=== PATIENT | male | born 1935 | race Caucasian/White ===

== ENCOUNTER → 2020-11-03 10:12 | Outpatient (BNVA) | payer MEDICARE, MEDICAID, SELFPAY | PROVIDERS: Family Provider Chiropractor Orthopedic; PCP Nurse Practitioner; Visit Provider Internal Medicine Cardiovascular Disease | DX: I10 Essential (primary) hypertension (principal); R60.9 Edema, unspecified; I63.9 Cerebral infarction, unspecified | CPT/HCPCS: 80053; 80061; 83880; 84443 ==

== ENCOUNTER → 2020-11-06 09:40 | Outpatient (BNVA) | payer MEDICARE, MEDICAID, SELFPAY | PROVIDERS: Family Provider Chiropractor Orthopedic; PCP Nurse Practitioner; Visit Provider Internal Medicine Cardiovascular Disease | DX: R60.9 Edema, unspecified (principal); I63.9 Cerebral infarction, unspecified; I10 Essential (primary) hypertension; R00.1 Bradycardia, unspecified; I48.11 Longstanding persistent atrial fibrillation; I25.10 Atherosclerotic heart disease of native coronary artery without angina pectoris; I48.91 Unspecified atrial fibrillation | CPT/HCPCS: 84439; 84481 ==

== ENCOUNTER 2021-04-09 11:52 | Outpatient (CLI) | payer MEDICARE, MEDICAID, SELFPAY ==
--- NOTE | 2021-04-09 12:09 | USCV_ITS ---
Mikal Waller Age: 86 Gender: M : 1935 Exam Date: 04/09/2021 12:49 Ordering Phys: Jose Welch Technologist: Exam Location: [facility] – [place] Indication: RT LEG PAIN AND SWELLING HISTORY: Lower extremity swelling. PROCEDURES: Venous duplex imaging was performed in only the right lower extremity. The following venous structures were evaluated: common femoral vein, profunda vein, femoral, popliteal and peroneal trunk veins, causing enous vein, superficial femoral vein, and the popliteal vein. In addition, the posterior tibial and peroneal trunk were evaluated. On the right side, the common femoral, superficial femoral, profunda femoral, popliteal, posterior tibial, greater saphenous veins and the peroneal trunk were identified and interrogated in the standard fashion. FINDINGS: THERE IS DVT IN THE RT SFV, RT POPLETEAL AND RT PERINEAL TRUNK. CALLED PRELIM TO THE PROVIDER. The mid to distal superficial femoral, popliteal and the peroneal trunk were found to be partially compressible. CONCLUSIONS Features of deep vein thrombosis, causing near total occlusion of the mid to distal superficial femoral, popliteal and peroneal trunk veins on the right side. The study is of suboptimal quality because of the poor ultrasonic window Compared to the study from 06/12/2016, the venous thrombosis appeared to be new Dr Louis Merida MD [facility] (Electronically Signed) Final Date: 10 April 2021 13:14 S
== END 2021-04-09 11:53 | disposition home or self-care (01) ==
LOC: RAD 12:01
PROVIDERS: PCP Nurse Practitioner; Visit Provider Nurse Practitioner
DX: M79.604 Pain in right leg (principal); M79.89 Other specified soft tissue disorders
CPT/HCPCS: 93971

== ENCOUNTER 2021-04-09 13:08 | Emergency (ER) | payer MEDICARE, MEDICAID, SELFPAY ==
[2021-04-09 13:39] VITALS: BP 183/90; PULSE 74; RESP 18; TEMP 36.7; O2SAT 98; BMI 35.0
--- NOTE | 2021-04-09 14:07 | W.ED.EXTPRO ---
HPI - Extremity Problem General: Chief complaint: Extremity Problem,Nontraumatic Stated complaint: JUST HAD U/S,FOUND BLOOD CLOTS IN RLE Time Seen by Provider: 04/09/21 13:46 History of Present Illness: HPI Narrative: Patient on Eliquis. Patient was sent over for an ultrasound right lower extremity because of swelling been going on few days. Ultrasound showed DVT. Patient has been keeping leg elevated. MD Complaint: extremity swelling Onset (ago): day(s) Location: right and lower extremity Associated symptoms: Deny chest pain, fever(s) or rash Review of Systems Const: Denies: fever(s), chills or body aches Eyes: Denies: change in vision or blurry vision ENMT: Denies: throat pain or nasal congestion Card: Denies: chest pain or dyspnea on exertion Resp: Denies: dyspnea, productive cough or non-productive cough GI: Denies: abdominal pain, nausea or vomiting : Denies: difficulty urinating Musc: Reports: extremity swelling (Right lower extremity times many days ultrasound showed DVT); Denies: extremity pain Skin/Breast: Denies: rash Neuro: Denies: headache(s) Psych: Denies: anxiety or depression Madi/Lymph: Denies: easy bruising PFSH ED PFSH: Medical History Atrial fibrillation CAD (coronary artery disease) Carotid stenosis CVA (cerebral vascular accident) HTN (hypertension) Hypercholesteremia Surgical History H/O carotid endarterectomy S/P CABG (coronary artery bypass graft) 1977 and 1992 Social History Smoking and tobacco status: never smoked Alcohol intake: current Alcohol intake frequency: holidays/special occasions only Physical Exam Const: COMMON NORMALS: no acute distress Neck/C-Spine: COMMON NORMALS: no JVD Chest: COMMONS NORMALS: normal inspection of the chest Resp: COMMON NORMALS: normal respiratory effort and No use of accessory muscles EFFORT & INSPECTION: Yes able to speak in complete sentences Cardio: COMMON NORMALS: no JVD Extremity: OTHER: Swelling to the right lower extremity slightly tender to touch no redness Psych: COMMON NORMALS: mental status grossly normal Course Vital Signs: Vital signs: Vital Signs Temperature 98.0 F 04/09/21 13:39 Pulse Rate 74 04/09/21 13:39 Respiratory Rate 18 04/09/21 13:39 Blood Pressure 183/90 04/09/21 13:39 Pulse Oximetry 98 04/09/21 13:39 MDM - Extremity (Nontraumatic) MDM Narrative: Medical decision making narrative: Patient with history of positive DVT right lower extremity via ultrasound today. Primary care provider sent him over after ultrasound. Patient already on Eliquis nothing further we can do for this DVT. Patient was encouraged to keep feet elevated above heart level a few hours a day. Can use moist heat and compression wraps. We will increase his diuretic medicine with hydrochlorothiazide and follow-up primary care provider here next week. 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 Condition: Stable Prescriptions: New hydrochlorothiazide 25 mg tablet 25 mg PO DAILY Qty: 14 RF: 0 Discontinued metolazone 2.5 mg tablet 2.5 mg PO .COMPLEX Qty: 10 RF: 4 No Action timolol maleate [Timoptic] 0.5 % drops 1 drop ophthalmic (eye) BID RF: 0 Lumigan 0.01 % drops 1 drop ophthalmic (eye) ONCE RF: 0 Eliquis 5 mg tablet See Rx Instructions .ROUTE .COMPLEX Qty: 60 RF: 11 atorvastatin 40 mg tablet 40 mg PO DAILY Qty: 90 RF: 3 losartan 50 mg tablet 50 mg PO DAILY Qty: 90 RF: 3 potassium chloride 20 mEq tablet extended release 20 meq PO DAILY RF: 0 potassium chloride 10 mEq capsule, extended release 10 meq PO DAILY Qty: 40 RF: 3 furosemide 40 mg tablet 40 mg PO .2 TABS AM, 1 TAB PM Qty: 90 RF: 4 Discharge Orders: Discharge ED (Routine); Ordered 04/09/21 Ordered By: Oscar Lee Referrals: Jose Welch, TRANSPORTATION WORKER [Primary Care Provider] - Discharge Diet: As Directed Discharge Activity: Increase activity as tolerated Patient Instructions: Deep Venous Thrombosis (ED), Leg Edema (ED) Activity Restrictions/Additional Instructions: Follow-up with medical provider as directed. Take medications as prescribed. Return to the ER or your medical provider if condition worsens. Please read and understand discharge instructions. If any questions ask please. Apply moist heat to the lower extremity and make sure you keep lower extremity above level heart least 2 to 4 hours a day. Coding Level of Care Code ED Inspector Weights And Measures for Alphonso Rich
== END 2021-04-09 14:21 | disposition home or self-care (01) ==
PROVIDERS: Emergency Provider Nurse Practitioner Family; PCP Nurse Practitioner
DX: I82.5Y1 Chronic embolism and thrombosis of unspecified deep veins of right proximal lower extremity (principal); Z79.01 Long term (current) use of anticoagulants; I25.10 Atherosclerotic heart disease of native coronary artery without angina pectoris; Z86.73 Personal history of transient ischemic attack (TIA), and cerebral infarction without residual deficits; Z95.1 Presence of aortocoronary bypass graft; M79.604 Pain in right leg; M79.89 Other specified soft tissue disorders
CPT/HCPCS: 93971; 99281

== ENCOUNTER 2021-05-20 10:03 | Outpatient (CLI) | payer MEDICARE, MEDICAID, SELFPAY ==
--- NOTE | 2021-05-20 10:15 | USCV_ITS ---
Mikal Waller Age: 86 Gender: M : 1935 Exam Date: 05/20/2021 10:38 Ordering Phys: Kellee Jain MD ([email or web address]) Technologist: Faiza Fabian Exam Location: [facility] – [place] Indication: A-FIB, CHF BP: 132 / 62 HR: 73 Rhythm: Atrial fibrillation Technical Quality: Adequate MEASUREMENTS (Male / Female) Normal Values 2D ECHO LV Diastolic Diameter PLAX 4.5 cm 4.2 - 5.9 / 3.9 - 5.3 cm LV Systolic Diameter PLAX 3.3 cm IVS Diastolic Thickness 1.9 cm 0.6 - 1.0 / 0.6 - 0.9 cm IVS Systolic Thickness 2.1 cm LVPW Diastolic Thickness 2.0 cm 0.6 - 1.0 / 0.6 - 0.9 cm LVPW Systolic Thickness 1.8 cm LVOT Diameter 2.0 cm LV Ejection Fraction 2D Teich 53.5 % LV Ejection Fraction MOD 2C 66.9 % LV Ejection Fraction 2C AL 66.3 % LA Diameter 3.8 cm LA Width 3.3 cm LA Height 6.4 cm RA Width 4.6 cm RA Height 5.7 cm Aorta at Sinotubular Diameter 3.3 cm DOPPLER AV Peak Velocity 129.0 cm/s LVOT Peak Velocity 77.0 cm/s AV Area Cont Eq vti 2.4 cm squared AV Area Cont Eq pk 1.9 cm squared MV Area PHT 3.2 cm squared MV E' Velocity 99.0 cm/s TR Peak Velocity 252.3 cm/s TR Peak Gradient 25.5 mmHg Right Atrial Pressure 3.0 mmHg Pulmonary Artery Systolic Pressu 28.5 mmHg PV Peak Velocity 99.0 cm/s RV Acceleration Time 0.1 s RV Ejection Time 0.3 s RV AcT/ET 0.3 FINDINGS Left Ventricle Normal left ventricular cavity size and mildly decreased systolic function. Left ventricular ejection fraction is estimated at 50-55 %. There is severe hypokinesis and thinning of mid to apical anteroseptal and mid to apical inferior kilgore. Flattened septum in systole consistent with right ventricle pressure overload. Rhythm precludes evaluation of diastolic function. Right Ventricle Mildly increased right ventricular size. Moderately decreased right ventricular systolic function. Right ventricular systolic pressure 46 mmHg. Right Atrium Mildly increased right atrial size. Right atrial pressure estimated at 15 mm Hg. Left Atrium Mildly increased left atrial size. Mitral Valve Mild mitral annular calcification. Mildly thickened mitral valve. No mitral valve stenosis. No mitral valve regurgitation. Aortic Valve Structurally normal trileaflet aortic valve. No aortic valve stenosis. Mild aortic valve regurgitation. Tricuspid Valve Structurally normal tricuspid valve. No tricuspid valve stenosis. [id number] tricuspid valve regurgitation. Pulmonic Valve Pulmonic valve not well visualized. Mild pulmonary valve regurgitation. Pericardium No pericardial effusion. Aorta Dilated inferior vena cava with decreased respiratory variations. CONCLUSIONS 1. This is a technically difficult study. Optison was used per protocol. 2. Normal left ventricular cavity size and mildly decreased systolic function. Left ventricular ejection fraction is estimated at 50-55 %. There is severe hypokinesis and thinning of mid to apical anteroseptal and mid to apical inferior kilgore. Flattened septum in systole consistent with right ventricle pressure overload. 3. Mildly increased right ventricular size. Moderately decreased right ventricular systolic function. 4. Mild to moderate pulmonary hypertension with pulmonary artery pressure estimated at 46 mm Hg. 5. [id number] tricuspid valve regurgitation. 6. Mild aortic and pulmonary valve regurgitation. 7. No prior similar studies to compare. Kellee Jain MD (Electronically Signed) Final Date: 24 May 2021 11:52 Amended: 24 May 2021 14:49 C
[2021-05-20] MEDS: perflutren protein-a microsphr 0.22 mg/mL SDV 3 mL (10:47)
== END 2021-05-20 10:04 | disposition home or self-care (01) ==
LOC: US 10:06
PROVIDERS: PCP Nurse Practitioner; Visit Provider Internal Medicine Cardiovascular Disease
DX: I48.91 Unspecified atrial fibrillation (principal); I50.9 Heart failure, unspecified; I27.20 Pulmonary hypertension, unspecified; I08.2 Rheumatic disorders of both aortic and tricuspid valves
CPT/HCPCS: C8929; Q9956

== ENCOUNTER 2021-10-04 10:09 | Outpatient (RCR) | payer OTHER, SELFPAY | END 2021-10-22 23:59 | disposition home or self-care (01) | LOC: GPT 10:09 | PROVIDERS: PCP Nurse Practitioner; Referring Provider Nurse Practitioner; Visit Provider Nurse Practitioner | DX: R26.89 Other abnormalities of gait and mobility (principal); I69.351 Hemiplegia and hemiparesis following cerebral infarction affecting right dominant side | CPT/HCPCS: 97110; 97112; 97116; 97162 ==

== ENCOUNTER 2021-11-12 16:26 | Inpatient (IN) | payer MEDICARE, MEDICAID, SELFPAY ==
[2021-11-12 16:36] VITALS: BP 141/77; PULSE 74; RESP 16; TEMP 36.3; O2SAT 100; BMI 33.0
[2021-11-12 16:57] LABS: Basophils % 0.1 %; Eosinophils # 0.1 10^3/uL (0.0-0.8); Eosinophils % 1.1 %; Lymphocytes # 1.8 10^3/uL (0.8-4.8); Lymphocytes % 18.5 %; Mean Corpuscular HGB Conc 28.2 g/dL (30.0-36.0); Mean Corpuscular Hemoglobin 18.9 pg (28.0-34.0); Mean Corpuscular Volume 67.1 fl (80-94); Mean Platelet Volume 10.2 fL (7.4-10.4); Monocytes # 1.8 10^3/uL (0.2-0.9); Monocytes % 18.3 %; Neutrophils # 5.99 10^3/uL (1.8-7.7); Neutrophils % 61.4 %; Nucleated Red Blood Cells # 0.4 /100WBC; Nucleated Red Blood Cells % 3.6 %; Platelet Count 500 10^3/cmm (130-400); Red Blood Count 2.22 10^6/uL (4.1-5.3); White Blood Count 9.8 10^3/uL (4.0-10.0)
[2021-11-12 17:04] LABS: Hematocrit 14.9 % (42.0-52.0); Hemoglobin 4.2 g/dL (11.7-16.6)
--- NOTE | 2021-11-12 17:17 | PC.NURSE ---
INFORMED DR. DANG OF HEMOGLOBIN OF 4.2 SHE VERBALIZED UNDERSTANDING. NO FURTHER ORDERS.
[2021-11-12 17:40] LABS: Alanine Aminotransferase 14 U/L (0-41); Albumin Level 3.8 g/dL (3.5-5.2); Alkaline Phosphatase 62 IU/L (40-130); Anion Gap 18.5 (5-19); Aspartate Amino Transferase 19 U/L (0-40); Blood Urea Nitrogen 49 mg/dL (8-23); Calcium 9.6 mg/dL (8.5-10.5); Carbon Dioxide 21 mmol/L (22-29); Chloride 95 mmol/L (98-107); Globulin 2.7 g/dL (1.3-4.6); Glucose 124 mg/dL (65-115); Magnesium 2.4 mg/dL (1.7-2.3); Osmolality Calculated 284 mOsm/kg (285-295); Potassium 4.5 mmol/L (3.5-5.1); Sodium 130 mmol/L (136-145); Total Bilirubin 0.4 mg/dL (0.15-1.2); Total Protein 6.5 g/dL (6.6-8.7)
--- NOTE | 2021-11-12 17:43 | CTR_ITS ---
PROCEDURE INFORMATION: Exam: CT Abdomen And Pelvis With Contrast Exam date and time: 11/12/2021 5:43 PM Age: 86 years old Clinical indication: Prior surgery; Patient HX: Gi bleed. Bloody stool since 08/12; Additional info: Gi bleed, pain TECHNIQUE: Imaging protocol: Computed tomography of the abdomen and pelvis with contrast. Radiation optimization: All CT scans at this facility use at least one of these dose optimization techniques: automated exposure control; mA and/or kV adjustment per patient size (includes targeted exams where dose is matched to clinical indication); or iterative reconstruction. Contrast material: VISI 320; Contrast volume: 95 ml; Contrast route: INTRAVENOUS (IV); COMPARISON: CT Abdomen/Pelvis Renal [id number] 12/16/2016 7:35 AM RADIATION DOSE METRICS: Total DLP (mGy-cm): 080527 FINDINGS: Lungs: Parenchymal scarring at the posterior right lower lobe lung base. Liver: Normal. No mass. Gallbladder and bile ducts: Normal. No calcified stones. No ductal dilation. Pancreas: Normal. No ductal dilation. Spleen: Spleen is absent. Adrenal glands: Normal. No mass. Kidneys and ureters: Atrophic renal parenchyma. Small simple bilateral renal cortical cysts. Negative for hydronephrosis. No calcified renal stones. Stomach and bowel: No focal bowel wall mass. Diverticulosis coli is present. No inflammatory bowel wall thickening. Negative for bowel obstruction. Negative for bowel perforation. No extravasation of intravascular contrast into the bowel lumen identified. Appendix: No evidence of appendicitis. Intraperitoneal space: Unremarkable. No free air. No significant fluid collection. Vasculature: Scattered calcified plaques of arteries. No dissection. No abdominal aortic aneurysm. Lymph nodes: Unremarkable. No enlarged lymph nodes. Urinary bladder: Unremarkable as visualized. Reproductive: Surgical clips or brachytherapy seeds bracketing the prostate gland. Bones/joints: Unremarkable. No acute fracture. Soft tissues: Unremarkable. CT/CT abdomen pelvis w con* [id number] IMPRESSION: 1. Negative for active gastrointestinal bleeding. 2. Negative for acute abdominopelvic pathology. COMMENTS: Consistent with the [employer]'s Incidental Findings Committee white paper (J Am Jigna Radiol 2018): Any incidental renal lesion less than 1 cm or classified as too small to characterize, or any incidental cystic renal lesion characterized as simple-appearing, is likely benign. No follow-up imaging is recommended for these lesions per consensus recommendations based on imaging criteria.
--- NOTE | 2021-11-12 17:43 | PC.PHAR ---
PTS DAUGHTER CONFIRMED THE PTS MEDICATIONS-PTS DAUGHTER STATES THE PT HAS NEVER TAKEN DONEPEZIL FILLED ON 10/06/21 STATES THEY DECIDED NOT TO GIVE IT TO THE PT--PTS DAUGHTER STATES THE PTS KCL JUST GOT INCREASED 20MEQ BID-PTS DAUGHTER STATES THE PT HASNT TAKEN METOLAZONE SINCE Monday11/07/[address] TOLD THE PT NOT TO TAKE- NOTES ARE MADE IN THE PHARMACY COMMENTS
--- NOTE | 2021-11-12 17:45 | ED_ITS ---
HPI - Recheck/Abnormal Lab/Rx General: Chief Complaint: Recheck/Abnormal Lab/Rx Stated Complaint: GI BLEED Time Seen by Provider: 11/12/21 16:39 Source: patient and family Mode of arrival: EMS Limitations: no limitations History of Present Illness: HPI narrative: 86-year-old male on Eliquis with bright red rectal bleeding, unclear duration, directed to the ED by PCP after outpatient labs resulted a hemoglobin of 4.6 earlier today. Hemoglobin on 10/18/2021 was 12.7 The patient has dementia and is unable to say how long he has been having bloody stools, but he has complained on occasion right-sided abdominal pain, per his daughter. She states he has been sleeping more than usual, generally weak. History of A. fib and DVT(while on eliquis) At this time, he denies abdominal pain, nausea, vomiting, rectal pain. MD complaint: wound re-check Review of Systems General: Reports: 10 or more systems reviewed and unremarkable except in HPI and below and Other (Dementia) Const: Reports: fatigue, malaise and daytime sleepiness; Denies: fever(s), chills or body aches Eyes: Denies: change in vision or blurry vision ENMT: Denies: bleeding gums or epistaxis Card: Reports: edema, swelling of feet/ankles, lightheadedness and dyspnea on exertion; Denies: chest pain or palpitations Resp: Denies: dyspnea, productive cough, hemoptysis or chest congestion GI: Reports: hematochezia and melena; Denies: abdominal pain, nausea, vomiting, hematemesis, diarrhea, constipation, bloating, pain on defecation or rectal pain : Denies: flank pain, difficulty urinating or dysuria Musc: Reports: back pain and extremity swelling Skin/Breast: Reports: changes in skin color; Denies: rash, pruritus or erythema Neuro: Reports: weakness in extremities, difficulty walking and dizziness; Denies: headache(s), numbness in extremities, frequent falls or confusion Psych: Reports: sleeping more and memory loss Endo: Reports: tired all the time and cold intolerance; Denies: polyuria or polydipsia Madi/Lymph: Reports: easy bruising and easy bleeding PFS ED PFSH: Medical History Atrial fibrillation CAD (coronary artery disease) Carotid stenosis CVA (cerebral vascular accident) HTN (hypertension) Hypercholesteremia Surgical History H/O carotid endarterectomy S/P CABG (coronary artery bypass graft) 1977 and 1992 Social History Smoking and tobacco status: never smoked Alcohol intake: current Alcohol intake frequency: holidays/special occasions only Physical Exam Const: COMMON NORMALS: patient oriented x3 GENERAL APPEARANCE: cooperative and ill appearing; not in distress, not diaphoretic and not Edematous NUTRITIONAL APPEARANCE: obese HENMT: COMMON NORMALS: normocephalic and atraumatic HEAD & SCALP: normocephalic and atraumatic FACE & SINUS: normal facial exam and face symmetric Eye: COMMON NORMALS: Equal, round and reactive pupils present, EOMs intact bilaterally and no scleral icterus CONJUNCTIVA: Yes conjunctival abnormal positive bilateral pallor PUPIL: Yes Equal, round and reactive pupils present Neck/C-Spine: COMMON NORMALS: full ROM, no lymphadenopathy, supple and no JVD Lymph: LYMPHATIC: lymphedema (Right lower extremity) Chest: COMMONS NORMALS: normal inspection of the chest Resp: COMMON NORMALS: normal respiratory effort and No use of accessory muscles EFFORT & INSPECTION: Yes able to speak in complete sentences, No tachypneic and No respiratory distress Cardio: COMMON NORMALS: no JVD RHYTHM: abnormal rhythm irregularly irregular GI: COMMON NORMALS: Normal to inspection, nondistended, normoactive bowel sounds present and non-tender INSPECTION: No abdominal wall ecchymosis, No abdominal distension and No Fluid wave present AUSCULTATION: Yes normoactive bowel sounds PERCUSSION: no fluid wave Extremity: GENERAL: Yes edema Neuro: COMMON NORMALS: patient oriented x3 and no focal motor deficits SPEECH: speech normal GAIT: Yes Unable to assess gait Skin: COMMON NORMALS: no rashes or lesions noted, no wounds, no jaundice and no petechiae GENERAL SKIN EXAM: no rashes or lesions noted and no ecchymo Course Vital Signs: Vital signs: Vital Signs Temperature 97.7 F 11/12/21 19:01 Pulse Rate 60 11/12/21 19:33 Respiratory Rate 14 11/12/21 19:33 Blood Pressure 133/68 11/12/21 19:33 Pulse Oximetry 95 11/12/21 19:33 MDM - Recheck/Abnormal Lab/Rx MDM Narrative: Medical decision making narrative: 86-year-old male on Eliquis brought in by EMS with symptomatic anemia from a GI bleed. No history of cirrhotic liver disease or prior GI bleeding. Hemodynamically stable on arrival, normal mentation, no active hematemesis or brisk rectal bleeding. Other cell counts stable. PRBC transfusion x2 ordered. FFPx1 Andexxa to reverse eliquis. Considering that he takes it for A. fib protonix 80mg IV for presumed upper GI source. No acute process on CT abd/pelvis, no active extravasation of contrast into the bowel lumen. The patient will be admitted while he recieves his transfusion, serial hbg checks, and close monitoring for active/recurrent bleeding. Accepting hospitalist, Dr. Mac Lab Data: Attestation: I reviewed the patient's lab results. Labs: Lab Results 11/12/21 11/12/21 11/12/21 16:50 16:50 16:50 WBC 9.8 10^3/uL 10^3/ uL (4.0-10.0) RBC 2.22 10^6/uL L 10 ^6/uL (4.1-5.3) Hgb 4.2 g/dL L* g/dL (11.7-16.6) Hct 14.9 % L* % (42.0-52.0) MCV 67.1 fl L fl (80-94) MCH 18.9 pg L pg (28.0-34.0) MCHC 28.2 g/dL L g/dL (30.0-36.0) RDW 22.0 % H % (12.1-15.1) Plt Count 500 10^3/cmm H 10 ^3/cmm (130-400) MPV 10.2 fL fL (7.4-10.4) Neut % (Auto) 61.4 % % Lymph % (Auto) 18.5 % % Sioux % (Auto) 18.3 % % Eos % (Auto) 1.1 % % Baso % (Auto) 0.1 % % Neut # (Auto) 5.99 10^3/uL 10^3 /uL (1.8-7.7) Lymph # (Auto) 1.8 10^3/uL 10^3/ uL (0.8-4.8) Sioux # (Auto) 1.8 10^3/uL H 10^ 3/uL (0.2-0.9) Eos # (Auto) 0.1 10^3/uL 10^3/ uL (0.0-0.8) Baso # (Auto) 0.0 10^3/uL 10^3/ uL (0.0-0.1) Nucleated RBC % (a uto) 3.6 % % Nucleated RBCs # 0.4 /100WBC /100W BC PT INR Sodium 130 mmol/L L mmol /L (136-145) Potassium 4.5 mmol/L mmol/L (3.5-5.1) Chloride 95 mmol/L L mmol/ L (98-107) Carbon Dioxide 21 mmol/L L mmol/ L (22-29) Anion Gap 18.5 (5-19) BUN 49 mg/dL H mg/dL (8-23) Creatinine 1.2 mg/dL mg/dL (0.7-1.2) GFR Calculation Not Reportable Glucose 124 mg/dL H mg/dL (65-115) Calculated Osmolal ity 284 mOsm/kg L mOs m/kg (285-295) Calcium 9.6 mg/dL mg/dL (8.5-10.5) Magnesium 2.4 mg/dL H mg/dL (1.7-2.3) Total Bilirubin 0.4 mg/dL mg/dL (0.15-1.2) AST 19 U/L U/L (0-40) ALT 14 U/L U/L (0-41) Alkaline Phosphata se 62 IU/L IU/L (40-130) Total Protein 6.5 g/dL L g/dL (6.6-8.7) Albumin 3.8 g/dL g/dL (3.5-5.2) Globulin 2.7 g/dL g/dL (1.3-4.6) Urine Color Urine Appearance Urine pH Ur Specific Gravit y Urine Protein Urine Glucose (UA) Urine Ketones Urine Blood Urine Nitrate Urine Bilirubin Urine Urobilinogen Ur Leukocyte Vonnie ase Blood Type A Negative Rho(D) Type Negative Antibody Screen Positive Antibody Identific ation Anti-Fya Crossmatch See Detail 01/21/22 01/21/22 16:50 17:00 WBC RBC Hgb Hct MCV MCH MCHC RDW Plt Count MPV Neut % (Auto) Lymph % (Auto) Sioux % (Auto) Eos % (Auto) Baso % (Auto) Neut # (Auto) Lymph # (Auto) [place] # (Auto) Eos # (Auto) Baso # (Auto) Nucleated RBC % (a uto) Nucleated RBCs # PT 19.60 SECONDS H S ECONDS (12.1-14.9) INR 1.62 H (0.8-1.2) Sodium Potassium Chloride Carbon Dioxide Anion Gap BUN Creatinine GFR Calculation Glucose Calculated Osmolal ity Calcium Magnesium Total Bilirubin AST ALT Alkaline Phosphata se Total Protein Albumin Globulin Urine Color Yellow (Yellow) Urine Appearance Clear (CLEAR) Urine pH 7 (5-7) Ur Specific Gravit y 1.005 (1.005-1.030) Urine Protein Neg (Negative) Urine Glucose (UA) Norm (Normal) Urine Ketones Negative (Negative) Urine Blood Neg (Negative) Urine Nitrate Negative (Negative) Urine Bilirubin Neg (Negative) Urine Urobilinogen Norm mg/dL mg/dL (Negative) Ur Leukocyte Vonnie ase Negative (Negative) Blood Type Rho(D) Type Antibody Screen Antibody Identific ation Crossmatch Discharge Plan Discharge Patient Disposition: Admitted As Inpatient Clinical Impression: Symptomatic anemia, Anticoagulated Gastrointestinal bleeding Qualifiers: GI bleed type/associated pathology: unspecified gastrointestinal hemorrhage type Qualified Code(s): K92.2 - Gastrointestinal hemorrhage, unspecified Condition: Stable Coding Level of Care Code ED Psychology Lecturer for [facility] Fwd Exam Comprehensive
[2021-11-12 17:51] LABS: INR 1.62 (0.8-1.2)
[2021-11-12] MEDS: iodixanol 320 mg/mL 100mL Btl IV (18:02)
[2021-11-12] MEDS: factor xa, inactivated-zhzo 400 MG in empty flexible container 1 EACH, non-DEHP filter ... 180 MG IV (18:18)
[2021-11-12 18:31] LABS: Add Urine Microscopic? NO; Charge for UA Resulting for Rev
[2021-11-12 18:34] LABS: Bilirubin Urine Neg (Negative); Blood Urine Neg (Negative); Glucose Urine UA Norm (Normal); Ketones Urine Negative (Negative); Leukocyte Esterase Urine Negative (Negative); Nitrate Urine Negative (Negative); Protein Urine Neg (Negative); Specific Gravity, Urine 1.005 (1.005-1.030); Urine Appearance Clear (CLEAR); Urine Color Yellow (Yellow); Urobilinogen Urine Norm (Negative); pH Urine 7 (5-7)
[2021-11-12 18:41] VITALS: BP 150/53; PULSE 67; RESP 15; TEMP 36; O2SAT 96
[2021-11-12] MEDS: factor xa, inactivated-zhzo 480 MG in empty flexible container 1 EACH, non-DEHP filter ... 24 MG IV (18:41)
[2021-11-12 19:01] VITALS: BP 127/60; PULSE 69; RESP 16; TEMP 36.5; O2SAT 94
--- NOTE | 2021-11-12 19:19 | PC.NURSE ---
REPORT GIVE WILLIAM JACOBO RN ASSUMED CARE.
[2021-11-12 19:33] VITALS: BP 133/68; PULSE 60; RESP 14; O2SAT 95
--- NOTE | 2021-11-12 20:40 | ECG_ITS ---
[facility] Test Date: 2021-11-13 Pat Name: Mikal Waller Department: Room: ICU06 Gender: Male Protection Consultant: : 1935 Requested By: Magno Mac Order Number: [id number] Marciano MD: Louis Merida M.D. Measurements Intervals [place] Rate: 70 P: VA: QRS: 13 QRSD: 112 T: 60 QT: 448 QTc: 484 Interpretive Statements ATRIAL FIBRILLATION WITH ABERRANT CONDUCTION OR VENTRICULAR PREMATURE COMPLEXES ANTEROSEPTAL MYOCARDIAL INFARCTION , PROBABLY OLD [40+ ms Q WAVE IN V1-V4] ST DEPRESSION, CONSIDER SUBENDOCARDIAL INJURY [0.1+ mV ST DEPRESSION] Compared to ECG 10/18/2019 17:05:19 ST (T wave) deviation now present Myocardial infarct finding still present Electronically Signed On 11-14-2021 20:07:18 SCHOOL OCCUPATIONAL THERAPIST by Louis Merida M.D. [email or web address]
--- NOTE | 2021-11-12 20:45 | P.HP_ITS ---
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 Hemoglobin on 10/18/2021 was 12.7. When I examined the patient he was not sure of any bright red blood per rectum or melena, patient has underlying dementia and is not a good historian.Patient currently denies any chest pain, shortness of breath, abdominal pain , nausea , vomiting. Upon arrival in the ER: He was worked up for above-mentioned complaint: Pertinent imaging studies: CT abdomen and pelvis with contrast: 1. Negative for active gastrointestinal bleeding. 2. Negative for acute abdominopelvic pathology Pertinent labs: WBC 9.8, H&H: 4.2/ 14 , platelet count: 500 , PT/INR: 19.60/1.62 , sodium 130, serum potassium 4.5, BUN and serum creatinine:49/1.2 , Patient received Adenaxate Alpha in the ER and was also given Protonix 80 mg IV one-time dose. Was typed and crossmatched for 3 units PRBC. Review of Systems Const: Denies: fever(s), chills, body aches, change in appetite or diaphoresis Card: Denies: palpitations, edema, swelling of feet/ankles, dyspnea on exertion, orthopnea or leg pain with exertion Resp: Denies: dyspnea, productive cough, wheezing or pain on inspiration GI: Denies: abdominal pain, nausea, vomiting, diarrhea or constipation : Denies: flank pain or difficulty urinating Musc: Denies: back pain, extremity pain or extremity swelling Neuro: Denies: headache(s), difficulty walking or confusion Medications/Allergies Home Medications Medication Instructions Recorded Confirmed Last Taken Type apixaban [Eliquis] 5 mg PO BID 11/12/21 11/12/21 11/12/21 08:30 History aspirin [Aspir-81] 81 mg PO QPM 11/12/21 11/12/21 11/11/21 History atorvastatin 40 mg PO BEDTIME 11/12/21 11/12/21 11/11/21 History fluticasone propionate 1 spray INTRANASAL BID 11/12/21 11/12/21 Unknown History furosemide 80 mg PO BID 11/12/21 11/12/21 11/12/21 13:30 History ipratropium bromide [Atrovent HFA] 2 puff INHALATION QID PRN 11/12/21 11/12/21 Unknown History losartan 25 mg PO DAILY@12 11/12/21 11/12/21 11/12/21 History magnesium 500 mg PO QPM 11/12/21 11/12/21 11/11/21 History metolazone See Rx Instructions .ROUTE .COMPLEX 11/12/21 11/12/21 11/07/21 History potassium chloride 20 meq PO BID 11/12/21 11/12/21 11/12/21 13:30 History spironolactone 25 mg PO DAILY@12 11/12/21 11/12/21 11/12/21 History Allergies Allergy/AdvReac Type Severity Reaction Status Date / Time No Known Allergies Allergy Verified 11/12/21 17:47 PFSH Acute PFSH: Medical History Atrial fibrillation CAD (coronary artery disease) Carotid stenosis CVA (cerebral vascular accident) HTN (hypertension) Hypercholesteremia Surgical History H/O carotid endarterectomy S/P CABG (coronary artery bypass graft) 1977 and 1992 Social History Smoking and tobacco status: never smoked Alcohol intake: current Alcohol intake frequency: holidays/special occasions only Vitals/I&O/Wt Last Vital Signs Temp 97.7 F 11/12/21 19:01 Pulse 60 11/12/21 19:33 Resp 14 11/12/21 19:33 BP 133/68 11/12/21 19:33 Pulse Ox 95 11/12/21 19:33 11/12/21 11/12/21 11/12/21 06:59 14:59 22:59 Intake Total 0 / 0 Balance 0 / 0 Weight last 48 hrs Weight 113.398 kg Physical Exam Const: COMMON NORMALS: patient oriented x3 HENMT: COMMON NORMALS: normocephalic and atraumatic HEAD & SCALP: normocephalic and atraumatic Resp: COMMON NORMALS: clear to auscultation bilaterally AUSCULTATION: clear to auscultation bilaterally Cardio: COMMON NORMALS: No rub (Cardio) PERIPHERAL PULSES: Peripheral pulses 2+ throughout OTHER: Irregularly irregular rhythm, S1-S2 variable intensity GI: COMMON NORMALS: Normal to inspection, nondistended, normoactive bowel sounds present, Soft to palpation, non-tender, No hepatosplenomegaly present and no masses AUSCULTATION: Yes normoactive bowel sounds PALPATION: Yes Soft to palpation and Yes No hepatosplenomegaly present RECTAL EXAM: Yes deferred Extremity: COMMON NORMALS: no clubbing, cyanosis or edema and no pedal edema Neuro: COMMON NORMALS: patient oriented x3 Data : 11/13/21 03:02 11/13/21 03:02 A&P Assessment and plan (1) Gastrointestinal bleeding: Status: Acute (2) Anemia: Status: Acute (3) Atrial fibrillation: Status: Acute (4) Hyponatremia: Status: Acute (5) CVA (cerebral vascular accident): Status: Acute Qualifiers: CVA mechanism: unspecified Qualified Code(s): I63.9 - Cerebral infarction, unspecified (6) CAD (coronary artery disease): Status: Acute (7) Carotid stenosis: Status: Acute (8) HTN (hypertension): Status: Acute (9) S/P CABG (coronary artery bypass graft): Status: Acute Additional A&P Information Mikal Waller is a 86 year old male PMHx of HTN, CAD s/p CABG in 1977 and 1995 (BENDER-LAD, SVG to RCA and OM, 30% distal LM, 30-40% stenosis in large diagonal, occluded [place] RCA and LAD); carotid artery stenosis s/p right carotid endarterectomy, dyslipidemia obesity , 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 Hemoglobin on 10/18/2021 was 12.7. #Severe anemia secondary to GI bleed likely secondary to anticoagulation side effect: Admission hemoglobin 4.2 repeat hemoglobin has down trended to 3.9. Continue to monitor H&H Q4h Transfused 3 units PRBC Protonix 40 mg IV every 12 hours day N.p.o. Monitor intake output Patient will need EGD and possibly colonoscopy. #Hypovolemic hyponatremia: Patient has received 1 L normal saline bolus in the ER Continue normal saline at 75 cc an hour #History of DVT: Currently anticoagulation on hold #History of A. fib: Currently rate is well controlled. Continue telemetry monitoring Anticoagulation on hold #History of coronary artery disease status post CABG #History of CVA #History of carotid artery stenosis status post right CEA #CODE STATUS: Full code Attestations Medical Necessity Statement*: Patient is to be in hospital for management of severe anemia secondary to GI bleed. Anticipated length of stay greater than 2 midnights. Coding Level of Care Code Acute Labor Arbitrator for g Fwd Exam Detailed Diagnoses Gastrointestinal bleeding K92.2 Anemia D64.9 Atrial fibrillation I48.91 Hyponatremia E87.1 CVA (cerebral vascular accident) I63.9 CVA mechanism: unspecified CAD (coronary artery disease) I25.10 Carotid stenosis I65.29 HTN (hypertension) I10 S/P CABG (coronary artery bypass graft) Z95.1
[2021-11-12 22:07] VITALS: BP 107/49; PULSE 75; RESP 16; TEMP 36.4; O2SAT 99
[2021-11-12] MEDS: sodium chloride 0.9% (100 ml) 100 ML 50 ML (22:07)
[2021-11-12] MEDS: pantoprazole 40 mg SDV 80 MG IVP (22:16)
[2021-11-12 22:25] LABS: Hematocrit 14.1 % (42.0-52.0); Hemoglobin 3.9 g/dL (11.7-16.6)
[2021-11-12 22:30] VITALS: BP 104/45; PULSE 60; RESP 19; TEMP 36.3; O2SAT 97
[2021-11-13] VITALS (57 sets, daily range): BP systolic 101–151; BP diastolic 43–83; PULSE 39–101; RESP 12–34; TEMP 36.7; O2SAT 90–99
--- NOTE | 2021-11-13 00:48 | PC.NURSE ---
Arrived from ED with 1st unit of blood infusing, AO x4, no c/o, transferred to bed with lift sheet
--- NOTE | 2021-11-13 01:03 | PC.NURSE ---
Dr. Mac on unit, this nurse inquired about giving lasix between blood products due to 3 units being ordered, this nurse was advised to monitor patient
[2021-11-13 03:21] LABS: Basophils % 0.2 %; Eosinophils # 0.2 10^3/uL (0.0-0.8); Eosinophils % 1.2 %; Lymphocytes # 2.7 10^3/uL (0.8-4.8); Lymphocytes % 20.8 %; Mean Corpuscular HGB Conc 28.2 g/dL (30.0-36.0); Mean Corpuscular Hemoglobin 19.8 pg (28.0-34.0); Mean Corpuscular Volume 70.2 fl (80-94); Mean Platelet Volume 10.8 fL (7.4-10.4); Monocytes # 2.4 10^3/uL (0.2-0.9); Monocytes % 18.5 %; Neutrophils # 7.71 10^3/uL (1.8-7.7); Neutrophils % 58.8 %; Nucleated Red Blood Cells # 0.4 /100WBC; Nucleated Red Blood Cells % 3.2 %; Platelet Count 480 10^3/cmm (130-400); Red Blood Count 2.42 10^6/uL (4.1-5.3); Red Cell Distribution Width 24.5 % (12.1-15.1); White Blood Count 13.1 10^3/uL (4.0-10.0)
[2021-11-13 03:23] LABS: Hemoglobin 4.8 g/dL (11.7-16.6)
[2021-11-13] MEDS: sodium chloride 0.9% (100 ml) 100 ML (03:37)
[2021-11-13 03:56] LABS: Alanine Aminotransferase 14 U/L (0-41); Albumin Level 3.6 g/dL (3.5-5.2); Alkaline Phosphatase 61 IU/L (40-130); Aspartate Amino Transferase 26 U/L (0-40); Blood Urea Nitrogen 47 mg/dL (8-23); Calcium 9.4 mg/dL (8.5-10.5); Carbon Dioxide 22 mmol/L (22-29); Chloride 97 mmol/L (98-107); Globulin 2.8 g/dL (1.3-4.6); Glucose 119 mg/dL (65-115); Magnesium 2.5 mg/dL (1.7-2.3); Osmolality Calculated 287 mOsm/kg (285-295); Sodium 132 mmol/L (136-145); Total Bilirubin 0.6 mg/dL (0.15-1.2); Total Protein 6.4 g/dL (6.6-8.7)
[2021-11-13 03:57] LABS: Anion Gap 17.7 (5-19); Potassium 4.7 mmol/L (3.5-5.1)
--- NOTE | 2021-11-13 08:06 | P.PN_ITS ---
Subjective Subjective: Interval history: Nursing reports no obvious bright red blood that has been passed in the ICU. He is currently receiving his third unit of packed red blood cells. He denies any abdominal pain. Medications: Reviewed: Yes Vitals/I&O/Wt Last Vital Signs Temp 98.1 F 11/13/21 03:59 Pulse 62 11/13/21 07:28 Resp 17 11/13/21 07:28 BP 110/48 11/13/21 07:28 Pulse Ox 98 11/13/21 07:28 11/12/21 11/13/21 11/13/21 22:59 06:59 14:59 Intake Total 194 / 194 700 / 894 0 / 0 Output Total 1400 / 1400 Balance 194 / 194 -700 / -506 0 / 0 Weight last 48 hrs Weight 109.316 kg Weight 113.398 kg Physical Exam Narrative: EXAM NARRATIVE: General exam no apparent distress Neck is supple Cardiovascular irregular, irregular with slightly slow rate Lungs clear Abdomen is soft. Bowel sounds are noted Extremities 1+ edema bilaterally Urinary Catheter Management^: Mo: Cath Placed During This Visit: yes Urinary Catheter Date of Insertion: 11/12/21 Data : 11/13/21 03:02 11/13/21 03:02 A&P Assessment and plan (1) Gastrointestinal bleeding: Presented with bright red blood per rectum. Received some FFP, and is receiving his third unit of blood currently. Hemoglobin and hematocrit will be done following transfusion Was on Eliquis. This is on hold along with antiplatelets It appears that he received factor Xa and activated in prothrombin complex as well GI consult regarding bleeding Protonix IV Status: Acute Qualifiers: GI bleed type/associated pathology: unspecified gastrointestinal hemorrhage type Qualified Code(s): K92.2 - Gastrointestinal hemorrhage, unspecified (2) Anemia: Currently being transfused. Recheck hemoglobin following. Secondary to acute GI blood loss. Status: Acute (3) Atrial fibrillation: Rhythm appears controlled currently. Anticoagulation discontinued currently secondary to bleeding Status: Acute (4) Hyponatremia: Mild. Continue to monitor Status: Acute (5) CVA (cerebral vascular accident): History of CVA in the past. I informed the patient that his CVA risk is higher being off anticoagulant but we have no choice at this time. Status: Acute Qualifiers: CVA mechanism: unspecified Qualified Code(s): I63.9 - Cerebral i nfarction, unspecified (6) CAD (coronary artery disease): Hold any antiplatelets currently. This is secondary to recent active bleeding. Last echo April demonstrated EF 50 to 55%. It appears he is being treated for chronic systolic heart failure and this currently appears compensated. Will monitor for any fluid overload with blood transfusion. Status: Acute (7) Carotid stenosis: Status: Acute (8) HTN (hypertension): Status: Acute (9) S/P CABG (coronary artery bypass graft): Status: Acute Additional A&P Information History of DVT, March right lower extremity Currently a full code SCDs for DVT prophylaxis Attestations Medical Necessity Statement*: Needs continued hospitalization secondary to severe anemia, acute GI bleed Critical Care Time: Critical Care Time (min): 32 Other Attestations: The high probability of a clinically significant, sudden or life threatening deterioration of the patient's [GI, cardiac, vascular] system(s) required my full and direct attention, intervention and personal ma nagement. The critical care time is as shown. This time is in addition to time spent performing any reported procedures but includes the following: [x] Data and vital sign review and interpretation [x] Patient assessment, examination and intervention [x] Documentation [x] Medication orders and management Coding Level of Care Code Acute Mainframe Systems Programmer for Chg Fwd Diagnoses Gastrointestinal bleeding K92.2 GI bleed type/associated pathology: unspecified gastrointestinal hemorrhage type Anemia D64.9 Atrial fibrillation I48.91 Hyponatremia E87.1 CVA (cerebral vascular accident) I63.9 CVA mechanism: unspecified CAD (coronary artery disease) I25.10 Carotid stenosis I65.29 HTN (hypertension) I10 S/P CABG (coronary artery bypass graft) Z95.1
[2021-11-13] MEDS: pantoprazole 40 mg SDV IVP ×2 (10:28→20:32)
[2021-11-13] MEDS: sodium chloride 0.9% (100 ml) 100 ML 125 ML (10:48)
[2021-11-13] MEDS: FUROsemide 10 mg/mL SDV 4mL 40 MG IVP (15:10)
[2021-11-13] MEDS: lanolin oint 7 gm 1 APPLIC TOPICAL (17:39)
[2021-11-13 17:48] LABS: Hematocrit 27.3 % (42.0-52.0); Hemoglobin 8.5 g/dL (11.7-16.6)
[2021-11-14] VITALS (37 sets, daily range): BP systolic 94–155; BP diastolic 43–113; PULSE 50–116; RESP 15–26; TEMP 36.6–36.9; O2SAT 91–97
[2021-11-14] MEDS: zolpidem 5 mg Tablet PO ×2 (01:02→23:57)
[2021-11-14 05:28] LABS: Basophils # 0.1 10^3/uL (0.0-0.1); Basophils % 0.6 %; Eosinophils # 0.4 10^3/uL (0.0-0.8); Eosinophils % 2.1 %; Hematocrit 25.3 % (42.0-52.0); Hemoglobin 7.7 g/dL (11.7-16.6); Lymphocytes # 2.5 10^3/uL (0.8-4.8); Lymphocytes % 14.9 %; Mean Corpuscular HGB Conc 30.4 g/dL (30.0-36.0); Mean Corpuscular Hemoglobin 23.1 pg (28.0-34.0); Mean Platelet Volume 10.9 fL (7.4-10.4); Monocytes # 3.2 10^3/uL (0.2-0.9); Monocytes % 18.6 %; Neutrophils # 10.57 10^3/uL (1.8-7.7); Neutrophils % 62.2 %; Nucleated Red Blood Cells # 1.6 /100WBC; Nucleated Red Blood Cells % 9.4 %; Platelet Count 453 10^3/cmm (130-400); Red Blood Count 3.33 10^6/uL (4.1-5.3); Red Cell Distribution Width 24.4 % (12.1-15.1)
[2021-11-14 05:48] LABS: Alanine Aminotransferase 12 U/L (0-41); Albumin Level 3.5 g/dL (3.5-5.2); Alkaline Phosphatase 71 IU/L (40-130); Aspartate Amino Transferase 20 U/L (0-40); Blood Urea Nitrogen 30 mg/dL (8-23); Calcium 8.6 mg/dL (8.5-10.5); Carbon Dioxide 25 mmol/L (22-29); Chloride 102 mmol/L (98-107); Globulin 2.7 g/dL (1.3-4.6); Glucose 109 mg/dL (65-115); Osmolality Calculated 291 mOsm/kg (285-295); Sodium 137 mmol/L (136-145); Total Bilirubin 2.1 mg/dL (0.15-1.2); Total Protein 6.2 g/dL (6.6-8.7)
--- NOTE | 2021-11-14 07:26 | XRR_ITS ---
PROCEDURE INFORMATION: Exam: XR Chest Exam date and time: 11/14/2021 7:26 AM Age: 86 years old Clinical indication: Condition or disease; Prior surgery; Surgery date: 6+ months; Patient HX: HX of leukocytosis TECHNIQUE: Imaging protocol: XR of the chest. Views: 1 view. COMPARISON: CR Chest 1 [place] [id number] 10/18/2019 3:32 PM FINDINGS: Lungs: No consolidation. Bibasilar scarring. Pleural spaces: No pleural effusion. No pneumothorax. Heart/Mediastinum: Heart size is within normal limits for AP technique. Bones/joints: Sternotomy wires noted. Visualized osseous structures are intact. XR/XR chest 1V portable [id number] IMPRESSION: No acute findings.
--- NOTE | 2021-11-14 07:41 | PM.PN ---
Subjective Subjective: Interval history: Mikal reports he is feeling okay. He has not passed any stool overnight. Denies being short of breath. Medications: Reviewed: Yes Vitals/I&O/Wt Last Vital Signs Temp 98.0 F 11/13/21 15:17 Pulse 83 11/14/21 06:00 Resp 20 H 11/14/21 05:00 BP 110/53 11/14/21 04:30 Pulse Ox 91 11/14/21 05:00 11/13/21 11/14/21 11/14/21 22:59 06:59 14:59 Intake Total 350 / 1150 Output Total 1999 / 1999 1500 / 3500 Balance -1650 / -850 -1500 / -2350 Weight last 48 hrs Weight 113.852 kg Weight 109.316 kg Weight 113.398 kg Physical Exam Narrative: EXAM NARRATIVE: General exam no apparent distress Neck is supple Cardiovascular irregular, irregular with controlled rate Lungs clear Abdomen is soft. Bowel sounds are noted Extremities 1+ edema bilaterally Urinary Catheter Management^: Mo: Cath Placed During This Visit: yes Urinary Catheter Date of Insertion: 11/12/21 Data : 11/14/21 04:25 11/14/21 04:25 A&P Assessment and plan (1) Gastrointestinal bleeding: Presented with bright red blood per rectum. Received some FFP Ultimately was transfused 5 units packed red blood cells Was on Eliquis. This is on hold along with antiplatelets It appears that he received factor Xa and activated in prothrombin complex as well GI consult regarding bleeding Continue Protonix IV Repeat hemoglobin this afternoon Initiate clear liquid diet Status: Acute Qualifiers: GI bleed type/associated pathology: unspecified gastrointestinal hemorrhage type Qualified Code(s): K92.2 - Gastrointestinal hemorrhage, unspecified (2) Anemia: Received 5 units of packed red blood cells secondary to severe acute GI blood loss Status: Acute (3) Atrial fibrillation: Rhythm appears controlled currently. Anticoagulation discontinued currently secondary to bleeding Status: Acute (4) Hyponatremia: Resolved Status: Acute (5) CVA (cerebral vascular accident): History of CVA in the past. I informed the patient that his CVA risk is higher being off anticoagulant but we have no choice at this time. Status: Acute Qualifiers: CVA mechanism: unspecified Qualified Code(s): I63.9 - Cerebral infarction, unspecified (6) CAD (coronary artery disease): Hold any antiplatelets currently. This is secondary to recent active bleeding. Last echo April demonstrated EF 50 to 55%. It appears he is being treated for chronic systolic heart failure and this currently appears compensated. Received Lasix following transfusion. Initiate many of his home medications today. Status: Acute (7) Carotid stenosis: Status: Acute (8) HTN (hypertension): Status: Acute (9) S/P CABG (coronary artery bypass graft): Status: Acute Additional A&P Information History of DVT, March right lower extremity Currently a full code SCDs for DVT prophylaxis May transfer out of ICU Attestations Medical Necessity Statement*: Needs continued hospitalization secondary to severe GI bleed requiring 5 units of packed red blood cells per Coding Level of Care Code Acute Mill Crane Operator for Chg Fwd Diagnoses Gastrointestinal bleeding K92.2 GI bleed type/associated pathology: unspecified gastrointestinal hemorrhage type Anemia D64.9 Atrial fibrillation I48.91 Hyponatremia E87.1 CVA (cerebral vascular accident) I63.9 CVA mechanism: unspecified CAD (coronary artery disease) I25.10 Carotid stenosis I65.29 HTN (hypertension) I10 S/P CABG (coronary artery bypass graft) Z95.1
[2021-11-14] MEDS: potassium chloride ER 20 mEq Tablet PO ×2 (08:32→18:12)
[2021-11-14] MEDS: FUROsemide 40 mg Tablet 80 MG PO ×2 (08:32→18:11)
[2021-11-14] MEDS: pantoprazole 40 mg SDV IVP ×2 (08:32→21:45)
--- NOTE | 2021-11-14 11:15 | PM.CONSULT ---
Providers/Reason For Consult Consulting Physician/Specialty*: Endoscopy Reason for Consult*: Profound anemia and hematochezia Attending Physician: Martin Hall MD Primary Care Provider: NAEL Candelario History of Present Illness History of Present Illness Mikal Waller is a 86 year old male who was discovered by family to have blood in his seat at home. He subsequently ended up in the emergency room where he was noted to have profoundly low hemoglobin of 3.9. By report the stool is bright red blood, but there is some confusion about how long its been going on or if there was a melanotic prodrome. I had the pleasure of seeing the patient in the past by doing a colonoscopy on him in 2010. I did that endoscopy at that time, due to a personal history of colon polyps. He has not had any endoscopy in the following 11 years. He is dealing with some multi-infarct dementia, by report of the family, and as a result is not an optimal historian. When I questioned him this morning he is in no distress, and the staff reports no bloody stools for quite some time. It should be noted that he was on antiplatelet and Eliquis therapy on admission. He has received a fair amount of blood and clotting aids since admission. His hemoglobin is up to 7.7 now. Review of Systems General: Reports: ROS unobtainable due to mental status Medications/Allergies Home Medications Medication Instructions Recorded Confirmed Last Taken Type apixaban [Eliquis] 5 mg PO BID 11/12/21 11/12/21 11/12/21 08:30 History aspirin [Aspir-81] 81 mg PO QPM 11/12/21 11/12/21 11/11/21 History atorvastatin 40 mg PO BEDTIME 11/12/21 11/12/21 11/11/21 History fluticasone propionate 1 spray INTRANASAL BID 11/12/21 11/12/21 Unknown History furosemide 80 mg PO BID 11/12/21 11/12/21 11/12/21 13:30 History ipratropium bromide [Atrovent HFA] 2 puff INHALATION QID PRN 11/12/21 11/12/21 Unknown History losartan 25 mg PO DAILY@12 11/12/21 11/12/21 11/12/21 History magnesium 500 mg PO QPM 11/12/21 11/12/21 11/11/21 History metolazone See Rx Instructions .ROUTE .COMPLEX 11/12/21 11/12/21 11/07/21 History potassium chloride 20 meq PO BID 11/12/21 11/12/21 11/12/21 13:30 History spironolactone 25 mg PO DAILY@12 11/12/21 11/12/21 11/12/21 History Allergies Allergy/AdvReac Type Severity Reaction Status Date / Time No Known Allergies Allergy Verified 11/12/21 17:47 Current Medications Generic Name Dose Route Start Last Admin Trade Name Freq PRN Reason Stop Dose Admin Furosemide 80 mg 11/14/21 09:00 11/14/21 08:32 Furosemide 40 Mg Tablet PO 80 mg BID ESME Administration Lanolin 1 applic 11/13/21 17:30 11/13/21 17:39 Lanolin Oint 7 Gm TOPICAL 1 applic PRN PRN Administration DRYNESS Pantoprazole Sodium 40 mg 11/12/21 20:45 11/14/21 08:32 Pantoprazole 40 Mg Sdv IVP 40 mg Q12H ESME Administration Potassium Chloride 20 meq 11/14/21 09:00 11/14/21 08:32 Potassium Chloride Er 20 Meq Tablet PO 20 meq BID ESME Administration Zolpidem Tartrate 5 mg 11/13/21 23:36 11/14/21 01:02 Zolpidem 5 Mg Tablet PO 5 mg BEDTIME PRN Administration SLEEP PFSH Acute PFSH: Medical History Atrial fibrillation CAD (coronary artery disease) Carotid stenosis CVA (cerebral vascular accident) HTN (hypertension) Hypercholesteremia Surgical History H/O carotid endarterectomy S/P CABG (coronary artery bypass graft) 1977 and 1992 Social History Smoking and tobacco status: never smoked Alcohol intake: current Alcohol intake frequency: holidays/special occasions only Vitals/I&O/Wt Last Vital Signs Temp 98.0 F 11/13/21 15:17 Pulse 67 11/14/21 10:00 Resp 15 11/14/21 10:00 BP 115/56 11/14/21 10:00 Pulse Ox 96 11/14/21 10:00 11/13/21 11/14/21 11/14/21 22:59 06:59 14:59 Intake Total 350 / 1150 480 / 480 Output Total 1999 1500 / 3500 Balance -1650 / -850 -1500 / -2350 480 / 480 Weight last 48 hrs Weight 251 lb Weight 241 lb Weight 250 lb Physical Exam Narrative: EXAM NARRATIVE: On examination he appeared in no distress. Vital signs as documented. Skin warm and dry and without overt rashes. Neck without JVD. Lungs clear. Heart exam notable for regular rhythm, normal sounds and absence of murmurs, rubs or gallops. Abdomen unremarkable and without evidence of organomegaly, masses, or abdominal aortic enlargement. Urinary Catheter Management^: Mo: Cath Placed During This Visit: yes Urinary Catheter Date of Insertion: 11/12/21 A&P Assessment and plan (1) Symptomatic anemia: This is likely related to hematochezia due to his anticoagulant therapy. The possibilities abound, with the most common reason being a diverticular bleed. 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 We will plan on upper and lower endoscopy in the morning. His primary team will continue to monitor his hemoglobin and keep him on proton pump inhibitor therapy. It should be noted he was on oral proton pump inhibitor therapy prior to admission. Status: Acute (2) Anticoagulated: Status: Acute (3) Gastrointestinal bleeding: Status: Acute Qualifiers: GI bleed type/associated pathology: unspecified gastrointestinal hemorrhage type Qualified Code(s): K92.2 - Gastrointestinal hemorrhage, unspecified (4) Personal history of colonic polyps: Status: Acute Coding Level of Care Code Acute Principal Cloud Architect for [facility] Diagnoses Symptomatic anemia D64.9 Anticoagulated Z79.01 Gastrointestinal bleeding K92.2 GI bleed type/associated pathology: unspecified gastrointestinal hemorrhage type Personal history of colonic polyps Z86.010 Comment Please forward this chart to Molly Gonzalez for billing.
[2021-11-14] MEDS: losartan 50 mg Tablet 25 MG PO (11:16)
[2021-11-14] MEDS: spironolactone 25 mg Tablet PO (11:16)
[2021-11-14] MEDS: sodium chloride 0.9% 1,000 ML 30 ML IV (13:42)
[2021-11-14 15:33] LABS: Hematocrit 25.7 % (42.0-52.0); Hemoglobin 7.8 g/dL (11.7-16.6)
--- NOTE | 2021-11-14 17:16 | PC.NURSE ---
Report called to VISHAL Trevino on [facility]. Patient transferred by bed to room 256-1, tolerated well. Family notified of transfer.
[2021-11-14] MEDS: magnesium citrate Btl 296 mL PO (18:12)
[2021-11-14] MEDS: bisacodyl 5 mg Tablet 15 MG PO (18:12)
[2021-11-14] MEDS: atorvastatin 40 mg Tablet PO (20:53)
[2021-11-15] VITALS (12 sets, daily range): BP systolic 97–150; BP diastolic 38–73; PULSE 57–93; RESP 16–18; TEMP 36.1–37.3; O2SAT 92–99
[2021-11-15 05:56] LABS: Basophils # 0.1 10^3/uL (0.0-0.1); Basophils % 0.4 %; Eosinophils # 0.7 10^3/uL (0.0-0.8); Eosinophils % 3.9 %; Hematocrit 26.4 % (42.0-52.0); Hemoglobin 7.9 g/dL (11.7-16.6); Lymphocytes % 16.5 %; Mean Corpuscular HGB Conc 29.9 g/dL (30.0-36.0); Mean Corpuscular Hemoglobin 23.2 pg (28.0-34.0); Mean Corpuscular Volume 77.4 fl (80-94); Mean Platelet Volume 10.3 fL (7.4-10.4); Monocytes % 16.4 %; Neutrophils # 11.24 10^3/uL (1.8-7.7); Neutrophils % 61.9 %; Nucleated Red Blood Cells # 0.9 /100WBC; Platelet Count 458 10^3/cmm (130-400); Red Blood Count 3.41 10^6/uL (4.1-5.3); Red Cell Distribution Width 25.9 % (12.1-15.1); White Blood Count 18.1 10^3/uL (4.0-10.0)
[2021-11-15 06:19] LABS: Alanine Aminotransferase 11 U/L (0-41); Albumin Level 3.4 g/dL (3.5-5.2); Alkaline Phosphatase 73 IU/L (40-130); Anion Gap 16.9 (5-19); Aspartate Amino Transferase 21 U/L (0-40); Blood Urea Nitrogen 21 mg/dL (8-23); Calcium 9.2 mg/dL (8.5-10.5); Carbon Dioxide 23 mmol/L (22-29); Chloride 103 mmol/L (98-107); Glucose 104 mg/dL (65-115); Osmolality Calculated 291 mOsm/kg (285-295); Potassium 3.9 mmol/L (3.5-5.1); Sodium 139 mmol/L (136-145); Total Bilirubin 1.1 mg/dL (0.15-1.2); Total Protein 6.4 g/dL (6.6-8.7)
--- NOTE | 2021-11-15 08:32 | P.ANESASSM_ITS ---
Pre-Anesthetic Assessment Pre-Anesthetic Assessment: Height/Weight: Height 1.85 m Weight 116.772 kg Temp Pulse Resp BP Pulse Ox 98.8 F 57 L 18 150/73 92 11/15/21 04:00 11/15/21 07:34 11/15/21 04:00 11/15/21 04:00 11/15/21 04:00 Preop Diagnosis: Hematochezia Proposed Procedure: Operation Date: 11/15/21 07:30 Proposed Procedures p EGD(Not Applicable) - Chava Aragon MD s Colonoscopy(Not Applicable) - Chava Aragon MD Social: Social History: No alcohol and No tobacco Exam: Pre-Anes Outpt Exam: alert, oriented x 3, clear to auscultation bilaterally and regular rate & rhythm Airway: Submandibular: WNL Cervical ROM: WNL MP: 2 Dentition: False History/ROS: No significant history except as noted and No significant complai nts Pulmonary: Pulmonary: None reported CV/HEM: CV/HEM: Afib, CAD, HTN and PVD : : None reported Hepatic: Hepatic: None reported GI: GI: GERD Metabolic: Metabolic: None reported Musc/skel: Musc/skel: OA/DJD Neuropsych: Neuropsych: CVA Anesthetic Plan: ASA status: 4 Anesthesia: Anesthesia Evaluation and MAC Risk of > 500 ml blood loss (7ml/kg in children): No Medications/Allergies Current Medications: Current Medications Generic Name Dose Route Start Last Admin Trade Name Freq PRN Reason Stop Dose Admin Atorvastatin Calci um 40 mg 11/14/21 21:00 11/14/21 20:53 Atorvastatin 40 Mg Tablet PO 40 mg BEDTIME ESME Administration Furosemide 80 mg 11/14/21 09:00 11/14/21 18:11 Furosemide 40 Mg Tablet PO 80 mg BID ESME Administration Sodium Chloride 1,000 mls @ 30 ml s/hr 11/14/21 11:30 11/14/21 13:42 Sodium Chloride 0.9% IV 11/15/21 11:29 30 mls/hr .Q24H ONE Administration Lanolin 1 applic 11/13/21 17:30 11/13/21 17:39 Lanolin Oint 7 G m TOPICAL 1 applic PRN PRN Administration DRYNESS Losartan Potassium 25 mg 11/14/21 12:00 11/14/21 11:16 Losartan 50 Mg T ablet PO 25 mg DAILY@12 ESME Administration Pantoprazole Sodiu m 40 mg 11/12/21 20:45 11/14/21 21:45 Pantoprazole 40 Mg Sdv IVP 40 mg Q12H ESME Administration Potassium Chloride 20 meq 11/14/21 09:00 11/14/21 18:12 Potassium Chlori de Er 20 Meq Table t PO 20 meq BID ESME Administration Spironolactone 25 mg 11/14/21 12:00 11/14/21 11:16 Spironolactone 2 5 Mg Tablet PO 25 mg DAILY@12 ESME Administration Zolpidem Tartrate 5 mg 11/13/21 23:36 11/14/21 23:57 Zolpidem 5 Mg Ta blet PO 5 mg BEDTIME PRN Administration SLEEP PFSH Anesthesia PFSH: Medical History Atrial fibrillation CAD (coronary artery disease) Carotid stenosis CVA (cerebral vascular accident) HTN (hypertension) Hypercholesteremia Surgical History H/O carotid endarterectomy S/P CABG (coronary artery bypass graft) 1977 and 1992 Social History Smoking and tobacco status: never smoked Alcohol intake: current Alcohol intake frequency: holidays/special occasions only Data Anesthesia CBC & Chem 7: 11/15/21 04:24 11/15/21 04:24 Other Labs: Laboratory Results - last 48 hr 11/12/21 11/13/21 11/14/21 16:50 17:28 04:25 WBC 17.0 H RBC 3.33 L Hgb 8.5 L D 7.7 L Hct 27.3 L D 25.3 L MCV 76.0 L D MCH 23.1 L D MCHC 30.4 D RDW 24.4 H Plt Count 453 H MPV 10.9 H Neut % (Auto) 62.2 Lymph % (Auto) 14.9 [place] % (Auto) 18.6 Eos % (Auto) 2.1 Baso % (Auto) 0.6 Neut # (Auto) 10.57 H Lymph # (Auto) 2.5 [place] # (Auto) 3.2 H Eos # (Auto) 0.4 Baso # (Auto) 0.1 Nucleated RBC % (auto) 9.4 Nucleated RBCs # 1.6 Sodium Potassium Chloride Carbon Dioxide Anion Gap BUN Creatinine GFR Calculation Glucose Calculated Osmolality Calcium Total Bilirubin AST ALT Alkaline Phosphatase Total Protein Albumin Globulin Blood Type A Negative Rho(D) Type Negative Antibody Screen Positive Antibody Identification Anti-Fya Crossmatch See Detail 11/14/21 11/14/21 11/15/21 04:25 15:24 04:24 WBC 18.1 H RBC 3.41 L Hgb 7.8 L 7.9 L Hct 25.7 L 26.4 L MCV 77.4 L MCH 23.2 L MCHC 29.9 L RDW 25.9 H Plt Count 458 H MPV 10.3 Neut % (Auto) 61.9 Lymph % (Auto) 16.5 [place] % (Auto) 16.4 Eos % (Auto) 3.9 Baso % (Auto) 0.4 Neut # (Auto) 11.24 H Lymph # (Auto) 3.0 [place] # (Auto) 3.0 H Eos # (Auto) 0.7 Baso # (Auto) 0.1 Nucleated RBC % (auto) 5.0 Nucleated RBCs # 0.9 Sodium 137 Potassium 4.0 Chloride 102 Carbon Dioxide 25 Anion Gap 14.0 BUN 30 H Creatinine 1.1 GFR Calculation Not Reportable Glucose 109 Calculated Osmolality 291 Calcium 8.6 Total Bilirubin 2.1 H AST 20 ALT 12 Alkaline Phosphatase 71 Total Protein 6.2 L Albumin 3.5 Globulin 2.7 Blood Type Rho(D) Type Antibody Screen Antibody Identification Crossmatch 11/15/21 04:24 WBC RBC Hgb Hct MCV MCH MCHC RDW Plt Count MPV Neut % (Auto) Lymph % (Auto) [place] % (Auto) Eos % (Auto) Baso % (Auto) Neut # (Auto) Lymph # (Auto) [place] # (Auto) Eos # (Auto) Baso # (Auto) Nucleated RBC % (auto) Nucleated RBCs # Sodium 139 Potassium 3.9 Chloride 103 Carbon Dioxide 23 Anion Gap 16.9 BUN 21 Creatinine 1.1 GFR Calculation Not Reportable Glucose 104 Calculated Osmolality 291 Calcium 9.2 Total Bilirubin 1.1 AST 21 ALT 11 Alkaline Phosphatase 73 Total Protein 6.4 L Albumin 3.4 L Globulin 3.0 Blood Type Rho(D) Type Antibody Screen Antibody Identification Crossmatch Cardiac Studies: Echocardiogram 05/20/21
[2021-11-15] MEDS: sodium chloride 0.9% 1,000 ML 30 ML IV (08:33)
--- NOTE | 2021-11-15 09:22 | PC.NURSE ---
2ML of epi mixure was injection in the rectum, cautery used
--- NOTE | 2021-11-15 09:40 | PC.NURSE ---
abdomen soft, round with active bowel sounds. passing flatus.
--- NOTE | 2021-11-15 11:55 | PM.PN ---
Subjective Subjective: Interval history: Mikal reports he is doing okay. He is eager to get some food. He underwent endoscopy earlier today. Medications: Reviewed: Yes Vitals/I&O/Wt Last Vital Signs Temp 97 F L 11/15/21 09:36 Pulse 88 11/15/21 09:36 Resp 18 11/15/21 09:36 BP 98/54 11/15/21 09:36 Pulse Ox 97 11/15/21 09:36 11/14/21 11/15/21 11/15/21 22:59 06:59 14:59 Intake Total 0 / 960 400 / 400 Output Total 0 / 0 400 / 400 800 / 800 Balance 0 / 960 -400 / 560 -400 / -400 Weight last 48 hrs Weight 116.772 kg Weight 113.852 kg Physical Exam Narrative: EXAM NARRATIVE: General exam no apparent distress Neck is supple Cardiovascular irregular, irregular with controlled rate Lungs clear Abdomen is soft. Bowel sounds are noted Extremities 1+ edema bilaterally Urinary Catheter Management^: Mo: Cath Placed During This Visit: yes Urinary Catheter Date of Insertion: 11/12/21 Data : 11/15/21 04:24 11/15/21 04:24 Micro: Microbiology 11/15/21 10:35 Blood Culture - Preliminary Blood SPECIMEN COLLECTED 11/15/21 10:30 Blood Culture - Preliminary Blood SPECIMEN COLLECTED A&P Assessment and plan (1) Gastrointestinal bleeding: Presented with bright red blood per rectum. Received some FFP Ultimately was transfused 5 units packed red blood cells Was on Eliquis. This is on hold along with antiplatelets It appears that he received factor Xa and activated in prothrombin complex as well GI consult appreciated. Had rectal angiectasia that was cauterized. Prep was otherwise poor. EGD reported to be normal. Change Protonix to p.o. once daily Hemoglobin stable, repeat CBC tomorrow Status: Acute Qualifiers: GI bleed type/associated pathology: unspecified gastrointestinal hemorrhage type Qualified Code(s): K92.2 - Gastrointestinal hemorrhage, unspecified (2) Anemia: Received 5 units of packed red blood cells secondary to severe acute GI blood loss Stabilized Status: Acute (3) Atrial fibrillation: Rhythm appears controlled currently. Anticoagulation discontinued currently secondary to bleeding Status: Acute (4) Hyponatremia: Resolved Status: Acute (5) CVA (cerebral vascular accident): History of CVA in the past. I informed the patient that his CVA risk is higher being off anticoagulant but we have no choice at this time. Status: Acute Qualifiers: CVA mechanism: unspecified Qualified Code(s): I63.9 - Cerebral infarction, unspecified (6) CAD (coronary artery disease): Hold any antiplatelets currently. This is secondary to recent active bleeding. Last echo April demonstrated EF 50 to 55%. It appears he is being treated for chronic systolic heart failure and this currently appears compensated. Received Lasix following transfusion. Initiate many of his home medications today. Status: Acute (7) Carotid stenosis: Status: Acute (8) HTN (hypertension): Status: Acute (9) S/P CABG (coronary artery bypass graft): Status: Acute Additional A&P Information Increasing white blood cell count. Zosyn added this morning. Continue to monitor. History of DVT, March right lower extremity Currently a full code SCDs for DVT prophylaxis Attestations Medical Necessity Statement*: Needs continued hospitalization for close follow-up secondary to anemia, GI bleed Coding Level of Care Code Acute Counter Control Operator for g Fwd Diagnoses Gastrointestinal bleeding K92.2 GI bleed type/associated pathology: unspecified gastrointestinal hemorrhage type Anemia D64.9 Atrial fibrillation I48.91 Hyponatremia E87.1 CVA (cerebral vascular accident) I63.9 CVA mechanism: unspecified CAD (coronary artery disease) I25.10 Carotid stenosis I65.29 HTN (hypertension) I10 S/P CABG (coronary artery bypass graft) Z95.1
[2021-11-15] MEDS: losartan 50 mg Tablet 25 MG PO (13:35)
[2021-11-15] MEDS: spironolactone 25 mg Tablet PO (13:35)
--- NOTE | 2021-11-15 14:41 | ANE.PACU2 ---
Inpatient post-anesthesia follow up: Airway intact: Yes Vital signs: Temperature 97.7 F Pulse Rate 76 Respiratory Rate 16 Blood Pressure 128/63 Pulse Oximetry 95 Oxygen Delivery Me thod Room Air Oxygen Flow Rate Fraction of Inspir ed Oxygen 3 Hydration adequate: Yes Nausea and vomiting: No Pain level: 1 Mental status: Baseline
--- NOTE | 2021-11-15 16:07 | PC.SOCIAL ---
Pg 2 IMM. Explained to pt Pg 2 IMM. No questions voiced. Provided pt a copy. Initialed, dated, & timed a copy & placed in chart.
[2021-11-15] MEDS: piperacillin-tazobactam 3.375 GM in sodium chloride 0.9% (plus) 50 ML IV (16:45)
[2021-11-15] MEDS: potassium chloride ER 20 mEq Tablet PO (18:05)
[2021-11-15] MEDS: FUROsemide 40 mg Tablet 80 MG PO (18:05)
[2021-11-15] MEDS: atorvastatin 40 mg Tablet PO (20:20)
[2021-11-16] VITALS: BP 146/86; PULSE 70; RESP 16; TEMP 36.8; O2SAT 95
[2021-11-16] MEDS: piperacillin-tazobactam 3.375 GM in sodium chloride 0.9% (plus) 50 ML IV ×2 (00:11→08:33)
[2021-11-16 05:34] VITALS: BP 183/96; PULSE 70; RESP 16; TEMP 36.8; O2SAT 95
[2021-11-16 06:18] LABS: Basophils # 0.1 10^3/uL (0.0-0.1); Basophils % 0.4 %; Eosinophils # 0.8 10^3/uL (0.0-0.8); Eosinophils % 4.7 %; Hematocrit 27.1 % (42.0-52.0); Hemoglobin 8.1 g/dL (11.7-16.6); Lymphocytes # 2.5 10^3/uL (0.8-4.8); Lymphocytes % 15.3 %; Mean Corpuscular HGB Conc 29.9 g/dL (30.0-36.0); Mean Corpuscular Hemoglobin 23.7 pg (28.0-34.0); Mean Corpuscular Volume 79.2 fl (80-94); Mean Platelet Volume 10.8 fL (7.4-10.4); Monocytes # 2.4 10^3/uL (0.2-0.9); Monocytes % 14.7 %; Neutrophils % 64.2 %; Nucleated Red Blood Cells # 0.4 /100WBC; Nucleated Red Blood Cells % 2.6 %; Platelet Count 472 10^3/cmm (130-400); Red Blood Count 3.42 10^6/uL (4.1-5.3); Red Cell Distribution Width 27.1 % (12.1-15.1); White Blood Count 16.1 10^3/uL (4.0-10.0)
[2021-11-16 06:40] LABS: Blood Urea Nitrogen 20 mg/dL (8-23); Calcium 8.3 mg/dL (8.5-10.5); Carbon Dioxide 25 mmol/L (22-29); Chloride 98 mmol/L (98-107); Glucose 114 mg/dL (65-115); Osmolality Calculated 279 mOsm/kg (285-295); Sodium 133 mmol/L (136-145)
[2021-11-16 08:00] VITALS: BP 175/75; PULSE 78; RESP 18; TEMP 36.7; O2SAT 97
[2021-11-16] MEDS: FUROsemide 40 mg Tablet 80 MG PO (08:33)
[2021-11-16] MEDS: potassium chloride ER 20 mEq Tablet PO (08:34)
--- NOTE | 2021-11-16 11:11 | P.DS_ITS ---
Discharge Providers Date of Admission: 11/12/21 20:40 Date of Discharge: November 16, 2021 Attending Provider at Admission: Magno Mac MD Attending Provider at Discharge: Martin Hall MD Primary Care Provider: NAEL Candelario Diagnoses at Discharge Discharge Diagnosis (1) Gastrointestinal bleeding: Status: Acute Qualifiers: GI bleed type/associated pathology: unspecified gastrointestinal hemorrhage type Qualified Code(s): K92.2 - Gastrointestinal hemorrhage, unspecified (2) Anemia: Status: Acute (3) Atrial fibrillation: Status: Acute (4) Hyponatremia: Status: Acute (5) CVA (cerebral vascular accident): Status: Acute Qualifiers: CVA mechanism: unspecified Qualified Code(s): I63.9 - Cerebral infarction, unspecified (6) CAD (coronary artery disease): Status: Acute (7) Carotid stenosis: Status: Acute (8) HTN (hypertension): Status: Acute (9) S/P CABG (coronary artery bypass graft): Status: Acute Permanent problem details: 1977 and 1992 Reason for Visit Reason for Visit: GI BLEED Hospital Course Hospital Course Mikal is an 86-year-old white male who presented to the hospital with bright red blood per rectum. Hemoglobin was slightly less than 4. He received prothrombin complex, FFP, 5 units of packed red blood cells. Hemoglobin increased appropriately with this and he had no evidence of recurrent bleeding in the hospital. GI consult was obtained and he underwent EGD and colonoscopy. EGD was normal. Colonoscopy showed poor preparation, some bleeding amount entrance of the rectum at an angiectasia. This was fulgurated. He was monitored until the next day, November 16 and had no recurrent bleeding. Hemoglobin was stable at 8.1. White blood cell count did go up during his hospital stay, and secondary to his ongoing GI bleeding was started on Zosyn. White count was decreasing at time of discharge to 16 and although no evidence of pneumonia or UTI it was thought with his GI bleeding, leukocytosis and 5 more days of Augmentin could be completed. Consideration could be made to restarting his Eliquis which was held on discharge, and 7 days if he does not bleed. Certainly a lower dose would be most cautious at 2.5 mg twice daily. He may resume his low-dose aspirin 3 days after discharge. Physical Exam Narrative: EXAM NARRATIVE: General exam no distress Neck is supple Cardiovascular regular rate and rhythm Lungs clear Abdomen is soft Extremities no cyanosis clubbing or edema Urinary Catheter Management: Mo: Cath Placed During This Visit: yes Urinary Catheter Date of Insertion: 11/12/21 Discharge Data Studies Completed and Pending Completed Studies During Hospitalization Category Date Time Status CT abdomen pelvis w con* [id number] Urgent Cat Scan 11/12/21 17:43 Completed XR chest 1V portable [id number] Routine Exams 11/14/21 07:26 Completed Pending at discharge Category Date Time Status Blood Culture Stat Lab 11/15/21 10:35 Results Radiology Impressions Abdomen/Pelvis CT 11/12/21 17:43 IMPRESSION: 1. Negative for active gastrointestinal bleeding. 2. Negative for acute abdominopelvic pathology. COMMENTS: Consistent with the [employer] [employer]'s Incidental Findings Committee white paper (J Am Jigna Radiol 2018): Any incidental renal lesion less than 1 cm or classified as too small to characterize, or any incidental cystic renal lesion characterized as simple-appearing, is likely benign. No follow-up imaging is recommended for these lesions per consensus recommendations based on imaging criteria. Chest X-Ray 11/14/21 07:26 IMPRESSION: No acute findings. Laboratory Results WBC 16.1 10^3/uL (4.0-10.0) H 11/16/21 04:45 RBC 3.42 10^6/uL (4.1-5.3) L 11/16/21 04:45 Hgb 8.1 g/dL (11.7-16.6) L 11/16/21 04:45 Hct 27.1 % (42.0-52.0) L 11/16/21 04:45 MCV 79.2 fl (80-94) L 11/16/21 04:45 MCH 23.7 pg (28.0-34.0) L 11/16/21 04:45 MCHC 29.9 g/dL (30.0-36.0) L 11/16/21 04:45 RDW 27.1 % (12.1-15.1) H 11/16/21 04:45 Plt Count 472 10^3/cmm (130-400) H 11/16/21 04:45 MPV 10.8 fL (7.4-10.4) H 11/16/21 04:45 Neut % (Auto) 64.2 % 11/16/21 04:45 Lymph % (Auto) 15.3 % 11/16/21 04:45 [place] % (Auto) 14.7 % 11/16/21 04:45 Eos % (Auto) 4.7 % 11/16/21 04:45 Baso % (Auto) 0.4 % 11/16/21 04:45 Neut # (Auto) 10.30 10^3/uL (1.8-7.7) H 11/16/21 04:45 Lymph # (Auto) 2.5 10^3/uL (0.8-4.8) 11/16/21 04:45 [place] # (Auto) 2.4 10^3/uL (0.2-0.9) H 11/16/21 04:45 Eos # (Auto) 0.8 10^3/uL (0.0-0.8) 11/16/21 04:45 Baso # (Auto) 0.1 10^3/uL (0.0-0.1) 11/16/21 04:45 Nucleated RBC % (auto) 2.6 % 11/16/21 04:45 Nucleated RBCs # 0.4 /100WBC 11/16/21 04:45 PT 19.60 SECONDS (12.1-14.9) H 11/12/21 16:50 INR 1.62 (0.8-1.2) H 11/12/21 16:50 Sodium 133 mmol/L (136-145) L 11/16/21 04:45 Potassium 4.0 mmol/L (3.5-5.1) 11/16/21 04:45 Chloride 98 mmol/L (98-107) 11/16/21 04:45 Carbon Dioxide 25 mmol/L (22-29) 11/16/21 04:45 Anion Gap 14.0 (5-19) 11/16/21 04:45 BUN 20 mg/dL (8-23) 11/16/21 04:45 Creatinine 1.2 mg/dL (0.7-1.2) 11/16/21 04:45 GFR Calculation Not Reportable 11/16/21 04:45 Glucose 114 mg/dL (65-115) 11/16/21 04:45 Calculated Osmolality 279 mOsm/kg (285-295) L 11/16/21 04:45 Calcium 8.3 mg/dL (8.5-10.5) L 11/16/21 04:45 Magnesium 2.5 mg/dL (1.7-2.3) H 11/13/21 03:02 Total Bilirubin 1.1 mg/dL (0.15-1.2) 11/15/21 04:24 AST 21 U/L (0-40) 11/15/21 04:24 ALT 11 U/L (0-41) 11/15/21 04:24 Alkaline Phosphatase 73 IU/L (40-130) 11/15/21 04:24 Total Protein 6.4 g/dL (6.6-8.7) L 11/15/21 04:24 Albumin 3.4 g/dL (3.5-5.2) L 11/15/21 04:24 Globulin 3.0 g/dL (1.3-4.6) 11/15/21 04:24 Urine Color Yellow (Yellow) 11/12/21 17:00 Urine Appearance Clear (CLEAR) 11/12/21 17:00 Urine pH 7 (5-7) 11/12/21 17:00 Ur Specific [place] 1.005 (1.005-1.030) 11/12/21 17:00 Urine Protein Neg (Negative) 11/12/21 17:00 Urine Glucose (UA) Norm (Normal) 11/12/21 17:00 Urine Ketones Negative (Negative) 11/12/21 17:00 Urine Blood Neg (Negative) 11/12/21 17:00 Urine Nitrate Negative (Negative) 11/12/21 17:00 Urine Bilirubin Neg (Negative) 11/12/21 17:00 Urine Urobilinogen Norm mg/dL (Negative) 11/12/21 17:00 Ur Leukocyte Esterase Negative (Negative) 11/12/21 17:00 Blood Type A Negative 11/12/21 16:50 Rho(D) Type Negative 11/12/21 16:50 Antibody Screen Positive 11/12/21 16:50 Antibody Identification Anti-Fya 11/12/21 16:50 Crossmatch See Detail 11/12/21 16:50 Vitals Last Vital Signs Temp 98.1 F 11/16/21 08:00 Pulse 78 11/16/21 08:00 Resp 18 11/16/21 08:00 BP 175/75 11/16/21 08:00 Pulse Ox 97 11/16/21 08:00 Discharge Plan Discharge Patient Disposition: Home Condition: Stable Prescriptions: New amoxicillin-pot clavulanate [Augmentin] 875-125 mg tablet 1 tab PO BID Qty: 10 0RF Continued metolazone 5 mg tablet See Rx Instructions .ROUTE .COMPLEX 0RF Rx Instructions: TAKE DIRECTED ON SAT,SUN AND MON Aspir-81 81 mg Tablet,Delayed Release (Dr/Ec) 81 mg PO QPM 0RF spironolactone 25 mg tablet 25 mg PO DAILY@12 0RF furosemide 80 mg tablet 80 mg PO BID 0RF magnesium 250 mg Tablet 500 mg PO QPM 0RF fluticasone propionate 50 mcg/actuation spray,suspension 1 spray INTRANASAL BID 0RF Atrovent HFA 17 mcg/actuation HFA aerosol inhaler 2 puff INHALATION QID PRN (Reason: Shortness Of Breath) 0RF losartan 50 mg tablet 25 mg PO DAILY@12 0RF atorvastatin 40 mg tablet 40 mg PO BEDTIME 0RF potassium chloride 20 mEq tablet extended release 20 meq PO BID 0RF Discontinued Eliquis 5 mg tablet 5 mg PO BID 0RF Discharge Orders: Discharge Order (Routine); Ordered 11/16/21 Ordered By: Martin Hall Referrals: [facility] ([facility]) [Outside] Jose Welch FNP [Primary Care Provider] - 4-7 days (CBC on follow-up After 1 week could consider initiation of Eliquis, 2.5 mg twice daily if patient is not bleeding.) Discharge Diet: Cardiac Discharge Activity: Increase activity as tolerated Patient Instructions: GI Discharge Instructions, Opioid Safety Activity Restrictions/Additional Instructions: Take all medicine as prescribed Follow-up with your primary care provider in 3 to 4 days CBC, BMP on follow-up Do not take Eliquis on discharge until directed by your primary care provider. Do not resume aspirin until 3 days after discharge. Discharge Attestations Time Spent in Discharge Care*: greater than 30 min Quality Metrics Clinical Quality Measures [ No reported AMI, CVA or VTE this stay] Coding Level of Care Code Acute Chg FW DC note Diagnoses Gastrointestinal bleeding K92.2 GI bleed type/associated pathology: unspecified gastrointestinal hemorrhage type Anemia D64.9 Atrial fibrillation I48.91 Hyponatremia E87.1 CVA (cerebral vascular accident) I63.9 CVA mechanism: unspecified CAD (coronary artery disease) I25.10 Carotid stenosis I65.29 HTN (hypertension) I10 S/P CABG (coronary artery bypass graft) Z95.1
[2021-11-16 11:53] VITALS: BP 142/80
[2021-11-16] MEDS: losartan 50 mg Tablet 25 MG PO (11:53)
[2021-11-16] MEDS: spironolactone 25 mg Tablet PO (11:53)
[2021-11-16 12:00] VITALS: BP 142/80; PULSE 71; RESP 18; TEMP 36.7; O2SAT 96
--- NOTE | 2021-11-16 14:03 | PC.NURSE ---
Discharge paperwork and follow up appointments discussed with patient. Verbalized understanding
[2021-11-16 14:32] VITALS: BP 142/80; PULSE 71; RESP 18; TEMP 36.7; O2SAT 96
== END 2021-11-16 14:33 | disposition home health service (06) | DRG 378 ==
LOC: ER 21:15 → ICU 23:35 → MEDSURG 11-14 17:15
PROVIDERS: Internal Medicine; Admitting Provider Internal Medicine; Emergency Provider Family Medicine; PCP Nurse Practitioner; Visit Provider Internal Medicine
PROC: 0DJ08ZZ Inspection of Upper Intestinal Tract, Via Natural or Artificial Opening Endoscopic (ICD-10-PCS; CPT 43235; principal; 2021-11-15 07:30)
PROC: 0DJD8ZZ Inspection of Lower Intestinal Tract, Via Natural or Artificial Opening Endoscopic (ICD-10-PCS; CPT 45378; 2021-11-15 07:30)
DX: K92.2 Gastrointestinal hemorrhage, unspecified (principal); E87.1 Hypo-osmolality and hyponatremia; I99.8 Other disorder of circulatory system; D64.9 Anemia, unspecified; I48.91 Unspecified atrial fibrillation; I25.10 Atherosclerotic heart disease of native coronary artery without angina pectoris; Z95.5 Presence of coronary angioplasty implant and graft; Z86.73 Personal history of transient ischemic attack (TIA), and cerebral infarction without residual deficits; I10 Essential (primary) hypertension; E78.00 Pure hypercholesterolemia, unspecified; E78.5 Hyperlipidemia, unspecified; E66.9 Obesity, unspecified; Z68.34 Body mass index [BMI] 34.0-34.9, adult; F03.90 Unspecified dementia, unspecified severity, without behavioral disturbance, psychotic disturbance, mood disturbance, and anxiety; Z86.718 Personal history of other venous thrombosis and embolism; Z79.82 Long term (current) use of aspirin; K57.30 Diverticulosis of large intestine without perforation or abscess without bleeding; T45.515A Adverse effect of anticoagulants, initial encounter
CPT/HCPCS: 36415; 36430; 43235; 45378; 45381; 45382; 51702; 71045; 74177; 80048; 80053; 81003; 83735; 85014; 85018; 85025; 85610; 86850; 86870; 86900; 86902; 86920; 86927; 87040; 93005; 96365; 96366; 96367; 96375; 99291; C9113; J0171; J1940; J2543; J2704; J3490; J7030; J7169; P9016; P9017; Q9967

== ENCOUNTER 2021-12-03 19:18 | Observation (INO) | payer MEDICARE, MEDICAID, SELFPAY ==
[2021-12-03 19:20] VITALS: BP 135/48; PULSE 61; RESP 18; TEMP 37.1; O2SAT 95; BMI 34.2
--- NOTE | 2021-12-03 19:24 | ED_ITS ---
HPI - GI Bleed General: Stated complaint: gi bleed Time Seen by Provider: 12/03/21 19:24 [facility] ED PFSH: Medical History Atrial fibrillation CAD (coronary artery disease) Carotid stenosis CVA (cerebral vascular accident) HTN (hypertension) Hypercholesteremia Hyponatremia Surgical History H/O carotid endarterectomy S/P CABG (coronary artery bypass graft) 1977 and 1992 Social History Smoking and tobacco status: never smoked Alcohol intake: current Alcohol intake frequency: holidays/special occasions only Discharge Plan Discharge Condition: Stable Prescriptions: No Action metolazone 5 mg tablet See Rx Instructions .ROUTE .COMPLEX 0RF Rx Instructions: TAKE DIRECTED ON SAT,SUN AND MON aspirin 81 mg Tablet,Delayed Release (Dr/Ec) 81 mg PO QPM 0RF spironolactone 25 mg tablet 25 mg PO DAILY@12 0RF furosemide 80 mg tablet 80 mg PO BID 0RF magnesium 250 mg Tablet 500 mg PO QPM 0RF fluticasone propionate 50 mcg/actuation spray,suspension 1 spray INTRANASAL BID 0RF Atrovent HFA 17 mcg/actuation HFA aerosol inhaler 2 puff INHALATION QID PRN (Reason: Shortness Of Breath) 0RF losartan 50 mg tablet 25 mg PO DAILY@12 0RF atorvastatin 40 mg tablet 40 mg PO BEDTIME 0RF potassium chloride 20 mEq tablet extended release 20 meq PO BID 0RF Augmentin 875-125 mg tablet 1 tab PO BID Qty: 10 0RF Referrals: Jose Welch FNP [Primary Care Provider] - Coding Level of Care Code ED Staff Anesthesiologist for Alphonso [facility]
--- NOTE | 2021-12-03 19:39 | ECG_ITS ---
[facility] Test Date: 2021-12-03 Pat Name: Mikal Waller Department: Room: Gender: Male Handle Maker: : [id number] Requested By: Sammy Edwards Order Number: [id number] Reading MD: ADEEL BARAJAS Measurements Intervals [place] Rate: 73 P: NH: QRS: -3 QRSD: 113 T: 52 QT: 419 QTc: 463 Interpretive Statements ATRIAL FIBRILLATION WITH ABERRANT CONDUCTION OR VENTRICULAR PREMATURE COMPLEXES LOW QRS VOLTAGE IN PRECORDIAL LEADS [QRS DEFLECTION < 1.0 mV IN CHEST LEADS] PROBABLE ANTERIOR MYOCARDIAL INFARCTION , PROBABLY OLD [35 ms Q WAVE IN V3/V4] Compared to ECG 11/13/2021 00:48:15 Low QRS voltage now present ST (T wave) deviation no longer present Myocardial infarct finding still present Electronically Signed On 12-03-2021 22:54:23 LEAD BURNER HELPER by ADEEL BARAJAS [id number]
--- NOTE | 2021-12-03 19:39 | CTR_ITS ---
PROCEDURE INFORMATION: Exam: CT Abdomen And Pelvis With Contrast Exam date and time: 12/03/2021 7:39 PM Age: 86 years old Clinical indication: Other: Bleeding; Patient HX: C/O gi bleed; Additional info: Gi bleeding TECHNIQUE: Imaging protocol: Computed tomography of the abdomen and pelvis with contrast. Radiation optimization: All CT scans at this facility use at least one of these dose optimization techniques: automated exposure control; mA and/or kV adjustment per patient size (includes targeted exams where dose is matched to clinical indication); or iterative reconstruction. Contrast material: OMNI 300; Contrast volume: 95 ml; Contrast route: INTRAVENOUS (IV); COMPARISON: CT abdomen pelvis w con* [id number] 11/12/2021 6:03 PM RADIATION DOSE METRICS: Total DLP (mGy-cm): 1945.99 FINDINGS: Lungs: Mild atelectasis or scarring in the lung bases. Heart: Coronary artery calcifications. Diaphragm: Small hiatal hernia. Liver: Normal. No mass. Gallbladder and bile ducts: Normal. No calcified stones. No ductal dilation. Pancreas: Normal. No ductal dilation. Spleen: Splenectomy. Adrenal glands: Normal. No mass. Kidneys and ureters: Stable chronic perinephric stranding. Hypodensities in both kidneys are too small to characterize but are most likely cysts. No calculi or hydronephrosis. Stomach and bowel: The stomach is normal. Diverticulosis of the distal colon. No diverticulitis. The small bowel is unremarkable. No wall thickening or obstruction. Appendix: The appendix is visualized and is normal. Intraperitoneal space: Unremarkable. No free air. No significant fluid collection. 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 Calcified plaque with mild to moderate stenosis in the proximal renal arteries. Lymph nodes: Unremarkable. No enlarged lymph nodes. Urinary bladder: Distended urinary bladder. No wall thickening. Reproductive: Brachytherapy seeds adjacent to the prostate. Bones/joints: Median sternotomy changes. Degenerative spine. No acute fracture. Soft tissues: Fat containing ventral hernia just to inferior to the xiphoid process. CT/CT abdomen pelvis w con* [id number] IMPRESSION: 1. No acute abnormality identified in the abdomen or pelvis. 2. No active GI hemorrhage identified. 3. Diverticulosis of the distal colon without diverticulitis. COMMENTS: Consistent with the [employer]'s Incidental Findings Committee white paper (J Am Jigna Radiol 2018): Any incidental renal lesion less than 1 cm or classified as too small to characterize, or any incidental cystic renal lesion characterized as simple-appearing, is likely benign. No follow-up imaging is recommended for these lesions per consensus recommendations based on imaging criteria.
[2021-12-03] MEDS: sodium chloride 0.9% 1,000 ML 999 ML IV (19:40)
[2021-12-03 19:57] LABS: Add Urine Microscopic? NO; Charge for UA Resulting for Rev
[2021-12-03 20:19] LABS: Basophils % 0.5 %; Eosinophils # 0.4 10^3/uL (0.0-0.8); Eosinophils % 5.3 %; Hematocrit 29.7 % (42.0-52.0); Hemoglobin 8.7 g/dL (11.7-16.6); Lymphocytes # 2.6 10^3/uL (0.8-4.8); Lymphocytes % 31.8 %; Mean Corpuscular HGB Conc 29.3 g/dL (30.0-36.0); Mean Corpuscular Hemoglobin 22.7 pg (28.0-34.0); Mean Corpuscular Volume 77.5 fl (80-94); Mean Platelet Volume 10.6 fL (7.4-10.4); Monocytes # 1.5 10^3/uL (0.2-0.9); Monocytes % 17.5 %; Neutrophils % 44.5 %; Nucleated Red Blood Cells % 0.4 %; Platelet Count 453 10^3/cmm (130-400); Red Blood Count 3.83 10^6/uL (4.1-5.3); Red Cell Distribution Width 28.6 % (12.1-15.1); White Blood Count 8.3 10^3/uL (4.0-10.0)
[2021-12-03 20:25] LABS: Bilirubin Urine Neg (Negative); Blood Urine Neg (Negative); Glucose Urine UA Norm (Normal); Ketones Urine Negative (Negative); Leukocyte Esterase Urine Negative (Negative); Nitrate Urine Negative (Negative); Protein Urine Neg (Negative); Specific Gravity, Urine 1.005 (1.005-1.030); Urine Appearance Clear (CLEAR); Urine Color Yellow (Yellow); Urobilinogen Urine Neg (Negative); pH Urine 7 (5-7)
[2021-12-03 20:39] LABS: Lactate (Lactic Acid level) 1.4 mmol/L (0.5-2.2)
[2021-12-03 20:40] LABS: Alanine Aminotransferase 35 U/L (0-41); Alkaline Phosphatase 89 IU/L (40-130); Anion Gap 15.8 (5-19); Aspartate Amino Transferase 38 U/L (0-40); Blood Urea Nitrogen 33 mg/dL (8-23); Calcium 9.4 mg/dL (8.5-10.5); Carbon Dioxide 23 mmol/L (22-29); Chloride 98 mmol/L (98-107); Globulin 3.7 g/dL (1.3-4.6); Glucose 103 mg/dL (65-115); Osmolality Calculated 282 mOsm/kg (285-295); Potassium 4.8 mmol/L (3.5-5.1); Sodium 132 mmol/L (136-145); Total Bilirubin 0.3 mg/dL (0.15-1.2); Total Protein 7.7 g/dL (6.6-8.7)
[2021-12-03] MEDS: iohexol 300 mg/mL 100 mL Btl IV (21:04)
--- NOTE | 2021-12-03 21:28 | W.ED.GIBLEED ---
HPI - GI Bleed General: Chief complaint: ER Hold Stated complaint: gi bleed Time Seen by Provider: 12/03/21 19:24 History of Present Illness: 86-year-old gentleman with reported lower GI bleeding at home. Evidently he had some red blood per rectum at home. He denies any belly pain. Denies fever vomiting. He has a history of lower GI bleeding for which she was hospitalized a couple weeks ago, with a hemoglobin as low as four. He left the hospital with a hemoglobin of 8.1. Associated symptoms: Denies abdominal pain, fever(s), nausea or vomiting Review of Systems Const: Denies: fever(s) Card: Denies: chest pain Resp: Denies: dyspnea GI: Reports: hematochezia; Denies: abdominal pain, nausea, vomiting or rectal pain Psych: Reports: memory loss PFSH ED PFSH: Medical History Atrial fibrillation CAD (coronary artery disease) Carotid stenosis CVA (cerebral vascular accident) HTN (hypertension) Hypercholesteremia Hyponatremia Surgical History H/O carotid endarterectomy S/P CABG (coronary artery bypass graft) 1977 and 1992 Social History Smoking and tobacco status: never smoked Alcohol intake: current Alcohol intake frequency: holidays/special occasions only Physical Exam Const: GENERAL APPEARANCE: cooperative and frail appearing HENMT: COMMON NORMALS: normocephalic, atraumatic and Normal external nose present HEAD & SCALP: normocephalic and atraumatic FACE & SINUS: normal facial exam NOSE: Normal external nose present Eye: COMMON NORMALS: Equal, round and reactive pupils present and EOMs intact bilaterally PUPIL: Yes Equal, round and reactive pupils present EOM: Yes EOM abnormal Neck/C-Spine: GENERAL: Yes normal visual inspection Chest: COMMONS NORMALS: normal inspection of the chest Resp: COMMON NORMALS: normal respiratory effort, No retractions, No use of accessory muscles and clear to auscultation bilaterally AUSCULTATION: clear to auscultation bilaterally Cardio: COMMON NORMALS: regular rate and regular rhythm RATE: regular rate RHYTHM: regular rhythm GI: COMMON NORMALS: Normal to inspection, nondistended, normoactive bowel sounds present, Soft to palpation and non-tender PALPATION: Yes Soft to palpation Extremity: COMMON NORMALS: normal to inspection Neuro: SANDRA COMA SCALE: document GCS findings [place] coma scale eye opening: Spontaneous Sandra coma scale verbal response: Confused Sandra coma scale motor response: Obey commands Sandra coma scale total score: 14 Psych: COMMON NORMALS: cooperative Course Consultations: Consultation #1: alexa Vital Signs: Vital signs: Vital Signs Temperature 98.7 F 12/03/21 19:20 Pulse Rate 70 12/04/21 05:12 Respiratory Rate 18 12/04/21 05:12 Blood Pressure 131/61 12/04/21 05:12 Pulse Oximetry 95 12/04/21 05:12 MDM - GI Bleed Medical Decision Making 86-year-old male with evidence of lower GI bleeding. He had a prior episode 2 weeks ago, with his hemoglobin reaching 4-5 at the lowest. He was placed back on his Eliquis 2 days ago. He has had 3 doses family believes. His hemoglobin is stable at 8.7, but with his history of significant GI blood loss on anticoagulation, he will need to be observed for serial hemoglobins, and transfusion if needed. Lab Data : 12/04/21 03:05 12/04/21 03:05 Radiology Impressions Abdomen/Pelvis CT 12/03/21 19:39 IMPRESSION: 1. No acute abnormality identified in the abdomen or pelvis. 2. No active GI hemorrhage identified. 3. Diverticulosis of the distal colon without diverticulitis. COMMENTS: Consistent with the [employer]'s Incidental Findings Committee white paper (J Am Jigna Radiol 2018): Any incidental renal lesion less than 1 cm or classified as too small to characterize, or any incidental cystic renal lesion characterized as simple-appearing, is likely benign. No follow-up imaging is recommended for these lesions per consensus recommendations based on imaging criteria. Laboratory Results WBC 8.8 10^3/uL (4.0-10.0) 12/04/21 03:05 RBC 3.68 10^6/uL (4.1-5.3) L 12/04/21 03:05 Hgb 8.4 g/dL (11.7-16.6) L 12/04/21 03:05 Hct 28.5 % (42.0-52.0) L 12/04/21 03:05 MCV 77.4 fl (80-94) L 12/04/21 03:05 MCH 22.8 pg (28.0-34.0) L 12/04/21 03:05 MCHC 29.5 g/dL (30.0-36.0) L 12/04/21 03:05 RDW Not Reportable 12/04/21 03:05 Plt Count 417 10^3/cmm (130-400) H 12/04/21 03:05 MPV 9.9 fL (7.4-10.4) 12/04/21 03:05 Neut % (Auto) 41.9 % 12/04/21 03:05 Lymph % (Auto) 34.0 % 12/04/21 03:05 [place] % (Auto) 17.4 % 12/04/21 03:05 Eos % (Auto) 5.7 % 12/04/21 03:05 Baso % (Auto) 0.5 % 12/04/21 03:05 Neut # (Auto) 3.68 10^3/uL (1.8-7.7) 12/04/21 03:05 Lymph # (Auto) 3.0 10^3/uL (0.8-4.8) 12/04/21 03:05 [place] # (Auto) 1.5 10^3/uL (0.2-0.9) H 12/04/21 03:05 Eos # (Auto) 0.5 10^3/uL (0.0-0.8) 12/04/21 03:05 Baso # (Auto) 0.0 10^3/uL (0.0-0.1) 12/04/21 03:05 Nucleated RBC % (auto) 0.2 % 12/04/21 03:05 Nucleated RBCs # 0.0 /100WBC 12/04/21 03:05 PT 15.70 SECONDS (12.1-14.9) H 12/03/21 20:54 INR 1.22 (0.8-1.2) H 12/03/21 20:54 APTT 34.9 SECONDS (23.9-36.7) 12/03/21 20:54 Sodium 134 mmol/L (136-145) L 12/04/21 03:05 Potassium 4.2 mmol/L (3.5-5.1) 12/04/21 03:05 Chloride 100 mmol/L (98-107) 12/04/21 03:05 Carbon Dioxide 23 mmol/L (22-29) 12/04/21 03:05 Anion Gap 15.2 (5-19) 12/04/21 03:05 BUN 29 mg/dL (8-23) H 12/04/21 03:05 Creatinine 0.9 mg/dL (0.7-1.2) 12/04/21 03:05 GFR Calculation Not Reportable 12/04/21 03:05 Glucose 102 mg/dL (65-115) 12/04/21 03:05 Calculated Osmolality 284 mOsm/kg (285-295) L 12/04/21 03:05 Lactate 1.4 mmol/L (0.5-2.2) 12/03/21 20:11 Calcium 9.3 mg/dL (8.5-10.5) 12/04/21 03:05 Phosphorus 2.3 mg/dL (2.5-4.5) L 12/04/21 03:05 Magnesium 2.0 mg/dL (1.7-2.3) 12/04/21 03:05 Total Bilirubin 0.3 mg/dL (0.15-1.2) 12/04/21 03:05 AST 34 U/L (0-40) 12/04/21 03:05 ALT 28 U/L (0-41) 12/04/21 03:05 Alkaline Phosphatase 81 IU/L (40-130) 12/04/21 03:05 C-Reactive Protein 3.0 mg/L (0.0-4.9) 12/03/21 20:11 Total Protein 7.0 g/dL (6.6-8.7) 12/04/21 03:05 Albumin 3.6 g/dL (3.5-5.2) 12/04/21 03:05 Globulin 3.4 g/dL (1.3-4.6) 12/04/21 03:05 Urine Color Yellow (Yellow) 12/03/21 19:42 Urine Appearance Clear (CLEAR) 12/03/21 19:42 Urine pH 7 (5-7) 12/03/21 19:42 Ur Specific [place] 1.005 (1.005-1.030) 12/03/21 19:42 Urine Protein Neg (Negative) 12/03/21 19:42 Urine Glucose (UA) Norm (Normal) 12/03/21 19:42 Urine Ketones Negative (Negative) 12/03/21 19:42 Urine Blood Neg (Negative) 12/03/21 19:42 Urine Nitrate Negative (Negative) 12/03/21 19:42 Urine Bilirubin Neg (Negative) 12/03/21 19:42 Urine Urobilinogen Neg mg/dL (Negative) 12/03/21 19:42 Ur Leukocyte Esterase Negative (Negative) 12/03/21 19:42 Discharge Plan Discharge Patient Disposition: Placed in Observation Clinical Impression: Symptomatic anemia, Anticoagulated, Lower gastrointestinal hemorrhage Coding Level of Care Code ED Import And Export Clerk for Alphonso Rich Exam Comprehensive
[2021-12-03 21:47] LABS: INR 1.22 (0.8-1.2)
[2021-12-03 21:48] LABS: Partial Thromboplastin Time 34.9 SECONDS (23.9-36.7)
--- NOTE | 2021-12-03 23:06 | PM.HP ---
Providers/Chief Complaint Primary Care Provider: NAEL Candelario Chief Complaint: gi bleed History of Present Illness Mikal Waller is a 86 year old male with a past medical history of hypertension, CAD status post CABG, carotid artery stenosis status post carotid endarterectomy, dyslipidemia, obesity, ischemic left TRIAL PARALEGAL, atrial fibrillation off Eliquis, right lower extremity DVT history, recent hospitalization for GI bleed requiring 5 units PRBC, who presents [facility] due to concerns for bloody stools. Currently patient is alert to person, to place, not to time, he follows commands, but has short-term memory loss, cannot remember what he had for breakfast this morning. He is not exactly sure why serial hospital, he tells me he is feeling well, no nausea, vomiting, lightheadedness, dizziness, no chest pain, shortness of breath, he denies any bloody or black stools, but he tells me that his family brought him in because they were concerned that he was having recurrent GI bleed as he had some bright red blood per rectum. He denies any abdominal pain. Hemodynamics, hemoglobin 8.7, hemodynamics within normal limits, denies taking Eliquis at home, has no complaints Review of Systems Const: Denies: fever(s), fatigue or malaise Eyes: Denies: change in vision ENMT: Denies: nasal congestion Resp: Denies: dyspnea or wheezing GI: Denies: abdominal pain, nausea, vomiting, hematemesis, diarrhea, constipation, hematochezia or melena : Denies: flank pain, difficulty urinating, dysuria or urinary frequency Musc: Denies: neck pain or back pain Skin/Breast: Denies: rash Neuro: Denies: headache(s) or dizziness Medications/Allergies Home Medications Medication Instructions Recorded Confirmed Last Taken Type atorvastatin 40 mg tablet 40 mg PO BEDTIME 11/12/21 12/03/21 12/02/21 History fluticasone propionate 50 1 spray INTRANASAL BID PRN 11/12/21 12/03/21 Unknown History mcg/actuation nasal spray,suspension furosemide 80 mg tablet 80 mg PO BID 11/12/21 12/03/21 12/03/21 History ipratropium bromide 17 2 puff INHALATION QID PRN 11/12/21 12/03/21 Unknown History mcg/actuation HFA aerosol inhaler (Atrovent HFA) losartan 50 mg tablet 25 mg PO DAILY@12 11/12/21 12/03/21 12/03/21 History magnesium 250 mg tablet 500 mg PO QPM 11/12/21 12/03/21 12/02/21 History potassium chloride 20 mEq 20 meq PO BID 11/12/21 12/03/21 12/03/21 History tablet,extended release spironolactone 25 mg tablet 25 mg PO DAILY@12 11/12/21 12/03/21 12/03/21 History apixaban 5 mg tablet (Eliquis) 5 mg PO BID 12/03/21 12/03/21 12/03/21 History ascorbic acid (vitamin C) 500 mg 500 mg PO DAILY 12/03/21 12/03/21 12/03/21 History tablet (Vitamin C) ferrous sulfate 325 mg (65 mg 325 mg PO DAILY 12/03/21 12/03/21 12/03/21 History iron) tablet (iron) multivitamin 1 tab PO DAILY 12/03/21 12/03/21 12/03/21 History Allergies Allergy/AdvReac Type Severity Reaction Status Date / Time No Known Allergies Allergy Verified 12/03/21 19:35 PFSH Acute PFSH: Medical History Atrial fibrillation CAD (coronary artery disease) Carotid stenosis CVA (cerebral vascular accident) HTN (hypertension) Hypercholesteremia Hyponatremia Surgical History H/O carotid endarterectomy S/P CABG (coronary artery bypass graft) 1977 and 1992 Social History Smoking and tobacco status: never smoked Alcohol intake: current Alcohol intake frequency: holidays/special occasions only Vitals/I&O/Wt Last Vital Signs Temp 98.7 F 12/03/21 19:20 Pulse 61 12/03/21 19:20 Resp 18 12/03/21 19:20 BP 135/48 12/03/21 19:20 Pulse Ox 95 12/03/21 19:20 Weight last 48 hrs Weight 117.934 kg Physical Exam Const: COMMON NORMALS: no acute distress ORIENTATION/CONSCIOUSNESS: Yes awake, Yes oriented to person and Yes oriented to place; not oriented to time HENMT: COMMON NORMALS: normocephalic HEAD & SCALP: normocephalic Neck/C-Spine: COMMON NORMALS: no JVD Lymph: LYMPHATIC: no lymphadenopathy noted Resp: COMMON NORMALS: normal respiratory effort, No retractions, No use of accessory muscles and clear to auscultation bilaterally AUSCULTATION: clear to auscultation bilaterally Cardio: COMMON NORMALS: no JVD, regular rate, regular rhythm, S1 normal heart sound present and S2 normal heart sound present RATE: regular rate RHYTHM: regular rhythm HEART SOUNDS: S1 normal heart sound present and S2 normal heart sound present GI: COMMON NORMALS: Normal to inspection, nondistended, normoactive bowel sounds present, Soft to palpation, non-tender, No hepatosplenomegaly present, no masses and no bruits PALPATION: Yes Soft to palpation and Yes No hepatosplenomegaly present Extremity: COMMON NORMALS: capillary refill normal, no clubbing, cyanosis or edema, no calf tenderness and no pedal edema Neuro: COMMON NORMALS: patient oriented x3 Psych: COMMON NORMALS: mental status grossly normal Data : 12/03/21 20:11 12/03/21 20:11 A&P Assessment and plan (1) Lower gastrointestinal hemorrhage: Status: Acute (2) S/P CABG (coronary artery bypass graft): Status: Acute (3) HTN (hypertension): Status: Acute (4) CAD (coronary artery disease): Status: Acute (5) Atrial fibrillation: Status: Acute (6) CVA (cerebral vascular accident): Status: Acute Qualifiers: CVA mechanism: unspecified Qualified Code(s): I63.9 - Cerebral infarction, unspecified (7) Hypercholesteremia: Status: Acute (8) Carotid stenosis: Status: Acute Plan Lower GI bleed -Hemoglobin admission 8.7 -Hemodynamics within normal limits -On last admission required 5 units PRBC, factor Xa, prothrombin complex, colonoscopy, was not a good quality study, 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 -Denies taking Eliquis Plan -Admit to general medical floors -Clear liquid diet -Monitor for bloody or black stools -Protonix, Carafate -Monitor hemodynamics -Hemoglobin every 4 hours -We will consider discussing with general surgery based on hemoglobin trend, clinical progress -Full code -SCDs for DVT prophylaxis Acute encephalopathy, has some degree of confusion, and gets most questions appropriately, but does have short-term memory loss, possible underlying dementia, continue to monitor UA unremarkable for UTI, no leukocytosis History of atrial fibrillation, Eliquis on hold History of DVT, Eliquis on hold, does have right lower extremity swelling we will do ultrasound venous History of CVA Attestations Medical Necessity Statement*: Patient requires hospitalization, outpatient with observation, for concerns for lower GI bleed Coding Level of Care Code Acute Sequencing Machine Operator for Chg Fwd Diagnoses Lower gastrointestinal hemorrhage K92.2 S/P CABG (coronary artery bypass graft) Z95.1 HTN (hypertension) I10 CAD (coronary artery disease) I25.10 Atrial fibrillation I48.91 CVA (cerebral vascular accident) I63.9 CVA mechanism: unspecified Hypercholesteremia E78.00 Carotid stenosis I65.29
[2021-12-03 23:42] LABS: Hematocrit 28.7 % (42.0-52.0); Hemoglobin 8.4 g/dL (11.7-16.6)
--- NOTE | 2021-12-04 02:09 | USR_ITS ---
PROCEDURE INFORMATION: Exam: US Duplex Lower Extremity Veins, Bilateral Exam date and time: 12/04/2021 2:09 AM Age: 86 years old Clinical indication: Swelling (edema) of limb. Bilateral lower extremity. Left greater saphenous vein harvest. TECHNIQUE: Imaging protocol: Real-time Duplex ultrasound of the bilateral extremities with 2-D mclaughlin scale, color Doppler flow and spectral waveform analysis with image documentation. Complete exam focused on the bilateral lower extremity veins. COMPARISON: CT abdomen pelvis w con* [id number] 12/03/2021 9:05 PM FINDINGS: The common femoral, femoral, popliteal and posterior tibial veins are patent. There is appropriate compression and augmentation. Doppler interogation reveals venous blood [place]. US/[place] [id number] IMPRESSION: No evidence of deep venous thrombosis.
[2021-12-04] MEDS: pantoprazole 40 mg SDV IVP ×2 (02:44→15:24)
[2021-12-04] MEDS: sucralfate 1 gm/10 mL Oral Liq UDC PO ×2 (02:45→15:24)
[2021-12-04 03:11] LABS: Basophils % 0.5 %; Eosinophils # 0.5 10^3/uL (0.0-0.8); Eosinophils % 5.7 %; Hematocrit 28.5 % (42.0-52.0); Hemoglobin 8.4 g/dL (11.7-16.6); Mean Corpuscular HGB Conc 29.5 g/dL (30.0-36.0); Mean Corpuscular Hemoglobin 22.8 pg (28.0-34.0); Mean Corpuscular Volume 77.4 fl (80-94); Mean Platelet Volume 9.9 fL (7.4-10.4); Monocytes # 1.5 10^3/uL (0.2-0.9); Monocytes % 17.4 %; Neutrophils # 3.68 10^3/uL (1.8-7.7); Neutrophils % 41.9 %; Nucleated Red Blood Cells % 0.2 %; Platelet Count 417 10^3/cmm (130-400); Red Blood Count 3.68 10^6/uL (4.1-5.3); White Blood Count 8.8 10^3/uL (4.0-10.0)
[2021-12-04 03:29] LABS: Alanine Aminotransferase 28 U/L (0-41); Albumin Level 3.6 g/dL (3.5-5.2); Alkaline Phosphatase 81 IU/L (40-130); Anion Gap 15.2 (5-19); Aspartate Amino Transferase 34 U/L (0-40); Blood Urea Nitrogen 29 mg/dL (8-23); Calcium 9.3 mg/dL (8.5-10.5); Carbon Dioxide 23 mmol/L (22-29); Chloride 100 mmol/L (98-107); Globulin 3.4 g/dL (1.3-4.6); Glucose 102 mg/dL (65-115); Osmolality Calculated 284 mOsm/kg (285-295); Phosphorus 2.3 mg/dL (2.5-4.5); Potassium 4.2 mmol/L (3.5-5.1); Sodium 134 mmol/L (136-145); Total Bilirubin 0.3 mg/dL (0.15-1.2)
[2021-12-04 03:46] LABS: Slide Review Slide Review Perform
[2021-12-04 05:12] VITALS: BP 131/61; PULSE 70; RESP 18; O2SAT 95
--- NOTE | 2021-12-04 07:34 | PC.NURSE ---
No assessment was completed by the previous nurse.
[2021-12-04 07:57] LABS: Hematocrit 29.4 % (42.0-52.0); Hemoglobin 8.5 g/dL (11.7-16.6)
[2021-12-04 08:00] VITALS: BP 155/71; PULSE 62; RESP 16; TEMP 36.4; O2SAT 96
[2021-12-04 08:20] VITALS: BMI 34.2
[2021-12-04] MEDS: docusate sodium 100 mg Capsule PO ×2 (08:44→17:13)
[2021-12-04] MEDS: potassium chloride ER 20 mEq Tablet PO ×2 (08:44→17:13)
[2021-12-04] MEDS: FUROsemide 40 mg Tablet 80 MG PO ×2 (08:44→17:13)
[2021-12-04] MEDS: multivitamin therapeutic Tablet 1 TAB PO (08:44)
[2021-12-04] MEDS: ferrous sulfate EC 325 mg Tablet PO (08:44)
[2021-12-04] MEDS: ascorbic acid 500 mg Tablet PO (08:44)
[2021-12-04 10:54] VITALS: BP 138/72; PULSE 50; RESP 16; TEMP 36.8; O2SAT 96
[2021-12-04 12:33] VITALS: BP 138/72
[2021-12-04] MEDS: losartan 50 mg Tablet 25 MG PO (12:33)
[2021-12-04] MEDS: spironolactone 25 mg Tablet PO (12:34)
[2021-12-04 12:58] LABS: Hematocrit 31.3 % (42.0-52.0); Hemoglobin 9.1 g/dL (11.7-16.6)
[2021-12-04 15:32] LABS: Hematocrit 28.6 % (42.0-52.0); Hemoglobin 8.4 g/dL (11.7-16.6)
[2021-12-04 15:33] VITALS: BP 142/73; PULSE 63; RESP 16; TEMP 36.6; O2SAT 96
--- NOTE | 2021-12-04 16:13 | PC.OT ---
Occupational therapy evaluation was attempted; patient was not available.
--- NOTE | 2021-12-04 17:30 | PM.PN ---
Subjective Subjective: Overnight labs and H&P bowel movement with blood today. 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 Vitals/I&O/Wt Last Vital Signs Temp 97.8 F 12/04/21 15:33 Pulse 63 12/04/21 15:33 Resp 16 12/04/21 15:33 BP 142/73 12/04/21 15:33 Pulse Ox 96 12/04/21 15:33 12/04/21 12/04/21 12/04/21 06:59 14:59 22:59 Intake Total 480 / 480 Output Total 800 / 800 Balance 480 / 480 -800 / -320 Weight last 48 hrs Weight 117.934 kg Weight 117.934 kg Physical Exam Narrative: GEN: Awake, alert and oriented, no acute distress CVS: S1S2 N RS: CTA B/L Abd: Soft, nt/nd , bs+ PROGRAM SUPPORT SPECIALIST: no focal neuro deficits Data : 12/04/21 15:16 12/04/21 03:05 A&P Assessment and plan (1) Lower gastrointestinal hemorrhage: Status: Acute (2) S/P CABG (coronary artery bypass graft): Status: Acute (3) HTN (hypertension): Status: Acute (4) CAD (coronary artery disease): Status: Acute (5) Atrial fibrillation: Status: Acute (6) CVA (cerebral vascular accident): Status: Acute Qualifiers: CVA mechanism: unspecified Qualified Code(s): I63.9 - Cerebral infarction, unspecified (7) Hypercholesteremia: Status: Acute (8) Carotid stenosis: Status: Acute Plan Lower GI bleed -Hemoglobin admission 8.7, currently stable with stable hemodynamics. - 1 episode of bleeding mixed with stools today -patient's daughter at bedside reports that patient had resumed ELIquis 5mg BID over the last 3 days after follow up with his extension service supervisor. - Hold eliquis for now -recent colonoscopy on 11/15 with bleeding colinic angiectasia which was controlled during scope. Likely that patient has recurrent bleeding in the setting of resuming Eliquis. -Clear liquid diet -Monitor for bloody or black stools -Protonix, Carafate -Monitor hemodynamics -Hemoglobin every 4 hours -Full code -SCDs for DVT prophylaxis History of atrial fibrillation, Eliquis on hold History of DVT, Eliquis on hold, currently negative venoud duplex. Attestations Medical Necessity Statement*: 1 episode of blood tinged BM today, mostly solid, Hb stable, closely monitor over the next 24 hrs Coding Level of Care Code Acute Boat Oar Maker for Chg Fwd Diagnoses Lower gastrointestinal hemorrhage K92.2 S/P CABG (coronary artery bypass graft) Z95.1 HTN (hypertension) I10 CAD (coronary artery disease) I25.10 Atrial fibrillation I48.91 CVA (cerebral vascular accident) I63.9 CVA mechanism: unspecified Hypercholesteremia E78.00 Carotid stenosis I65.29
[2021-12-04 19:23] LABS: Hematocrit 27.9 % (42.0-52.0); Hemoglobin 8.3 g/dL (11.7-16.6)
[2021-12-04 20:00] VITALS: BP 157/67; PULSE 72; RESP 18; TEMP 36.5; O2SAT 96
[2021-12-04] MEDS: atorvastatin 40 mg Tablet PO (20:45)
[2021-12-04 23:24] LABS: Hematocrit 28.4 % (42.0-52.0); Hemoglobin 8.4 g/dL (11.7-16.6)
[2021-12-05 00:34] VITALS: BP 134/68; PULSE 67; RESP 18; TEMP 36.6; O2SAT 96
[2021-12-05] MEDS: sucralfate 1 gm/10 mL Oral Liq UDC PO (02:06)
[2021-12-05] MEDS: pantoprazole 40 mg SDV IVP (02:09)
[2021-12-05 02:32] LABS: Basophils # 0.1 10^3/uL (0.0-0.1); Basophils % 0.6 %; Eosinophils # 0.6 10^3/uL (0.0-0.8); Eosinophils % 6.5 %; Hematocrit 28.5 % (42.0-52.0); Hemoglobin 8.4 g/dL (11.7-16.6); Lymphocytes # 2.8 10^3/uL (0.8-4.8); Lymphocytes % 32.2 %; Mean Corpuscular HGB Conc 29.5 g/dL (30.0-36.0); Mean Corpuscular Hemoglobin 22.6 pg (28.0-34.0); Mean Corpuscular Volume 76.8 fl (80-94); Monocytes # 1.4 10^3/uL (0.2-0.9); Monocytes % 16.7 %; Neutrophils # 3.74 10^3/uL (1.8-7.7); Neutrophils % 43.5 %; Nucleated Red Blood Cells % 0 %; Platelet Count 447 10^3/cmm (130-400); Red Blood Count 3.71 10^6/uL (4.1-5.3); Red Cell Distribution Width 28.4 % (12.1-15.1); White Blood Count 8.6 10^3/uL (4.0-10.0)
[2021-12-05 03:03] LABS: Alanine Aminotransferase 28 U/L (0-41); Albumin Level 3.6 g/dL (3.5-5.2); Alkaline Phosphatase 84 IU/L (40-130); Anion Gap 13.2 (5-19); Aspartate Amino Transferase 31 U/L (0-40); Blood Urea Nitrogen 20 mg/dL (8-23); Calcium 9.7 mg/dL (8.5-10.5); Carbon Dioxide 25 mmol/L (22-29); Chloride 97 mmol/L (98-107); Globulin 3.4 g/dL (1.3-4.6); Glucose 108 mg/dL (65-115); Magnesium 1.9 mg/dL (1.7-2.3); Osmolality Calculated 275 mOsm/kg (285-295); Phosphorus 2.9 mg/dL (2.5-4.5); Potassium 4.2 mmol/L (3.5-5.1); Sodium 131 mmol/L (136-145); Total Bilirubin 0.4 mg/dL (0.15-1.2)
[2021-12-05 03:44] VITALS: BP 140/78; PULSE 64; RESP 18; TEMP 36.7; O2SAT 96
--- NOTE | 2021-12-05 06:38 | PC.NURSE ---
SHIFT SUMMARY Has not slept much tonight. Has watched TV. Ambulated in lr with walker couple of times. Has poor memory but is very pleasant. Went to bathroom this morning and forgot to use hat to obtains stool specimen and did not tell nurse he was going. Says had a brown BM and saw no blood in it . Is wanting to go home today. Has voided in urinal tonight with good output. Denies any abdominal pain/tenderness. H/H drawn several times and result has been 8.3-8.4 each time
[2021-12-05 07:51] LABS: Hematocrit 30.9 % (42.0-52.0); Hemoglobin 9.1 g/dL (11.7-16.6)
[2021-12-05 08:00] VITALS: BP 147/70; PULSE 67; RESP 18; TEMP 36.4; O2SAT 94
[2021-12-05] MEDS: docusate sodium 100 mg Capsule PO (08:33)
[2021-12-05] MEDS: ferrous sulfate EC 325 mg Tablet PO (08:33)
[2021-12-05] MEDS: ascorbic acid 500 mg Tablet PO (08:33)
[2021-12-05] MEDS: multivitamin therapeutic Tablet 1 TAB PO (08:33)
[2021-12-05] MEDS: FUROsemide 40 mg Tablet 80 MG PO (08:33)
[2021-12-05] MEDS: potassium chloride ER 20 mEq Tablet PO (08:33)
[2021-12-05 10:22] VITALS: PULSE 58; RESP 18; O2SAT 96
[2021-12-05 11:09] LABS: Hematocrit 31.3 % (42.0-52.0); Hemoglobin 9.2 g/dL (11.7-16.6)
--- NOTE | 2021-12-05 12:37 | PC.OT ---
Patient discharged before Occupational therapy evaluation could be completed.
--- NOTE | 2021-12-05 13:10 | PC.NURSE ---
patient and son verbalized understanding of discharge instructions, home medications, and follow up appointments. Dr. paez was at bedside at time of discharge and extensively discussed the holding the patients elliquis, and following up again with cardiology. pt and his son verbalized understanding. I gave the pt son phone numbers for gastroentenerology specialist in [place], should they feel the need to follow up with them as well. all questions answered at this time.
[2021-12-05 13:16] VITALS: PULSE 58; RESP 18; O2SAT 96
--- NOTE | 2021-12-05 16:16 | P.DS_ITS ---
Discharge Providers Date of Admission: 12/03/21 23:50 Date of Discharge: December 05, 2021 Attending Provider at Admission: Godwin Dawn MD Attending Provider at Discharge: Jossie Heard MD Primary Care Provider: NAEL Candelario Diagnoses at Discharge Discharge Diagnosis (1) Lower gastrointestinal hemorrhage: Status: Acute (2) S/P CABG (coronary artery bypass graft): Status: Acute Permanent problem details: 1977 and 1992 (3) HTN (hypertension): Status: Acute (4) CAD (coronary artery disease): Status: Acute (5) Atrial fibrillation: Status: Acute (6) CVA (cerebral vascular accident): Status: Acute Qualifiers: CVA mechanism: unspecified Qualified Code(s): I63.9 - Cerebral infarction, unspecified (7) Hypercholesteremia: Status: Acute (8) Carotid stenosis: Status: Acute Reason for Visit Reason for Visit: gi bleed Hospital Course Hospital Course 86 year old male with a past medical history of hypertension, CAD status post CABG, carotid artery stenosis status post carotid endarterectomy, dyslipidemia, obesity, 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 Patient had recently had a both lower and upper GI endoscopy on November 15, 2021. Upper GI endoscopy was normal. Lower GI endoscopy showed colonic a ngioectasia with bleeding which was stopped with epinephrine inj. patient had no recurrent bleeding until day of admission. Of note, he had remained off of Eliquis after the last colonoscopy until 3 days prior to admission, when Eliquis was resumed at the advice of his sunday school missionary Dr. Bashir in [place]. Patient's hemoglobin remained stable between 8.6-9.1 during course of admission. He had one episode of fresh blood mixed with stools yesterday, less than 1 teaspoon in quantity. Bleeding did not recur today. Hemodynamics and hemoglobin both remained stable and patient was discharged with recommendations to stop Eliquis at least for the next week. Encouraged to follow-up with his sunday school missionary next week regarding resuming Eliquis, perhaps at a lower dose. LE duplex was negative for DVT this admission. Physical Exam Narrative: GEN: Awake, alert and oriented, no acute distress CVS: S1S2 N RS: CTA B/L Abd: Soft, nt/nd , bs+ MANAGING DIRECTOR: no focal neuro deficits Discharge Data Studies Completed and Pending Completed Studies During Hospitalization Category Date Time Status CT abdomen pelvis w con* [id number] Urgent Cat Scan 12/03/21 19:39 [place] [id number] Urgent Ultrasound 12/04/21 02:09 Completed Radiology Impressions Abdomen/Pelvis CT 12/03/21 19:39 IMPRESSION: 1. No acute abnormality identified in the abdomen or pelvis. 2. No active GI hemorrhage identified. 3. Diverticulosis of the distal colon without diverticulitis. COMMENTS: Consistent with the [employer]'s Incidental Findings Committee white paper (J Am Jigna Radiol 2018): Any incidental renal lesion less than 1 cm or classified as too small to characterize, or any incidental cystic renal lesion characterized as simple-appearing, is likely benign. No follow-up imaging is recommended for these lesions per consensus recommendations based on imaging criteria. Venous Duplex 12/04/21 02:09 IMPRESSION: No evidence of deep venous thrombosis. Laboratory Results WBC 8.6 10^3/uL (4.0-10.0) 12/05/21 02:26 RBC 3.71 10^6/uL (4.1-5.3) L 12/05/21 02:26 Hgb 9.2 g/dL (11.7-16.6) L 12/05/21 11:00 Hct 31.3 % (42.0-52.0) L 12/05/21 11:00 MCV 76.8 fl (80-94) L 12/05/21 02:26 MCH 22.6 pg (28.0-34.0) L 12/05/21 02:26 MCHC 29.5 g/dL (30.0-36.0) L 12/05/21 02:26 RDW 28.4 % (12.1-15.1) H 12/05/21 02:26 Plt Count 447 10^3/cmm (130-400) H 12/05/21 02:26 MPV 10.0 fL (7.4-10.4) 12/05/21 02:26 Neut % (Auto) 43.5 % 12/05/21 02:26 Lymph % (Auto) 32.2 % 12/05/21 02:26 [place] % (Auto) 16.7 % 12/05/21 02: Eos % (Auto) 6.5 % 12/05/21 02: Baso % (Auto) 0.6 % 12/05/21 02: Neut # (Auto) 3.74 10^3/uL (1.8-7.7) 12/05/21 02: Lymph # (Auto) 2.8 10^3/uL (0.8-4.8) 12/05/21 02:26 [place] # (Auto) 1.4 10^3/uL (0.2-0.9) H 12/05/21 02: Eos # (Auto) 0.6 10^3/uL (0.0-0.8) 12/05/21 02: Baso # (Auto) 0.1 10^3/uL (0.0-0.1) 12/05/21 02: Nucleated RBC % (auto) 0 % 12/05/21 02: Nucleated RBCs # 0.0 /100WBC 12/05/21 02:26 PT 15.70 SECONDS (12.1-14.9) H 12/03/21 20:54 INR 1.22 (0.8-1.2) H 12/03/21 20:54 APTT 34.9 SECONDS (23.9-36.7) 12/03/21 20:54 Sodium 131 mmol/L (136-145) L 12/05/21 02:26 Potassium 4.2 mmol/L (3.5-5.1) 12/05/21 02:26 Chloride 97 mmol/L (98-107) L 12/05/21 02:26 Carbon Dioxide 25 mmol/L (22-29) 12/05/21 02:26 Anion Gap 13.2 (5-19) 12/05/21 02:26 BUN 20 mg/dL (8-23) 12/05/21 02:26 Creatinine 1.0 mg/dL (0.7-1.2) 12/05/21 02:26 GFR Calculation Not Reportable 12/05/21 02:26 Glucose 108 mg/dL (65-115) 12/05/21 02:26 Calculated Osmolality 275 mOsm/kg (285-295) L 12/05/21 02:26 Lactate 1.4 mmol/L (0.5-2.2) 12/03/21 20:11 Calcium 9.7 mg/dL (8.5-10.5) 12/05/21 02:26 Phosphorus 2.9 mg/dL (2.5-4.5) 12/05/21 02:26 Magnesium 1.9 mg/dL (1.7-2.3) 12/05/21 02:26 Total Bilirubin 0.4 mg/dL (0.15-1.2) 12/05/21 02:26 AST 31 U/L (0-40) 12/05/21 02:26 ALT 28 U/L (0-41) 12/05/21 02:26 Alkaline Phosphatase 84 IU/L (40-130) 12/05/21 02:26 C-Reactive Protein 3.0 mg/L (0.0-4.9) 12/03/21 20:11 Total Protein 7.0 g/dL (6.6-8.7) 12/05/21 02:26 Albumin 3.6 g/dL (3.5-5.2) 12/05/21 02:26 Globulin 3.4 g/dL (1.3-4.6) 12/05/21 02:26 Urine Color Yellow (Yellow) 12/03/21 19:42 Urine Appearance Clear (CLEAR) 12/03/21 19:42 Urine pH 7 (5-7) 12/03/21 19:42 Ur Specific [place] 1.005 (1.005-1.030) 12/03/21 19:42 Urine Protein Neg (Negative) 12/03/21 19:42 Urine Glucose (UA) Norm (Normal) 12/03/21 19:42 Urine Ketones Negative (Negative) 12/03/21 19:42 Urine Blood Neg (Negative) 12/03/21 19:42 Urine Nitrate Negative (Negative) 12/03/21 19:42 Urine Bilirubin Neg (Negative) 12/03/21 19:42 Urine Urobilinogen Neg mg/dL (Negative) 12/03/21 19:42 Ur Leukocyte Esterase Negative (Negative) 12/03/21 19:42 Blood Type A Negative 12/03/21 20:11 Rho(D) Type Negative 12/03/21 20:11 Antibody Screen Positive 12/03/21 20:11 Antibody Identification Anti-Fya 12/03/21 20:11 Vitals Last Vital Signs Temp 97.5 F L 12/05/21 08:00 Pulse 58 L 12/05/21 13:16 Resp 18 12/05/21 13:16 BP 147/70 12/05/21 08:00 Pulse Ox 96 12/05/21 13:16 Discharge Plan Discharge Patient Disposition: Home Condition: Stable Prescriptions: Continued spironolactone 25 mg tablet 25 mg PO DAILY@12 0RF furosemide 80 mg tablet 80 mg PO BID 0RF magnesium 250 mg Tablet 500 mg PO QPM 0RF fluticasone propionate 50 mcg/actuation spray,suspension 1 spray INTRANASAL BID PRN (Reason: Nasal Congestion) 0RF Atrovent HFA 17 mcg/actuation HFA aerosol inhaler 2 puff INHALATION QID PRN (Reason: Shortness Of Breath) 0RF losartan 50 mg tablet 25 mg PO DAILY@12 0RF atorvastatin 40 mg tablet 40 mg PO BEDTIME 0RF potassium chloride 20 mEq tablet extended release 20 meq PO BID 0RF multivitamin Tablet 1 tab PO DAILY 0RF Vitamin C 500 mg Tablet 500 mg PO DAILY 0RF iron 325 mg (65 mg iron) Tablet 325 mg PO DAILY 0RF Discontinued Eliquis 5 mg Tablet 5 mg PO BID 0RF Discharge Orders: Discharge Order (Routine); Ordered 12/05/21 Ordered By: Jossie Heard Other Ambulatory Orders: DME: Herbie (Order) Location: None Selected Ordered By: Jossie Heard Referrals: [facility] ([facility]) [Outside] Jose Welch GLASS FURNACE TENDER [Primary Care Provider] - (Please call [facility] in [place] and schedule an appointment to be seen within the next 10 days.) Patient Instructions: Gastrointestinal Bleeding (GEN), Anemia (GEN), Opioid Safety Discharge Attestations Time Spent in Discharge Care*: greater than 30 min Quality Metrics Clinical Quality Measures [ No reported AMI, CVA or VTE this stay] Coding Level of Care Code Acute Chg FW DC note Diagnoses Lower gastrointestinal hemorrhage K92.2 S/P CABG (coronary artery bypass graft) Z95.1 HTN (hypertension) I10 CAD (coronary artery disease) I25.10 Atrial fibrillation I48.91 CVA (cerebral vascular accident) I63.9 CVA mechanism: unspecified Hypercholesteremia E78.00 Carotid stenosis I65.29
== END 2021-12-05 12:50 | disposition home or self-care (01) ==
LOC: ER 23:04 → MEDSURG 12-04 07:17
PROVIDERS: Admitting Provider Family Medicine; Emergency Provider Emergency Medicine; PCP Nurse Practitioner; Visit Provider Student in an Organized Health Care Education/Training Program
DX: K92.2 Gastrointestinal hemorrhage, unspecified (principal); Z95.1 Presence of aortocoronary bypass graft; I10 Essential (primary) hypertension; I25.10 Atherosclerotic heart disease of native coronary artery without angina pectoris; I48.91 Unspecified atrial fibrillation; I63.9 Cerebral infarction, unspecified; E78.00 Pure hypercholesterolemia, unspecified; I65.23 Occlusion and stenosis of bilateral carotid arteries; E78.5 Hyperlipidemia, unspecified; E66.9 Obesity, unspecified; Z68.34 Body mass index [BMI] 34.0-34.9, adult; Z86.718 Personal history of other venous thrombosis and embolism; Z86.73 Personal history of transient ischemic attack (TIA), and cerebral infarction without residual deficits
CPT/HCPCS: 36415; 74177; 80053; 81003; 83605; 83735; 84100; 85014; 85018; 85025; 85610; 85730; 86140; 86850; 86870; 86900; 93005; 93970; 96361; 96374; 97110; 97116; 97161; 99285; C9113; G0378; J7030; Q9967

== ENCOUNTER 2021-12-06 14:26 | Outpatient (CLI) | payer MEDICARE, MEDICAID, SELFPAY | END 2021-12-06 14:27 | disposition home or self-care (01) | LOC: LAB 14:27 | PROVIDERS: PCP Nurse Practitioner; Visit Provider Nurse Practitioner | DX: D50.0 Iron deficiency anemia secondary to blood loss (chronic) (principal) | CPT/HCPCS: 85025 ==

== ENCOUNTER 2021-12-07 14:53 | Outpatient (CLI) | payer MEDICARE, MEDICAID, SELFPAY ==
[2021-12-07 15:08] LABS: Basophils # 0.1 10^3/uL (0.0-0.1); Basophils % 0.5 %; Eosinophils # 0.5 10^3/uL (0.0-0.8); Eosinophils % 5.5 %; Hematocrit 31.2 % (42.0-52.0); Hemoglobin 8.9 g/dL (11.7-16.6); Lymphocytes # 3.1 10^3/uL (0.8-4.8); Lymphocytes % 31.6 %; Mean Corpuscular HGB Conc 28.5 g/dL (30.0-36.0); Mean Corpuscular Hemoglobin 22.9 pg (28.0-34.0); Mean Corpuscular Volume 80.2 fl (80-94); Monocytes # 1.7 10^3/uL (0.2-0.9); Monocytes % 17.1 %; Neutrophils # 4.44 10^3/uL (1.8-7.7); Neutrophils % 44.8 %; Nucleated Red Blood Cells % 0.3 %; Red Blood Count 3.89 10^6/uL (4.1-5.3); Red Cell Distribution Width 28.6 % (12.1-15.1); White Blood Count 9.9 10^3/uL (4.0-10.0)
[2021-12-07 15:24] LABS: Add RBC Morph Yes; Platelet Count 322 10^3/cmm (130-400); Slide Review Slide Review Perform
[2021-12-07 15:25] LABS: Anisocytosis 1+; Poikilocytosis 2+; Schistocytes 1+
[2021-12-07 15:26] LABS: Burr Cells 1+; RBC Morph Comp Yes; Target Cells 1+
== END 2021-12-07 14:54 | disposition home or self-care (01) ==
LOC: LAB 14:56
PROVIDERS: PCP Nurse Practitioner; Visit Provider Nurse Practitioner
DX: D50.0 Iron deficiency anemia secondary to blood loss (chronic) (principal)
CPT/HCPCS: 85025

== ENCOUNTER 2021-12-10 11:34 | Outpatient (CLI) | payer MEDICARE, MEDICAID, SELFPAY ==
[2021-12-10 11:55] LABS: Basophils # 0.1 10^3/uL (0.0-0.1); Basophils % 0.6 %; Eosinophils # 0.7 10^3/uL (0.0-0.8); Eosinophils % 5.4 %; Lymphocytes % 24.5 %; Mean Corpuscular Volume 79.3 fl (80-94); Monocytes # 1.8 10^3/uL (0.2-0.9); Monocytes % 14.2 %; Nucleated Red Blood Cells % 0.2 %; Platelet Count 505 10^3/cmm (130-400); Red Blood Count 3.91 10^6/uL (4.1-5.3); Red Cell Distribution Width 28.6 % (12.1-15.1); White Blood Count 12.4 10^3/uL (4.0-10.0)
[2021-12-10 12:11] LABS: Alanine Aminotransferase 23 U/L (0-41); Alkaline Phosphatase 87 IU/L (40-130); Anion Gap 14.6 (5-19); Aspartate Amino Transferase 31 U/L (0-40); Blood Urea Nitrogen 29 mg/dL (8-23); Calcium 10.4 mg/dL (8.5-10.5); Carbon Dioxide 27 mmol/L (22-29); Chloride 100 mmol/L (98-107); Globulin 3.3 g/dL (1.3-4.6); Glucose 106 mg/dL (65-115); Osmolality Calculated 290 mOsm/kg (285-295); Potassium 4.6 mmol/L (3.5-5.1); Sodium 137 mmol/L (136-145); Total Bilirubin 0.4 mg/dL (0.15-1.2); Total Protein 7.3 g/dL (6.6-8.7)
== END 2021-12-10 11:35 | disposition home or self-care (01) ==
PROVIDERS: PCP Nurse Practitioner; Visit Provider Nurse Practitioner
DX: D50.0 Iron deficiency anemia secondary to blood loss (chronic) (principal)
CPT/HCPCS: 80053; 85025

== ENCOUNTER 2021-12-20 10:44 | Outpatient (CLI) | payer MEDICARE, MEDICAID, SELFPAY ==
[2021-12-20 11:07] LABS: Basophils # 0.1 10^3/uL (0.0-0.1); Basophils % 0.7 %; Eosinophils # 0.4 10^3/uL (0.0-0.8); Eosinophils % 4.7 %; Hematocrit 32.8 % (42.0-52.0); Hemoglobin 9.8 g/dL (11.7-16.6); Lymphocytes # 2.9 10^3/uL (0.8-4.8); Lymphocytes % 32.2 %; Mean Corpuscular HGB Conc 29.9 g/dL (30.0-36.0); Mean Corpuscular Hemoglobin 24.1 pg (28.0-34.0); Mean Corpuscular Volume 80.8 fl (80-94); Mean Platelet Volume 10.7 fL (7.4-10.4); Monocytes # 1.4 10^3/uL (0.2-0.9); Monocytes % 15.6 %; Neutrophils # 4.16 10^3/uL (1.8-7.7); Neutrophils % 46.5 %; Nucleated Red Blood Cells % 0 %; Platelet Count 382 10^3/cmm (130-400); Red Blood Count 4.06 10^6/uL (4.1-5.3); Red Cell Distribution Width 30.2 % (12.1-15.1)
== END 2021-12-20 10:45 | disposition home or self-care (01) ==
LOC: LAB 10:47
PROVIDERS: PCP Nurse Practitioner; Visit Provider Nurse Practitioner Family
DX: D64.9 Anemia, unspecified (principal)
CPT/HCPCS: 85025

== ENCOUNTER → 2021-12-21 14:05 | Outpatient (BNVA) | payer MEDICARE, MEDICAID, SELFPAY | PROVIDERS: PCP Nurse Practitioner; Visit Provider Internal Medicine Cardiovascular Disease | DX: I25.10 Atherosclerotic heart disease of native coronary artery without angina pectoris (principal); I10 Essential (primary) hypertension; R60.9 Edema, unspecified; I48.91 Unspecified atrial fibrillation; D64.9 Anemia, unspecified | CPT/HCPCS: 99213 ==

== ENCOUNTER → 2021-12-29 14:47 | Outpatient (BNVA) | payer MEDICARE, MEDICAID, SELFPAY | PROVIDERS: PCP Nurse Practitioner; Visit Provider Nurse Practitioner Family | DX: R32 Unspecified urinary incontinence (principal) | CPT/HCPCS: 81003 ==

== ENCOUNTER 2022-01-10 10:56 | Outpatient (CLI) | payer MEDICARE, MEDICAID, SELFPAY ==
[2022-01-10 11:17] LABS: Basophils # 0.1 10^3/uL (0.0-0.1); Basophils % 1.2 %; Eosinophils # 0.3 10^3/uL (0.0-0.8); Eosinophils % 3.8 %; Hematocrit 38.5 % (42.0-52.0); Hemoglobin 11.8 g/dL (11.7-16.6); Lymphocytes # 2.4 10^3/uL (0.8-4.8); Lymphocytes % 32.3 %; Mean Corpuscular HGB Conc 30.6 g/dL (30.0-36.0); Mean Platelet Volume 11.6 fL (7.4-10.4); Monocytes # 1.3 10^3/uL (0.2-0.9); Monocytes % 17.9 %; Neutrophils # 3.24 10^3/uL (1.8-7.7); Neutrophils % 44.5 %; Nucleated Red Blood Cells % 0 %; Platelet Count 324 10^3/cmm (130-400); Red Blood Count 4.53 10^6/uL (4.1-5.3); White Blood Count 7.3 10^3/uL (4.0-10.0)
== END 2022-01-10 10:57 | disposition home or self-care (01) ==
LOC: LAB 10:57
PROVIDERS: PCP Nurse Practitioner; Visit Provider Nurse Practitioner
DX: D50.0 Iron deficiency anemia secondary to blood loss (chronic) (principal)
CPT/HCPCS: 85025

== ENCOUNTER 2022-05-17 11:42 | Observation (INO) | payer MEDICARE, MEDICAID, SELFPAY ==
[2022-05-17 11:45] VITALS: BP 134/74; PULSE 70; RESP 17; TEMP 36.8; O2SAT 93; BMI 34.7
--- NOTE | 2022-05-17 11:48 | XR_ITS ---
WS: [id number] Exam: XR chest 1V portable [id number] Date/Time of Exam: 05/17/2022 11:52 AM Reason For Exam: dyspnea Comparison 11/14/2021. The lungs are fully expanded and clear. Heart size upper limits normal. No pleural effusions. Signs of previous CABG surgery. Mediastinal contours are normal. Bony structures are intact. XR/XR chest 1V portable [id number] IMPRESSION: 1. No acute cardiopulmonary finding.
--- NOTE | 2022-05-17 11:48 | ECG_ITS ---
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 Measurements Intervals [place] Rate: 67 P: [place]: QRS: -7 QRSD: 131 T: 20 QT: 428 QTc: 453 Interpretive Statements ATRIAL FIBRILLATION WITH ABERRANT CONDUCTION OR VENTRICULAR PREMATURE COMPLEXES INTRAVENTRICULAR CONDUCTION DELAY [130+ ms QRS DURATION] SEPTAL MYOCARDIAL INFARCTION , PROBABLY OLD [40+ ms Q WAVE IN V1/V2] Compared to ECG 12/03/2021 20:57:44 Intraventricular conduction delay now present Myocardial infarct finding still present Electronically Signed On 05-17-2022 21:30:25 CDT by Kellee Jain M.D. [id number]
--- NOTE | 2022-05-17 11:59 | ED_ITS ---
HPI - General Adult General: Chief complaint: General Medical Stated complaint: low O2 Time Seen by Provider: 05/17/22 11:47 History of Present Illness: Patient is 87-year-old male with history of CHF, CAD with multiple CABGs, hypertension, atrial fibrillation with eliquis on hold presenting to the emergency room for concerns of low oxygen. Patient was seen earlier today in clinic and was noted to have an O2 sat of 88%. Patient improved to 92% by time EMS arrived. Patient does not use oxygen at baseline. Denies any history of smoking, COPD or asthma. EMS was called and patient was brought to the emergency room. On arrival, patient tells me that he has no focal complaints here. Patient denies any cough, runny nose, sore throat, diarrhea/melena/hematochezia, chest pain or shortness of breath. Patient does not know why he is here in the emergency room other than I am here because my son told me to come here Onset: unknown Duration:unknown Location:clinic Severity:mild/moderate Associated symptoms: Deny chest pain, dyspnea, nausea, rash, palpitations or vomiting Review of Systems 2 Const: Denies: fever(s) or chills Eyes: Denies: change in vision ENMT: Denies: mouth pain Card: Denies: chest pain or palpitations Resp: Denies: dyspnea or non-productive cough GI: Denies: abdominal pain, nausea, vomiting or diarrhea : Denies: dysuria Musc: Denies: extremity pain Skin/Breast: Denies: rash or new lesions Neuro: Denies: weakness in extremities Psych: Reports: other (Normal mood) Madi/Lymph: Denies: easy bruising [facility] PFSH: Medical History Anticoagulated Eliquis on hold Atrial fibrillation CAD (coronary artery disease) Carotid stenosis CVA (cerebral vascular accident) History of prostate cancer HTN (hypertension) Hypercholesteremia Hyponatremia Lower urinary tract symptoms (LUTS) Urinary incontinence Surgical History H/O carotid endarterectomy S/P CABG (coronary artery bypass graft) 1977 and 1992 Family History Father , AT AGE 56 Heart attack Mother , IN HER 50'S Cancer LUNG Social History Smoking and tobacco status: never smoked Alcohol intake: never Marital status: / Current occupational status: retired History of recent travel: No Physical Exam Const: COMMON NORMALS: alert HENMT: COMMON NORMALS: atraumatic HEAD & SCALP: atraumatic MOUTH: moist mucous membranes not abnormal Eye: COMMON NORMALS: EOMs intact bilaterally and conjunctivae normal CONJUNCTIVA: Yes conjunctivae normal Neck/C-Spine: COMMON NORMALS: full ROM and supple Resp: COMMON NORMALS: normal respiratory effort and clear to auscultation bilaterally AUSCULTATION: clear to auscultation bilaterally Cardio: COMMON NORMALS: regular rate RATE: regular rate GI: COMMON NORMALS: Soft to palpation and non-tender PALPATION: Yes Soft to palpation Extremity: COMMON NORMALS: full ROM Neuro: SENSORIUM/ORIENTATION: Yes alert MOTOR EXAM: No Abnormal motor strength present and Other motor observations present (no focal motor deficits) Psych: COMMON NORMALS: speech normal SPEECH: Yes normal speech MOOD & AFFECT: Yes euthymic mood Course Vital Signs: Vital signs: Vital Signs Temperature 98.2 F 05/17/22 11:45 Pulse Rate 65 05/17/22 12:19 Respiratory Rate 16 05/17/22 12:19 Blood Pressure 124/64 05/17/22 12:19 Pulse Oximetry 93 05/17/22 12:19 [facility] - General Adult Medical Decision Making Patient is 87-year-old male with history of CHF, CAD with multiple CABGs, hypertension, atrial fibrillation with eliquis on hold presenting to the emergency room for concerns of low oxygen. On arrival, patient is noted satting 85 to 87% on room air that improved to 93% on oxygen. Patient's COVID positive today. Patient is afebrile. White count of 6.3. Sodium 131 today. X-ray ches t not showing focal pathology. D-dimer appears to be elevated. CTA is negative for PE. Patient is requiring 2 L oxygen. No signs of oral airway compromise. Patient is in no respiratory distress. Patient received Decadron/remdesivir as part of COVID work-up. Disposition: admission Lab Data : 05/17/22 12:21 05/17/22 12:21 Radiology Impressions Chest X-Ray 05/17/22 11:48 IMPRESSION: 1. No acute cardiopulmonary finding. Chest CTA 05/17/22 13:59 IMPRESSION: 1. No pulmonary embolism. 2. Volume loss with atelectasis at the RIGHT lung base with slight elevation of the RIGHT hemidiaphragm. 3. No pneumonia. 4. No adenopathy. 5. Mild atherosclerosis aorta. Laboratory Results WBC 6.5 10^3/uL (4.0-10.0) 05/17/22 12:21 RBC 4.49 10^6/uL (4.1-5.3) 05/17/22 12:21 Hgb 14.0 g/dL (11.7-16.6) 05/17/22 12:21 Hct 42.0 % (42.0-52.0) 05/17/22 12:21 MCV 93.5 fl (80-94) 05/17/22 12:21 MCH 31.2 pg (28.0-34.0) 05/17/22 12:21 MCHC 33.3 g/dL (30.0-36.0) 05/17/22 12:21 RDW 15.9 % (12.1-15.1) H 05/17/22 12:21 Plt Count 198 10^3/cmm (130-400) 05/17/22 12:21 MPV 12.1 fL (7.4-10.4) H 05/17/22 12:21 Neut % (Auto) 21.0 % 05/17/22 12:21 Lymph % (Auto) 43.5 % 05/17/22 12:21 [place] % (Auto) 33.6 % 05/17/22 12:21 Eos % (Auto) 0.5 % 05/17/22 12:21 Baso % (Auto) 0.9 % 05/17/22 12:21 Neut # (Auto) 1.37 10^3/uL (1.8-7.7) L 05/17/22 12:21 Lymph # (Auto) 2.8 10^3/uL (0.8-4.8) 05/17/22 12:21 [place] # (Auto) 2.2 10^3/uL (0.2-0.9) H 05/17/22 12:21 Eos # (Auto) 0.0 10^3/uL (0.0-0.8) 05/17/22 12:21 Baso # (Auto) 0.1 10^3/uL (0.0-0.1) 05/17/22 12:21 Nucleated RBC % (auto) 0 % 05/17/22 12:21 Nucleated RBCs # 0.0 /100WBC 05/17/22 12:21 D-Dimer 2.87 ug/mIFEU (0-0.59) H 05/17/22 13:30 Sodium 131 mmol/L (136-145) L 05/17/22 12:21 Potassium 4.8 mmol/L (3.5-5.1) 05/17/22 12:21 Chloride 95 mmol/L (98-107) L 05/17/22 12:21 Carbon Dioxide 21 mmol/L (22-29) L 05/17/22 12:21 Anion Gap 19.8 (5-19) H 05/17/22 12:21 BUN 31 mg/dL (8-23) H 05/17/22 12:21 Creatinine 1.1 mg/dL (0.7-1.2) 05/17/22 12:21 GFR Calculation Not Reportable 05/17/22 12:21 Glucose 115 mg/dL (65-115) 05/17/22 12:21 Calculated Osmolality 279 mOsm/kg (285-295) L 05/17/22 12:21 Calcium 8.6 mg/dL (8.5-10.5) 05/17/22 12:21 Troponin T Baseline 47 ng/L (0-15) H 05/17/22 12:21 Troponin T 120 Minute 56.10 ng/L (0-15) H 05/17/22 14:30 Delta Troponin T 9.10 ABS# (0-10) 05/17/22 14:30 NT-Pro-B Natriuret Pep 806 pg/mL (0-450) H 05/17/22 12:21 SARS-CoV-2 Ag (Rapid) Positive (Negative) H 05/17/22 12:21 Imaging Data Other Imaging: Radiologist's impression: [address] [place] [address] XRay Report Signed Patient: Mikal Waller Unit #: [id number] : 1935 Age/Sex: 87 / M ADM Date: 05/17/22 Loc: ER Room/Bed: Attending Dr: Ordering Provider/Ordering MD: Justyn Johnson MD Date of Service: 05/17/22 Procedure(s): XR chest 1V portable [id number] Accession Number(s): [id number] Report Number: [id number] WS: [email or web address] Exam: XR chest 1V portable [id number] Date/Time of Exam: 05/17/2022 11:52 AM Reason For Exam: dyspnea Comparison 11/14/2021. The? lungs are fully expanded and clear. Heart size upper limits normal. No pleural effusions. Signs of previous CABG surgery. Mediastinal contours are normal. Bony structures are intact. XR/XR chest 1V portable [id number] IMPRESSION: 1. No acute cardiopulmonary finding. ? Dictated By: Fuad Jackson DO Signed By: Fuad Jackson DO Signed Date/Time: 05/17/22 1210 DD/ [address] [place] [address] CT Scan Report Signed Patient: Mikal Waller Unit #: [id number] : 1935 Age/Sex: 87 / M ADM Date: 05/17/22 Loc: ER Room/Bed: Attending Dr: Ordering Provider/Ordering MD: Justyn Johnson MD Date of Service: 05/17/22 Procedure(s): CT angio chest PE protcl [id number] Accession Number(s): [id number] Report Number: [id number] WS: [email or web address] CT CHEST ANGIOGRAPHY WITH REFORMATS HISTORY: hypoxemia, covid positive TECHNIQUE: Contiguous axial images are obtained through the chest during arterial injection of intravenous contrast. Images are reconstructed to evaluate the pulmonary arteries. MIP imaging also reviewed.? All CT scans at [facility] use at least one of these dose optimization techniques: automated exposure control; mA and/or kV adjustment per patient size (includes targeted exams where dose is matched to clinical indication); or iterative reconstruction. CONTRAST: Omnipaque 350; 95 mL IV. DLP: 796.57 mGy.cm COMPARISON: None available. Good opacification of the pulmonary arteries. No filling defects or pulmonary emboli are identified. Mild atherosclerosis thoracic aorta. Scattered plaque. Prior CABG. No RIGHT heart strain. Cardiac chambers are slightly enlarged. No pericardial or pleural effusion. Mild dependent changes at the lung bases, slightly greater at the RIGHT lung base. No mass. Mild elevation of the RIGHT hemidiaphragm. Mild tricuspid regurgitation. No adrenal mass. Small hiatal hernia. Moderate thoracic spo ndylosis. Moderate bilateral gynecomastia. CT/CT angio chest PE protcl [id number] IMPRESSION: ? 1.? No pulmonary embolism. 2.? Volume loss with atelectasis at the RIGHT lung base with slight elevation of the RIGHT hemidiaphragm. 3.? No pneumonia. 4.? No adenopathy. 5.? Mild atherosclerosis aorta. ? ? ? Dictated By: Rosita Vicente DO Signed By: Rosita Vicente DO Signed Date/Time: 05/17/22 1545 DD/ 1533 Discharge Plan Discharge Patient Disposition: Admitted As Inpatient Clinical Impression: COVID, Hypoxemia Condition: Stable Coding Level of Care Code ED Development Administrator for Chg Fwd Exam Comprehensive
[2022-05-17 12:19] VITALS: BP 124/64; PULSE 65; RESP 16; O2SAT 93
[2022-05-17 12:36] LABS: Basophils # 0.1 10^3/uL (0.0-0.1); Basophils % 0.9 %; Eosinophils % 0.5 %; Lymphocytes # 2.8 10^3/uL (0.8-4.8); Lymphocytes % 43.5 %; Mean Corpuscular HGB Conc 33.3 g/dL (30.0-36.0); Mean Corpuscular Hemoglobin 31.2 pg (28.0-34.0); Mean Corpuscular Volume 93.5 fl (80-94); Mean Platelet Volume 12.1 fL (7.4-10.4); Monocytes # 2.2 10^3/uL (0.2-0.9); Monocytes % 33.6 %; Neutrophils # 1.37 10^3/uL (1.8-7.7); Nucleated Red Blood Cells % 0 %; Platelet Count 198 10^3/cmm (130-400); Red Blood Count 4.49 10^6/uL (4.1-5.3); Red Cell Distribution Width 15.9 % (12.1-15.1); White Blood Count 6.5 10^3/uL (4.0-10.0)
[2022-05-17 12:53] LABS: SARS Covid-2 Antigen Positive (Negative)
[2022-05-17 13:00] LABS: Troponin(5th) Baseline 47 ng/L (0-15)
--- NOTE | 2022-05-17 13:48 | ECG_ITS ---
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 Measurements Intervals [place] Rate: 84 P: [place]: QRS: -17 QRSD: 126 T: 36 QT: 386 QTc: 457 Interpretive Statements ATRIAL FIBRILLATION WITH ABERRANT CONDUCTION OR VENTRICULAR PREMATURE COMPLEXES ANTEROSEPTAL MYOCARDIAL INFARCTION , OF INDETERMINATE AGE [40+ ms Q WAVE IN V1-V4] Compared to ECG 05/17/2022 17:47:39 Intraventricular conduction delay no longer present Myocardial infarct finding still present Electronically Signed On 05-17-2022 21:39:22 CDT by Kellee Jain M.D. [id number]
[2022-05-17 13:56] LABS: D Dimer 2.87 ug/mIFEU (0-0.59)
--- NOTE | 2022-05-17 13:59 | CT_ITS ---
WS: [email or web address] CT CHEST ANGIOGRAPHY WITH REFORMATS HISTORY: hypoxemia, covid positive TECHNIQUE: Contiguous axial images are obtained through the chest during arterial injection of intrav enous contrast. Images are reconstructed to evaluate the pulmonary arteries. MIP imaging also reviewe d. All CT scans at [facility] use at least one of these dose optimization techniques: automat ed exposure control; mA and/or kV adjustment per patient size (includes targeted exams where dose is matched to clinical indication); or iterative reconstruction. CONTRAST: Omnipaque 350; 95 mL IV. DLP: 796.57 mGy.cm COMPARISON: None available. Good opacification of the pulmonary arteries. No filling defects or pulmonary emboli are identified. Mild atherosclerosis thoracic aorta. Scattered plaque. Prior CABG. No RIGHT heart strain. Cardiac mateus mbers are slightly enlarged. No pericardial or pleural effusion. Mild dependent changes at the lung bases, slightly greater at the RIGHT lung base. No mass. Mild elev ation of the RIGHT hemidiaphragm. Mild tricuspid regurgitation. No adrenal mass. Small hiatal hernia. Moderate thoracic spondylosis. Moderate bilateral gynecomastia. CT/CT angio chest PE protcl [id number] IMPRESSION: 1. No pulmonary embolism. 2. Volume loss with atelectasis at the RIGHT lung base with slight elevation o f the RIGHT hemidiaphragm. 3. No pneumonia. 4. No adenopathy. 5. Mild atherosclerosis aorta.
[2022-05-17 14:03] LABS: Blood Urea Nitrogen 31 mg/dL (8-23); Calcium 8.6 mg/dL (8.5-10.5); Carbon Dioxide 21 mmol/L (22-29); Chloride 95 mmol/L (98-107); Glucose 115 mg/dL (65-115); NT Pro B Type Natriuretic Pept 806 pg/mL (0-450); Osmolality Calculated 279 mOsm/kg (285-295); Sodium 131 mmol/L (136-145)
[2022-05-17 14:07] LABS: Anion Gap 19.8 (5-19); Potassium 4.8 mmol/L (3.5-5.1)
[2022-05-17] MEDS: remdesivir 200 MG in sodium chloride 0.9% (100 ml) 60 ML 100 MG IV (14:30)
[2022-05-17] MEDS: dexamethasone 10 mg/mL INJ 6 MG IVP (14:30)
--- NOTE | 2022-05-17 15:48 | P.HP_ITS ---
Providers/Chief Complaint Primary Care Provider: NAEL Candelario Chief Complaint: low O2 History of Present Illness Mikal Waller is a 87 year old male who presented to the hospital for mild confusion. Patient has been tested for COVID-19. Patient is living with his son, patient is stating that his symptoms started roughly 3 days ago, today he has tested positive for COVID-19. No recent fever, he has never used oxygen. Does not smoke or drink alcohol. No active chest pain, diarrhea or abdominal pain. No strokelike features. Review of Systems Const: Reports: chills Eyes: Denies: change in vision ENMT: Denies: throat pain Card: Denies: chest pain Resp: Denies: dyspnea GI: Denies: abdominal pain : Denies: flank pain Musc: Denies: neck pain Skin/Breast: Denies: rash Neuro: Denies: headache(s) Psych: Reports: anxiety Endo: Denies: polyuria Madi/Lymph: Denies: easy bruising All/Imm: Denies: urticaria Medications/Allergies Home Medications Medication Instructions Recorded Confirmed Last Taken Type atorvastatin 40 mg tablet 40 mg PO BEDTIME 11/12/21 05/17/22 05/16/22 History fluticasone propionate 50 1 spray INTRANASAL BID PRN 11/12/21 05/17/22 Unknown History mcg/actuation nasal spray,suspension furosemide 80 mg tablet 80 mg PO BID 11/12/21 05/17/22 05/16/22 History ipratropium bromide 17 2 puff INHALATION QID PRN 11/12/21 05/17/22 Unknown History mcg/actuation HFA aerosol inhaler (Atrovent HFA) losartan 50 mg tablet 25 mg PO DAILY@12 11/12/21 05/17/22 05/16/22 History magnesium 250 mg tablet 500 mg PO QPM 11/12/21 05/17/22 05/16/22 History spironolactone 25 mg tablet 25 mg PO DAILY@11/12/21 05/17/22 05/16/22 History ascorbic acid (vitamin C) 500 mg 500 mg PO DAILY 12/03/21 05/17/22 05/16/22 History tablet (Vitamin C) ferrous sulfate 325 mg (65 mg 325 mg PO DAILY 12/03/21 05/17/22 05/16/22 History iron) tablet (iron) multivitamin 1 tab PO DAILY 12/03/21 05/17/22 05/16/22 History potassium chloride 20 mEq 20 meq PO BID 05/17/22 05/17/22 05/16/22 History tablet,extended release tamsulosin 0.4 mg capsule 0.4 mg PO BEDTIME 05/17/22 05/17/22 05/16/22 History Allergies Allergy/AdvReac Type Severity Reaction Status Date / Time No Known Allergies Allergy Verified 12/29/21 14:49 PFSH Acute PFSH: Medical History (Updated 05/17/22 @ 21:33 by Thierry Presley MD) Anticoagulated Eliquis on hold Atrial fibrillation Bradycardia CAD (coronary artery disease) Carotid stenosis CVA (cerebral vascular accident) History of prostate cancer HTN (hypertension) Hypercholesteremia Hyponatremia Lower urinary tract symptoms (LUTS) Urinary incontinence Surgical History H/O carotid endarterectomy S/P CABG (coronary artery bypass graft) 1977 and 1992 Family History Father , AT AGE 56 Heart attack Mother , IN HER 50'S Cancer LUNG Social History Smoking and tobacco status: never smoked Alcohol intake: never Marital status: / Current occupational status: retired History of recent travel: No Vitals/I&O/Wt Last Vital Signs Temp 98.2 F 05/17/22 11:45 Pulse 65 05/17/22 12:19 Resp 16 05/17/22 12:19 BP 124/64 05/17/22 12:19 Pulse Ox 93 05/17/22 12:19 Weight last 48 hrs Weight 122.47 kg Physical Exam Narrative: Patient is awake and alert Currently on 2 L nasal cannula No active stridor or wheezing No active respiratory distress No conversational dyspnea or tachypnea No active chest pain Abdomen soft No signs of focal deficit Bilateral lower extremity 3+ pitting edema Erythema without cellulitis of right leg EOMI, PERRLA Data : 05/17/22 12:21 05/17/22 12:21 A&P Assessment and plan (1) Atrial fibrillation: Status: Acute (2) Anemia: Status: Acute (3) Symptomatic anemia: Status: Acute (4) Personal history of colonic polyps: Status: Acute (5) Angiectasia: Status: Acute (6) COVID: Status: Acute Plan COVID-19 related acute hypoxia No signs of respiratory failure No signs of respite distress Start remdesivir, Decadron Patient is requiring 2 L of oxygen Check procalcitonin, Respiratory to assess and treat on daily basis DuoNeb every 4 as needed Patient symptoms started roughly 3 days ago A. fib without RVR Continue anticoagulating agent Continue AV naeem blocking agent BPH: Continue tamsulosin Lower symmetry edema, Compression stockings Continue Lasix D-dimer CTA chest Full code Cardiac diet DVT prophylaxis suffice with Eliquis Attestations Medical Necessity Statement*: Patient might be able to go home if clinically does not deteriorate he has COVID-19 pneumonia, acute hypoxia Less than 2 midnights anticipated Time Spent in Patient Care: 40 Coding Level of Care Code Acute Disability Representative for [facility] Fwd Diagnoses Atrial fibrillation I48.91 Anemia D64.9 Symptomatic anemia D64.9 Personal history of colonic polyps Z86.010 Angiectasia I99.8 COVID U07.1
--- NOTE | 2022-05-17 17:48 | ECG_ITS ---
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 Measurements Intervals [place] Rate: 69 P: [place]: QRS: -18 QRSD: 123 T: 22 QT: 406 QTc: 437 Interpretive Statements ATRIAL FIBRILLATION ANTEROSEPTAL MYOCARDIAL INFARCTION , OF INDETERMINATE AGE [40+ ms Q WAVE IN V1-V4] Compared to ECG 05/17/2022 19:53:02 Ventricular premature complex(es) no longer present Aberrant conduction of supraventricular beat(s) no longer present Myocardial infarct finding still present Electronically Signed On 05-18-2022 16:32:03 CDT by Long Castellanos M.D. [id number]
[2022-05-17 18:11] VITALS: BP 169/98; PULSE 67; RESP 16; O2SAT 95
[2022-05-17 18:53] LABS: Troponin 5 6HR 49.41 ng/L (0-15)
[2022-05-17 18:54] LABS: Troponin 5 6HR Delta 2.41 ng/L (0-12)
[2022-05-17 20:43] LABS: Procalcitonin 0.03 ng/mL (0-0.5)
[2022-05-17 20:50] VITALS: PULSE 83; RESP 18; O2SAT 92
[2022-05-17 22:00] VITALS: PULSE 40
[2022-05-17 22:11] VITALS: BP 205/101; PULSE 84; RESP 17; TEMP 36.5; O2SAT 93
[2022-05-17] MEDS: tamsulosin 0.4 mg Capsule PO (22:36)
[2022-05-17] MEDS: apixaban 5 mg Tablet PO (22:37)
[2022-05-18] VITALS (11 sets, daily range): BP systolic 154–176; BP diastolic 74–83; PULSE 40–96; RESP 13–18; TEMP 36.6–36.7; O2SAT 94–96
[2022-05-18 07:16] LABS: Glucose Point of Care 227 mg/dL (70-110)
[2022-05-18 07:17] LABS: Glucose Point of Care 159 mg/dL (70-110)
--- NOTE | 2022-05-18 08:36 | USCV_ITS ---
Mikal Waller Age: 87 Gender: M : 1935 Exam Date: 05/18/2022 09:14 Ordering Phys: Thierry Presley MD Technologist: Vasquez Yeboah Exam Location: [facility] [place]_ Indication: swelling PROCEDURES: The venous duplex Doppler examination of both lower extremities was performed in the standard fashion. The following venous structures were evaluated: common femoral vein, profunda vein, proximal portion of the greater saphenous vein, superficial femoral vein, and the popliteal vein. In addition, the posterior tibial and peroneal trunk were evaluated. FINDINGS: Normal 2-D Doppler and augmentation and compressibility throughout the lower extremity venous structures. Additional imaging through the proximal calf veins also reveals no thrombus. Limited evaluation of the greater saphenous vein is patent with no thrombus. CONCLUSIONS No DVT bilateral lower extremities. Dr. Rosita Vicente DO (Electronically Signed) Final Date: 18 May 2022 09:46 S
[2022-05-18] MEDS: insulin lispro 100 unit/1 mL SUBCUT ×3 (08:58→18:30)
[2022-05-18] MEDS: apixaban 5 mg Tablet PO ×2 (08:59→21:27)
[2022-05-18] MEDS: dexamethasone 4 mg Tablet 6 MG PO (08:59)
[2022-05-18] MEDS: potassium chloride ER 20 mEq Tablet PO ×2 (08:59→18:30)
[2022-05-18] MEDS: FUROsemide 10 mg/mL SDV 10mL 60 MG IVP (08:59)
[2022-05-18 09:16] LABS: Basophils % 0.2 %; Hematocrit 44.8 % (42.0-52.0); Hemoglobin 15.2 g/dL (11.7-16.6); Lymphocytes # 2.2 10^3/uL (0.8-4.8); Lymphocytes % 42.2 %; Mean Corpuscular HGB Conc 33.9 g/dL (30.0-36.0); Mean Corpuscular Hemoglobin 30.8 pg (28.0-34.0); Mean Corpuscular Volume 90.7 fl (80-94); Mean Platelet Volume 12.1 fL (7.4-10.4); Monocytes # 1.1 10^3/uL (0.2-0.9); Monocytes % 21.3 %; Neutrophils # 1.86 10^3/uL (1.8-7.7); Neutrophils % 35.9 %; Nucleated Red Blood Cells % 0 %; Platelet Count 211 10^3/cmm (130-400); Red Blood Count 4.94 10^6/uL (4.1-5.3); Red Cell Distribution Width 15.5 % (12.1-15.1); White Blood Count 5.2 10^3/uL (4.0-10.0)
[2022-05-18 09:40] LABS: Anion Gap 16.8 (5-19); Blood Urea Nitrogen 29 mg/dL (8-23); C Reactive Protein 17.5 mg/L (0.0-4.9); Carbon Dioxide 25 mmol/L (22-29); Chloride 99 mmol/L (98-107); Glucose 137 mg/dL (65-115); Magnesium 2.4 mg/dL (1.7-2.3); Osmolality Calculated 290 mOsm/kg (285-295); Potassium 4.8 mmol/L (3.5-5.1); Sodium 136 mmol/L (136-145)
[2022-05-18 11:25] LABS: Glucose Point of Care 285 mg/dL (70-110)
[2022-05-18] MEDS: losartan 50 mg Tablet 25 MG PO (12:30)
--- NOTE | 2022-05-18 12:39 | P.PN_ITS ---
Subjective Subjective: This morning patient is wanting to go home however willing to stay when I discussed with him the need of monitoring for now he is on remdesivir and Decadron, currently doing well no active confusion or strokelike features Currently on 2 L Able to eat on his own, no active diarrhea abdomen is soft Vitals/I&O/Wt Last Vital Signs Temp 97.9 F 05/18/22 11:03 Pulse 62 05/18/22 11:03 Resp 18 05/18/22 11:03 BP 167/75 05/18/22 12:30 Pulse Ox 96 05/18/22 11:03 O2 Del Method 05/18/22 11:03 O2 Flow Rate 1 05/18/22 09:25 05/17/22 05/18/22 05/18/22 22:59 06:59 14:59 Intake Total 820 / 820 0 / 820 360 / 360 Output Total 0 / 0 120 / 120 1550 / 1550 Balance 820 / 820 -120 / 700 -1190 / -1190 Weight last 48 hrs Weight 122.47 kg Weight 122.47 kg Physical Exam Narrative: Currently on 2 L nasal cannula Nonfocal neuro exam Abdomen soft No audible stridor or wheezing EOMI, PERRLA S1, S2 Euvolemic Signs of fluid overload and lower extremity No signs of DVT Data : 05/18/22 09:00 05/18/22 09:00 A&P Assessment and plan (1) Atrial fibrillation: Status: Acute (2) Anemia: Status: Acute (3) Symptomatic anemia: Status: Acute (4) Personal history of colonic polyps: Status: Acute (5) Angiectasia: Status: Acute (6) COVID: Status: Acute (7) Hypoxemia: Status: Acute Plan Acute hypoxia COVID-19 No signs of PE or DVT Continue Decadron remdesivir No acute exacerbation No signs of stroke No diarrhea CRP 17.5 Troponin trending down EKG unremarkable No sign of chest pain or acute shortness of breath Patient is on multiple antibiotics willing to stay 1 more day Spoke with his daughter Flip holley without RVR continue Eliquis Continue losartan He also has lower extremity edema no signs of DVT or PE Continue low-dose Lasix with potassium supplementation If clinically stable by tomorrow we will reevaluate him, we might be able to send him home Attestations Medical Necessity Statement*: Discharge tomorrow if clinically Time Spent in Patient Care: 30 Coding Level of Care Code Acute Database Modeler for g Fwd Diagnoses Atrial fibrillation I48.91 Anemia D64.9 Symptomatic anemia D64.9 Personal history of colonic polyps Z86.010 Angiectasia I99.8 COVID U07.1 Hypoxemia R09.02
[2022-05-18 17:10] LABS: Glucose Point of Care 214 mg/dL (70-110)
[2022-05-18] MEDS: magnesium oxide 400 mg tablet PO (18:30)
[2022-05-18] MEDS: remdesivir 100 MG in sodium chloride 0.9% (100 ml) 80 ML IV (18:35)
[2022-05-18 20:37] LABS: Glucose Point of Care 281 mg/dL (70-110)
[2022-05-18] MEDS: tamsulosin 0.4 mg Capsule PO (21:28)
[2022-05-18] MEDS: lanolin oint 7 gm 1 APPLIC TOPICAL (21:42)
[2022-05-19] VITALS (7 sets, daily range): BP systolic 139–180; BP diastolic 73–100; PULSE 36–89; RESP 15–20; TEMP 36.4–36.6; O2SAT 91–94
--- NOTE | 2022-05-19 04:25 | PC.NURSE ---
i reported low pulse 59 to nurse
[2022-05-19 06:37] LABS: Glucose Point of Care 158 mg/dL (70-110)
--- NOTE | 2022-05-19 06:51 | PC.NURSE ---
Pt pulled out IV and wanted to let someone know. Came out of room and yelled for a nurse. As I approached him he stepped back and lost footing. He then landed on his buttox with no injury. Pt is being moved to a closer room. I called hospitalist and then called his son Georgi.
[2022-05-19 07:06] LABS: Basophils % 0.1 %; Hematocrit 43.3 % (42.0-52.0); Hemoglobin 14.5 g/dL (11.7-16.6); Lymphocytes # 2.4 10^3/uL (0.8-4.8); Lymphocytes % 31.9 %; Mean Corpuscular HGB Conc 33.5 g/dL (30.0-36.0); Mean Corpuscular Hemoglobin 30.8 pg (28.0-34.0); Mean Corpuscular Volume 91.9 fl (80-94); Mean Platelet Volume 11.7 fL (7.4-10.4); Monocytes # 1.6 10^3/uL (0.2-0.9); Neutrophils # 3.52 10^3/uL (1.8-7.7); Neutrophils % 46.6 %; Nucleated Red Blood Cells % 0.5 %; Platelet Count 205 10^3/cmm (130-400); Red Blood Count 4.71 10^6/uL (4.1-5.3); Red Cell Distribution Width 15.5 % (12.1-15.1); White Blood Count 7.6 10^3/uL (4.0-10.0)
[2022-05-19 07:24] LABS: Anion Gap 14.8 (5-19); Blood Urea Nitrogen 25 mg/dL (8-23); Calcium 8.8 mg/dL (8.5-10.5); Carbon Dioxide 26 mmol/L (22-29); Chloride 102 mmol/L (98-107); Glucose 147 mg/dL (65-115); Osmolality Calculated 293 mOsm/kg (285-295); Potassium 4.8 mmol/L (3.5-5.1); Sodium 138 mmol/L (136-145)
[2022-05-19] MEDS: insulin lispro 100 unit/1 mL SUBCUT ×2 (07:57→11:53)
--- NOTE | 2022-05-19 08:25 | P.DS_ITS ---
Discharge Providers Date of Admission: 05/17/22 14:32 Date of Discharge: May 19, 2022 Attending Provider at Admission: Thierry Presley MD Attending Provider at Discharge: Thierry Presley MD Primary Care Provider: NAEL Candelario Diagnoses at Discharge Discharge Diagnosis (1) Atrial fibrillation: Status: Acute (2) Anemia: Status: Acute (3) Symptomatic anemia: Status: Acute (4) Personal history of colonic polyps: Status: Acute (5) Angiectasia: Status: Acute (6) COVID: Status: Acute (7) Hypoxemia: Status: Acute Reason for Visit Reason for Visit: low O2 Hospital Course Hospital Course 87-year-old male who developed COVID symptoms 3 days before his arrival in the ER. He does have edema of his legs, history of DVT. On chronic anticoagulation with Eliquis. He was admitted to the hospital for management of hypoxia related to COVID-19. Venous Doppler and CTA chest rule out thromboembolic phenomenon. He was transition from 2 L of oxygen to room air. Patient is stating that he does use 2 L of oxygen on and off at home. He did receive Decadron and remdesivir throughout his hospitalization. EKG showed atrial fibrillation which is not a new finding. On 05/19 he will be discharged home after home O2 evaluation, he does not need any antibiotics. He does not need to quarantine himself he has improved after 5 days of his infection. I will prescribe him albuterol rescue inhaler for as needed use. I have reduced the dose of Lasix to 40 mg daily instead of 80 mg twice daily. Throughout his hospitalization he diuresed very well and edema his legs improved. It is showing skin wrinkling and dryness. Physical Exam Narrative: Patient on room air Clinically doing well Nonfocal neuro exam Abdomen soft Variable S1-S2 Edema of leg slightly improved Awake and alert No audible stridor or wheezing Discharge Data Studies Completed and Pending Completed Studies During Hospitalization Category Date Time Status CTA chest [CT angio chest PE protcl [id number]] Urgent Cat Scan 05/17/22 13:59 Completed XR chest 1V portable [id number] Stat Exams 05/17/22 11:48 Completed US venous duplex lower extremity bilat [CV venous Ultrasound 05/18/22 08:36 [place] [id number]] Routine Radiology Impressions Chest X-Ray 05/17/22 11:48 IMPRESSION: 1. No acute cardiopulmonary finding. Chest CTA 05/17/22 13:59 IMPRESSION: 1. No pulmonary embolism. 2. Volume loss with atelectasis at the RIGHT lung base with slight elevation of the RIGHT hemidiaphragm. 3. No pneumonia. 4. No adenopathy. 5. Mild atherosclerosis aorta. Laboratory Results WBC 7.6 10^3/uL (4.0-10.0) 05/19/22 06:28 RBC 4.71 10^6/uL (4.1-5.3) 05/19/22 06:28 Hgb 14.5 g/dL (11.7-16.6) 05/19/22 06:28 Hct 43.3 % (42.0-52.0) 05/19/22 06: MCV 91.9 fl (80-94) 05/19/22 06:28 MCH 30.8 pg (28.0-34.0) 05/19/22 06: MCHC 33.5 g/dL (30.0-36.0) 05/19/22 06: RDW 15.5 % (12.1-15.1) H 05/19/22 06:28 Plt Count 205 10^3/cmm (130-400) 05/19/22 06:28 MPV 11.7 fL (7.4-10.4) H 05/19/22 06:28 Neut % (Auto) 46.6 % 05/19/22 06:28 Lymph % (Auto) 31.9 % 05/19/22 06:28 [place] % (Auto) 21.0 % 05/19/22 06:28 Eos % (Auto) 0.0 % 05/19/22 06:28 Baso % (Auto) 0.1 % 05/19/22 06:28 Neut # (Auto) 3.52 10^3/uL (1.8-7.7) 05/19/22 06:28 Lymph # (Auto) 2.4 10^3/uL (0.8-4.8) 05/19/22 06:28 [place] # (Auto) 1.6 10^3/uL (0.2-0.9) H 05/19/22 06:28 Eos # (Auto) 0.0 10^3/uL (0.0-0.8) 05/19/22 06:28 Baso # (Auto) 0.0 10^3/uL (0.0-0.1) 05/19/22 06:28 Nucleated RBC % (auto) 0.5 % 05/19/22 06:28 Nucleated RBCs # 0.0 /100WBC 05/19/22 06:28 D-Dimer 2.87 ug/mIFEU (0-0.59) H 05/17/22 13:30 Sodium 138 mmol/L (136-145) 05/19/22 06:28 Potassium 4.8 mmol/L (3.5-5.1) 05/19/22 06:28 Chloride 102 mmol/L (98-107) 05/19/22 06:28 Carbon Dioxide 26 mmol/L (22-29) 05/19/22 06:28 Anion Gap 14.8 (5-19) 05/19/22 06:28 BUN 25 mg/dL (8-23) H 05/19/22 06:28 Creatinine 0.9 mg/dL (0.7-1.2) 05/19/22 06:28 GFR Calculation Not Reportable 05/19/22 06:28 Glucose 147 mg/dL (65-115) H 05/19/22 06:28 POC Glucose 158 mg/dL (70-110) H 05/19/22 06:26 Calculated Osmolality 293 mOsm/kg (285-295) 05/19/22 06:28 Calcium 8.8 mg/dL (8.5-10.5) 05/19/22 06:28 Magnesium 2.4 mg/dL (1.7-2.3) H 05/18/22 09:00 Troponin T Baseline 47 ng/L (0-15) H 05/17/22 12:21 Troponin T 120 Minute 56.10 ng/L (0-15) H 05/17/22 14:30 Delta Troponin T 9.10 ABS# (0-10) 05/17/22 14:30 Troponin T Hi Sens 6Hr 49.41 ng/L (0-15) H 05/17/22 18:12 Troponin T Hi Sens 6Hr Delta 2.41 ng/L (0-12) 05/17/22 18:12 C-Reactive Protein 17.5 mg/L (0.0-4.9) H 05/18/22 09:00 NT-Pro-B Natriuret Pep 806 pg/mL (0-450) H 05/17/22 12:21 Procalcitonin 0.03 ng/mL (0-0.5) 05/17/22 12:21 SARS-CoV-2 Ag (Rapid) Positive (Negative) H 05/17/22 12:21 Vitals Last Vital Signs Temp 97.9 F 05/19/22 08:00 Pulse 89 05/19/22 08:00 Resp 15 05/19/22 08:00 BP 143/84 05/19/22 08:00 Pulse Ox 91 05/19/22 08:00 O2 Del Method 05/19/22 08:00 O2 Flow Rate 1 05/18/22 21:44 Discharge Plan Discharge Patient Disposition: Home Condition: Stable Prescriptions: New albuterol sulfate 90 mcg/actuation HFA aerosol inhaler 2 inh inhalation Q6H PRN (Reason: shortness of breath or wheezing) Qty: 8.5 2RF Continued spironolactone 25 mg tablet 25 mg PO DAILY@12 magnesium 250 mg Tablet 500 mg PO QPM fluticasone propionate 50 mcg/actuation spray,suspension 1 spray INTRANASAL BID PRN (Reason: Nasal Congestion) Atrovent HFA 17 mcg/actuation HFA aerosol inhaler 2 puff INHALATION QID PRN (Reason: Shortness Of Breath) losartan 50 mg tablet 25 mg PO DAILY@12 atorvastatin 40 mg tablet 40 mg PO BEDTIME multivitamin Tablet 1 tab PO DAILY ascorbic acid (vitamin C) [Vitamin C] 500 mg Tablet 500 mg PO DAILY ferrous sulfate [iron] 325 mg (65 mg iron) Tablet 325 mg PO DAILY tamsulosin 0.4 mg capsule 0.4 mg PO BEDTIME potassium chloride 20 mEq tablet extended release 20 meq PO BID Changed furosemide 80 mg tablet 40 mg PO DAILY Qty: 30 0RF Discharge Orders: Discharge Order (Routine); Ordered 05/19/22 Ordered By: Thierry Presley Referrals: Jose Welch FNP [Primary Care Provider] - 06/02/22 10:30 am Discharge Diet: Cardiac Patient Instructions: Opioid Safety Discharge Attestations Time Spent in Discharge Care*: less than 30 min Quality Metrics Clinical Quality Measures [ No reported AMI, CVA or VTE this stay] Coding Level of Care Code Acute [facility] note Diagnoses Atrial fibrillation I48.91 Anemia D64.9 Symptomatic anemia D64.9 Personal history of colonic polyps Z86.010 Angiectasia I99.8 COVID U07.1 Hypoxemia R09.02
[2022-05-19] MEDS: FUROsemide 40 mg Tablet PO (09:14)
[2022-05-19] MEDS: potassium chloride ER 20 mEq Tablet PO (09:15)
[2022-05-19] MEDS: dexamethasone 4 mg Tablet 6 MG PO (09:15)
[2022-05-19] MEDS: apixaban 5 mg Tablet PO (09:15)
[2022-05-19 11:24] LABS: Glucose Point of Care 195 mg/dL (70-110)
[2022-05-19] MEDS: losartan 50 mg Tablet 25 MG PO (11:51)
--- NOTE | 2022-05-19 13:22 | PC.NURSE ---
discharge instructions given and explained to pt and his son.they verb understanding of instructions.discharged via w/c to exit at 1300.son to drive pt home
== END 2022-05-19 13:00 | disposition home or self-care (01) ==
LOC: ER 14:35 → MEDSURG 16:47
PROVIDERS: Admitting Provider Internal Medicine; Emergency Provider Emergency Medicine; PCP Nurse Practitioner; Visit Provider Internal Medicine
DX: U07.1 COVID-19 (principal); I48.91 Unspecified atrial fibrillation; D64.9 Anemia, unspecified; Z86.010 Personal history of colon polyps; I99.8 Other disorder of circulatory system; R09.02 Hypoxemia; R60.9 Edema, unspecified; Z86.718 Personal history of other venous thrombosis and embolism; Z79.01 Long term (current) use of anticoagulants; Z86.73 Personal history of transient ischemic attack (TIA), and cerebral infarction without residual deficits; E78.00 Pure hypercholesterolemia, unspecified; Z95.1 Presence of aortocoronary bypass graft
CPT/HCPCS: 36415; 36416; 71045; 71275; 80048; 82962; 83735; 83880; 84145; 84484; 85025; 85378; 86140; 87426; 93005; 93970; 94664; 94760; 96365; 96366; 96372; 96375; 97161; 97530; 99285; G0378; J1100; J1815; J1940; J8540; Q9967

== ENCOUNTER 2022-06-02 06:00 | Outpatient (RCR) | payer MEDICARE, MEDICAID, SELFPAY | END 2022-06-22 23:59 | disposition home or self-care (01) | LOC: SPT 06:00 | PROVIDERS: PCP Nurse Practitioner; Visit Provider Internal Medicine | DX: R60.0 Localized edema (principal) | CPT/HCPCS: 29581; 97140; 97162 ==

== ENCOUNTER 2022-06-23 06:00 | Outpatient (RCR) | payer MEDICARE, MEDICAID, SELFPAY | END 2022-07-22 23:59 | disposition home or self-care (01) | LOC: SPT 06:00 | PROVIDERS: PCP Nurse Practitioner; Visit Provider Internal Medicine | DX: R60.0 Localized edema (principal) | CPT/HCPCS: 97140 ==

== ENCOUNTER → 2022-06-28 11:23 | Outpatient (BNVA) | payer MEDICARE, MEDICAID, SELFPAY | PROVIDERS: PCP Nurse Practitioner; Visit Provider Internal Medicine Cardiovascular Disease | DX: R60.9 Edema, unspecified (principal); I48.91 Unspecified atrial fibrillation; I10 Essential (primary) hypertension; I25.10 Atherosclerotic heart disease of native coronary artery without angina pectoris; Z95.1 Presence of aortocoronary bypass graft; Z86.16 Personal history of COVID-19 | CPT/HCPCS: 99214 ==

== ENCOUNTER → 2022-11-09 13:00 | Outpatient (BNVA) | payer MEDICARE, MEDICAID, SELFPAY | PROVIDERS: PCP Nurse Practitioner; Visit Provider Podiatrist Foot & Ankle Surgery | DX: I73.9 Peripheral vascular disease, unspecified (principal); I87.2 Venous insufficiency (chronic) (peripheral); R60.0 Localized edema; M79.89 Other specified soft tissue disorders | CPT/HCPCS: 29580; 99204 ==

== ENCOUNTER → 2022-11-30 10:59 | Outpatient (BNVA) | payer MEDICARE, MEDICAID, SELFPAY | PROVIDERS: PCP Nurse Practitioner; Visit Provider Internal Medicine Cardiovascular Disease | DX: I11.0 Hypertensive heart disease with heart failure (principal); I50.9 Heart failure, unspecified; I25.10 Atherosclerotic heart disease of native coronary artery without angina pectoris; Z95.1 Presence of aortocoronary bypass graft; I48.91 Unspecified atrial fibrillation; I65.29 Occlusion and stenosis of unspecified carotid artery | CPT/HCPCS: 99214; Q3014 ==

== ENCOUNTER → 2022-11-30 11:52 | Outpatient (BNVA) | payer MEDICARE, MEDICAID, SELFPAY | PROVIDERS: PCP Nurse Practitioner; Visit Provider Podiatrist Foot & Ankle Surgery | DX: I73.9 Peripheral vascular disease, unspecified (principal); R60.0 Localized edema; M79.89 Other specified soft tissue disorders; I87.2 Venous insufficiency (chronic) (peripheral) | CPT/HCPCS: 99214 ==

== ENCOUNTER 2022-12-07 06:00 | Outpatient (RCR) | payer MEDICARE, MEDICAID, SELFPAY | END 2022-12-20 23:59 | disposition home or self-care (01) | LOC: SPT 06:00 | PROVIDERS: PCP Nurse Practitioner; Visit Provider Nurse Practitioner | DX: R60.9 Edema, unspecified (principal) | CPT/HCPCS: 97161; 99214 ==

== ENCOUNTER 2022-12-23 12:53 | Outpatient (CLI) | payer MEDICARE, MEDICAID, SELFPAY ==
--- NOTE | 2022-12-23 13:00 | USCV_ITS ---
Mikal Waller Age: 87 Gender: M : 1935 Exam Date: 12/23/2022 13:14 Ordering Phys: Kellee Jain MD ([email or web address]) Technologist: Exam Location: [facility] [place] Indication: cca disease Risk Factors: Previous Vascular Surgery: Right Brachial BP: / Left Brachial BP: / Right Left Velocity (cm/s) Spectral Plaque Velocity (cm/s) Spectral Plaque Syst/Diast Broadening Syst/Diast Broadening 58.30/ 10.10 Prox CCA 131.50/ 18.40 69.90/ 11.70 Mid CCA 105.20/ 22.30 121.30/9.90 Distal CCA 110.40/ 21.00 122.60/22.10 Hetro Prox ICA 132.80/ 18.40 Hetro 158.80/20.10 Mid ICA 131.50/ 17.10 114.60/20.10 Distal ICA 135.40/ 17.10 253.30 ECA 180.10 1.31 ICA/CCA 1.03 Antegrade Vertebral Antegrade 60.50/ 5.90 cm/s 67.00/ 18.40 cm/s Bi Subclavian Bi 167.0 105.2 0 0 FINDINGS Intimal thickening and minimal plaques in the common carotid arteries bilaterally Moderate plaques at the left bifurcation and proximal ICA Mild to moderate plaque at the right bifurcation and proximal ICA. Moderate diffuse plaques in the mid and distal ICA on the right side. Antegrade flow in the vertebral arteries bilaterally Elevated velocity in the right external carotid artery. CONCLUSIONS Moderate plaques at the left bifurcation and proximal internal carotid artery with velocity elevation suggesting 50 to 69% stenosis. Mild to moderate plaque at the right bifurcation and proximal internal carotid artery with a Doppler velocity features, suggesting less than 50% stenosis. Elevated velocity in the external carotid artery on the right side, suggestive of hemodynamically significant stenosis. Intimal thickening and minimal plaques in the common carotid arteries bilaterally Dr Louis Merida MD [facility] (Electronically Signed) Final Date: 27 December 2022 18:46 S
== END 2022-12-23 12:54 | disposition home or self-care (01) ==
LOC: RAD 12:57
PROVIDERS: PCP Nurse Practitioner; Visit Provider Internal Medicine Cardiovascular Disease
DX: I65.23 Occlusion and stenosis of bilateral carotid arteries (principal)
CPT/HCPCS: 93880

== ENCOUNTER → 2023-01-25 13:37 | Outpatient (BNVA) | payer MEDICARE, MEDICAID, SELFPAY | PROVIDERS: PCP Nurse Practitioner; Visit Provider Nurse Practitioner Family | DX: I11.0 Hypertensive heart disease with heart failure (principal); I48.91 Unspecified atrial fibrillation; I87.2 Venous insufficiency (chronic) (peripheral) | CPT/HCPCS: 99214 ==

== ENCOUNTER 2024-07-01 16:18 | Emergency (ER) | payer MEDICARE, MEDICAID, SELFPAY ==
[2024-07-01] VITALS (7 sets, daily range): BP systolic 106–147; BP diastolic 52–68; PULSE 50–78; RESP 10–18; TEMP 36.7; O2SAT 91–97; BMI 33.3
--- NOTE | 2024-07-01 16:24 | CTR_ITS ---
PROCEDURE INFORMATION: Exam: CT Head Without Contrast Exam date and time: 07/01/2024 4:43 PM Age: 89 years old Clinical indication: Other: Generalized weakness; Additional info: Weakness/falls TECHNIQUE: Imaging protocol: Computed tomography of the head without contrast. Radiation optimization: All CT scans at this facility use at least one of these dose optimization techniques: automated exposure control; mA and/or kV adjustment per patient size (includes targeted exams where dose is matched to clinical indication); or iterative reconstruction. COMPARISON: CT head wo con* [id number] 09/20/2019 5:33 PM RADIATION DOSE METRICS: Total DLP (mGy-cm): 1176 FINDINGS: Brain: No hemorrhage. No edema. Encephalomalacia from old infarct in the left occipital lobe. Moderate diffuse cerebral atrophy and mild sequela of chronic small vessel ischemic disease. No mass effect. Cerebral ventricles: No ventriculomegaly. Paranasal sinuses: Visualized sinuses are unremarkable. No fluid levels. Mastoid air cells: Visualized mastoid air cells are well aerated. Bones: Unremarkable. No acute fracture. Soft tissues: Unremarkable. CT/CT head wo con* [id number] IMPRESSION: No acute intracranial abnormality.
--- NOTE | 2024-07-01 16:24 | ECG_ITS ---
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 Measurements Intervals [place] Rate: 57 P: 0 [place]: 0 QRS: 28 QRSD: 132 T: 29 QT: 432 QTc: 423 Interpretive Statements ATRIAL FIBRILLATION WITH SLOW VENTRICULAR RESPONSE WITH ABERRANT CONDUCTION OR VENTRICULAR PREMATURE COMPLEXES INTRAVENTRICULAR CONDUCTION DELAY [130+ ms QRS DURATION] SEPTAL MYOCARDIAL INFARCTION , PROBABLY OLD [40+ ms Q WAVE IN V1/V2] Compared to ECG 05/17/2022 23:15:24 Aberrant conduction of supraventricular beat(s) now present Ventricular premature complex(es) now present Intraventricular conduction delay now present Myocardial infarct finding still present Electronically Signed On 07-02-2024 7:48:56 CDT by Scotty Neal M.D. [email or web address] county [email or web address].[email or web address]/[id number] f
--- NOTE | 2024-07-01 16:46 | XRR_ITS ---
PROCEDURE INFORMATION: Exam: XR Right Hip Exam date and time: 07/01/2024 4:55 PM Age: 89 years old Clinical indication: Injury or trauma; Fall; Blunt trauma (contusions or hematomas); Right; Hip; Additional info: Pain after fall TECHNIQUE: Imaging protocol: Radiologic exam of the right hip. Views: 1 view hip with pelvis when performed. COMPARISON: CT abdomen pelvis w con* [id number] 12/03/2021 9:05 PM FINDINGS: Bones/joints: No acute fracture. Soft tissues: Unremarkable. XR/XR hip RT 2-3V wo/w pel* [id number] IMPRESSION: No acute findings.
--- NOTE | 2024-07-01 16:46 | XRR_ITS ---
PROCEDURE INFORMATION: Exam: XR Chest Exam date and time: 07/01/2024 4:53 PM Age: 89 years old Clinical indication: Cough; Prior surgery; Surgery date: 6+ months; Surgery type: Cabg; Additional info: Dyspnea/cough TECHNIQUE: Imaging protocol: Radiologic exam of the chest. Views: 1 view. COMPARISON: CT angio chest PE protcl [id number] 05/17/2022 3:12 PM FINDINGS: Lungs: Unremarkable. No consolidation. Pleural spaces: Unremarkable. No pleural effusion. No pneumothorax. Heart/Mediastinum: Unremarkable. No cardiomegaly. Bones/joints: Sternotomy wires noted. Visualized osseous structures are intact. XR/XR chest 1V portable [id number] IMPRESSION: No acute findings.
--- NOTE | 2024-07-01 16:47 | W.ED.WEAKNES ---
Documented by User: Lavelle Marin DO 07/02/24 06:43 HPI - Weakness General: Chief complaint: Weakness Stated complaint: weakness,falls Time Seen by Provider: 07/01/24 16:24 History of Present Illness: 89-year-old male presents emergency room complaining of increased weakness and recent falls. Over last couple weeks patient is fallen multiple times he is complaining of some right hip pain. He denies striking his head or losing consciousness. Not had any fever sweats or chills she has significant swelling of his lower extremities appears to be chronic with severe chronic venous stasis ulcers in his lower extremities bilaterally. He smells of stale urine. He denies chest or abdominal pain or any other injury Associated symptoms: Denies chest pain, chills, dysuria or fever(s) Review of Systems Const: Denies: fever(s) or chills Card: Denies: chest pain Resp: Denies: dyspnea GI: Denies: abdominal pain : Denies: dysuria, urinary frequency or urinary urgency Musc: Denies: neck pain or back pain Skin/Breast: Denies: rash PFSH ED PFSH: Medical History Bradycardia Hypoxemia COVID History of prostate cancer Urinary incontinence Lower urinary tract symptoms (LUTS) Angiectasia Personal history of colonic polyps Anticoagulated Eliquis on hold Symptomatic anemia Hyponatremia Anemia CVA (cerebral vascular accident) Atrial fibrillation HTN (hypertension) Hypercholesteremia Carotid stenosis CAD (coronary artery disease) Surgical History H/O carotid endarterectomy S/P CABG (coronary artery bypass graft) 1977 and 1992 Family History Father , AT AGE 56 Heart attack Mother , IN HER 50'S Cancer LUNG Social History Smoking and tobacco/nicotine status: never used tobacco/nicotine Alcohol intake: never Substance/Drug Use: never Marital status: / Current occupational status: retired Physical Exam Const: GENERAL APPEARANCE: cooperative ORIENTATION/CONSCIOUSNESS: Yes awake, Yes oriented to person, Yes oriented to place and Yes oriented to time HENMT: COMMON NORMALS: normocephalic, atraumatic and hearing grossly normal bilaterally HEAD & SCALP: normocephalic and atraumatic Resp: COMMON NORMALS: normal respiratory effort, No retractions, No use of accessory muscles and clear to auscultation bilaterally AUSCULTATION: clear to auscultation bilaterally Cardio: COMMON NORMALS: regular rate, regular rhythm and No murmurs present (Cardio) RATE: regular rate RHYTHM: regular rhythm GI: COMMON NORMALS: Soft to palpation and No hepatosplenomegaly present AUSCULTATION: Yes normoactive bowel sounds PALPATION: Yes Soft to palpation, No Tenderness to palpation present (GI), No Guarding due to palpation present (GI) and Yes No hepatosplenomegaly present Extremity: COMMON NORMALS: normal to inspection and capillary refill normal OTHER: 3+ edema lower extremities from the knee distally with skin breakdown and ulceration consistent with early formation of venous stasis ulcers there is some serous drainage from the open areas on his skin. No redness or erythema and no purulent drainage Neuro: SENSORIUM/ORIENTATION: Yes oriented to person, Yes oriented to place and Yes oriented to time Skin: COMMON NORMALS: no rashes or lesions noted GENERAL SKIN EXAM: no rashes or lesions noted Course Vital Signs: Vital signs: Vital Signs Temperature 98.1 F 07/01/24 16:19 Pulse Rate 60 07/01/24 21:03 Respiratory Rate 16 07/01/24 21:03 Blood Pressure 147/68 07/01/24 21:03 Pulse Oximetry 91 07/01/24 21:03 Oxygen Delivery Me thod Room Air 07/01/24 19:12 [facility] Medical Records I reviewed the patient's medical records. Lab Data I reviewed the patient's lab results. 07/01/24 16:38 07/01/24 16:[address] 07/01/24 16:24 IMPRESSION: No acute intracranial abnormality. Chest X-Ray 07/01/24 16:46 IMPRESSION: No acute findings. Hip/Pelvis X-Ray 07/01/24 16:46 IMPRESSION: No acute findings. Venous Duplex 07/01/24 17:55 IMPRESSION: No evidence of deep vein thrombosis. Pelvis CT 07/01/24 19:47 IMPRESSION: 1. No acute findings. 2. 3.3 cm abdominal aortic aneurysm. Laboratory Results WBC 10.01 10^3/uL (3.29-11.43) 07/01/24 16:38 RBC 3.44 10^6/uL (3.85-5.65) L 07/01/24 16:38 Hgb 10.80 g/dL (11.27-16.99) L 07/01/24 16:38 Hct 32.7 % (37-53) L 07/01/24 16:38 MCV 95.1 fl (82-101) 07/01/24 16:38 MCH 31.4 pg (27-33) 07/01/24 16:38 MCHC 33.0 g/dL (30-55) 07/01/24 16:38 RDW 17.0 % (12.1-15.1) H 07/01/24 16:38 Plt Count 363 10^3/cmm (157-399) 07/01/24 16:38 MPV 10.9 fL (7.4-10.4) H 07/01/24 16:38 Neut % (Auto) 58.0 % 07/01/24 16:38 Lymph % (Auto) 22.5 % 07/01/24 16:38 [place] % (Auto) 15.9 % 07/01/24 16:38 Eos % (Auto) 2.6 % 07/01/24 16:38 Baso % (Auto) 0.5 % 07/01/24 16:38 Neut # (Auto) 5.81 10^3/uL (1.8-7.7) 07/01/24 16:38 Lymph # (Auto) 2.3 10^3/uL (0.8-4.8) 07/01/24 16:38 [place] # (Auto) 1.6 10^3/uL (0.2-0.9) H 07/01/24 16:38 Eos # (Auto) 0.3 10^3/uL (0.0-0.8) 07/01/24 16:38 Baso # (Auto) 0.1 10^3/uL (0.0-0.1) 07/01/24 16:38 Nucleated RBC % (auto) 0.2 % 07/01/24 16:38 Nucleated RBCs # 0.0 /100WBC 07/01/24 16:38 Sodium 137 mmol/L (136-145) 07/01/24 16:38 Potassium 4.9 mmol/L (3.5-5.1) 07/01/24 16:38 Chloride 100 mmol/L (98-107) 07/01/24 16:38 Carbon Dioxide 26 mmol/L (22-29) 07/01/24 16:38 Anion Gap 15.9 (5-19) 07/01/24 16:38 BUN 30 mg/dL (8-23) H 07/01/24 16:38 Creatinine 1.0 mg/dL (0.7-1.2) 07/01/24 16:38 GFR Calculation Not Reportable 07/01/24 16:38 Glucose 129 mg/dL (65-115) H 07/01/24 16:38 Calculated Osmolality 292 mOsm/kg (285-295) 07/01/24 16:38 Lactic Acid 1.1 mmol/L (0.5-2.2) 07/01/24 18:55 Calcium 9.6 mg/dL (8.5-10.5) 07/01/24 16:38 Total Bilirubin 0.5 mg/dL (0.15-1.2) 07/01/24 16:38 AST 36 U/L (0-40) 07/01/24 16:38 ALT 25 U/L (0-41) 07/01/24 16:38 Alkaline Phosphatase 104 U/L (40-130) 07/01/24 16:38 Creatine Kinase 272 U/L (39-308) 07/01/24 16:38 Troponin T Baseline 16 ng/L (0-15) H 07/01/24 16:38 Troponin T 120 Minute 15.45 ng/L (0-15) H 07/01/24 18:55 Delta Troponin T -0.55 ABS# (0-10) L 07/01/24 18:55 NT-Pro-B Natriuret Pep 933 pg/mL (0-450) H 07/01/24 16:38 Total Protein 7.4 g/dL (6.6-8.7) 07/01/24 16:38 Albumin 3.5 g/dL (3.5-5.2) 07/01/24 16:38 Globulin 3.9 g/dL (1.3-4.6) 07/01/24 16:38 Urine Color Yellow (Yellow) 07/01/24 17:12 Urine Appearance Clear (CLEAR) 07/01/24 17:12 Urine pH 6.0 (5-7) 07/01/24 17:12 Ur Specific [place] 1.008 (1.005-1.030) 07/01/24 17:12 Urine Protein Negative (Negative) 07/01/24 17:12 Urine Glucose (UA) Negative (Normal) 07/01/24 17:12 Urine Ketones Negative (Negative) 07/01/24 17:12 Urine Blood Negative (Negative) 07/01/24 17:12 Urine Nitrate Negative (Negative) 07/01/24 17:12 Urine Bilirubin Negative (Negative) 07/01/24 17:12 Urine Urobilinogen 1.0 mg/dL (Negative) 07/01/24 17:12 Ur Leukocyte Esterase Negative (Negative) 07/01/24 17:12 Urine RBC 0-2 /hpf (0-2) 07/01/24 17:12 Urine WBC 0-5 /hpf (0-5) 07/01/24 17:12 Ur Squamous Epith Cells 0-5 /hpf (0-5) 07/01/24 17:12 Amorphous Sediment Not Reportable 07/01/24 17:12 Urine Bacteria Trace /hpf (NONE) 07/01/24 17:12 Hyaline Casts 3.30 /lpf 07/01/24 17:12 Discharge Plan Discharge Patient Disposition: Home Clinical Impression: Venous stasis, Falls, Weakness, Hip injury, Venous stasis dermatitis Condition: Stable Prescriptions: New dexamethasone 6 mg tablet 6 mg PO DAILY 5 Days Qty: 5 0RF cephalexin 500 mg capsule 500 mg PO TID 10 Days Qty: 30 0RF No Action furosemide 80 mg tablet 120 mg PO BID Qty: 280 2RF Rx Instructions: 120 m tamsulosin 0.4 mg capsule See Rx Instructions .ROUTE .COMPLEX Qty: 90 3RF Dose Instruction: TAKE ONE CAPSULE BY MOUTH ONCE DAILY AT BEDTIME Rx Instructions: TAKE ONE CAPSULE BY MOUTH ONCE DAILY AT BEDTIME losartan 50 mg tablet 25 mg PO DAILY@12 Qty: 90 2RF metolazone 2.5 mg tablet 2.5 mg PO .every other day Qty: 30 1RF Rx Instructions: 1 tab every other day spironolactone 25 mg tablet 25 mg PO DAILY@12 magnesium 250 mg Tablet 500 mg PO QPM fluticasone propionate 50 mcg/actuation spray,suspension 1 spray INTRANASAL BID PRN (Reason: Nasal Congestion) Atrovent HFA 17 mcg/actuation HFA aerosol inhaler 2 puff INHALATION QID PRN (Reason: Shortness Of Breath) atorvastatin 40 mg tablet 40 mg PO BEDTIME multivitamin Tablet 1 tab PO DAILY ascorbic acid (vitamin C) [Vitamin C] 500 mg Tablet 500 mg PO DAILY ferrous sulfate [iron] 325 mg (65 mg iron) tablet 325 mg PO BID albuterol sulfate 90 mcg/actuation HFA aerosol inhaler 2 inh inhalation Q6H PRN (Reason: shortness of breath or wheezing) Qty: 8.5 2RF potassium chloride 20 mEq tablet extended release 20 meq PO .COMPLEX Rx Instructions: 30 meq twice a day Discharge Orders: Discharge ED (Routine); Ordered 07/01/24 Ordered By: Didi Dutton Referrals: Jose Welch FNP [Primary Care Provider] - Discharge Diet: Usual diet Discharge Activity: Increase activity as tolerated Patient Instructions: Fall Prevention for Older Adults (ED), Stasis Dermatitis (ED), Venous Insufficiency (DC) Activity Restrictions/Additional Instructions: Thank you for choosing [facility] for your healthcare needs today. Please realize this is an emergency room and that we are providing you with a medical screening exam and this may not be complete and all inclusive of all the testing and or work up that you may need to determine your ailment or severity of your illness. You have been screened and evaluated and felt safe for discharge. Health conditions do change or evolve sometimes and as such it is important that you follow up with your Primary Doctor to be re checked, 3-5 days is a general good time frame for follow up. You are always welcome to return to the ED for re assessment if your symptoms are worsening or you have new concerns Coding Level of Care Code ED Hat And Cap Sewer for Alphonso Rich Related Data Home Medications Medication Instructions Recorded Confirmed atorvastatin 40 mg tablet 40 mg PO BEDTIME 11/12/21 03/29/23 fluticasone propionate 50 1 spray intranasal BID PRN Nasal 11/12/21 03/29/23 mcg/actuation nasal Congestion spray,suspension ipratropium bromide 17 2 puff inhalation QID PRN 11/12/21 03/29/23 mcg/actuation HFA aerosol inhaler Shortness Of Breath (Atrovent HFA) magnesium 250 mg tablet 500 mg PO QPM 11/12/21 03/29/23 spironolactone 25 mg tablet 25 mg PO DAILY@12 11/12/21 03/29/23 ascorbic acid (vitamin C) 500 mg 500 mg PO DAILY 12/03/21 03/29/23 tablet (Vitamin C) multivitamin 1 tab PO DAILY 12/03/21 03/29/23 ferrous sulfate 325 mg (65 mg 325 mg PO BID 11/30/22 03/29/23 iron) tablet (iron) potassium chloride 20 mEq 20 meq PO .COMPLEX 11/30/22 03/29/23 tablet,extended release Previous Rx's Medication Instructions Recorded albuterol sulfate 90 mcg/actuation 2 inh inhalation Q6H PRN shortness 05/19/22 aerosol inhaler of breath or wheezing #8.5 grams tamsulosin 0.4 mg capsule See Rx Instructions .Route 01/19/23 .COMPLEX #90 caps furosemide 80 mg tablet 120 mg (1.5 x 80 mg) PO BID #280 01/25/23 tabs losartan 50 mg tablet 25 mg (1/2 x 50 mg) PO DAILY@12 07/04/23 #90 tabs metolazone 2.5 mg tablet 2.5 mg PO .every other day #30 tabs 09/01/23 cephalexin 500 mg capsule 500 mg PO TID 10 days #30 caps 07/01/24 dexamethasone 6 mg tablet 6 mg PO DAILY 5 days #5 tabs 07/01/24 Allergies Allergy/AdvReac Type Severity Reaction Status Date / Time No Known Allergies Allergy Verified 07/26/23 07:31 Documented by User: Didi Dutton MD 07/01/24 20:44 HPI - Weakness General: Chief complaint: Weakness Stated complaint: weakness,falls Time Seen by Provider: 07/01/24 16:24 PFSH ED PFSH: Medical History Bradycardia Hypoxemia COVID History of prostate cancer Urinary incontinence Lower urinary tract symptoms (LUTS) Angiectasia Personal history of colonic polyps Anticoagulated Eliquis on hold Symptomatic anemia Hyponatremia Anemia CVA (cerebral vascular accident) Atrial fibrillation HTN (hypertension) Hypercholesteremia Carotid stenosis CAD (coronary artery disease) Surgical History H/O carotid endarterectomy S/P CABG (coronary artery bypass graft) 1977 and 1992 Family History Father , AT AGE 56 Heart attack Mother , IN HER 50'S Cancer LUNG Social History Smoking and tobacco/nicotine status: never used tobacco/nicotine Alcohol intake: never Substance/Drug Use: never Marital status: / Current occupational status: retired Course Vital Signs: Vital signs: Vital Signs Temperature 98.1 F 07/01/24 16:19 Pulse Rate 60 07/01/24 21:03 Respiratory Rate 16 07/01/24 21:03 Blood Pressure 147/68 07/01/24 21:03 Pulse Oximetry 91 07/01/24 21:03 Oxygen Delivery Tn thod Room Air 07/01/24 19:12 MDM - Weakness Medical Decision Making Patient care transitioned to ct at shift change. CT head: No acute intracranial process. no intracranial hemorrhage, no evidence of infarct. no evidence of acute fracture.This was reviewed and interpreted by myself the ER physician. Chest x-ray: No acute process. No infiltrate. No pneumothorax. This was reviewed and interpreted by myself the ER physician. X-ray of the hip and pelvis: No acute findings were seen. Patient was complaining of very severe pain so I did order CT scan which was also negative. Lab review: Lab work was reviewed and interpreted on self emergency room physician. Patient was sent here because of a concern for anemia. He actually has a hemoglobin of 10.8 which is not very anemic. BUN and creatinine are 30 and 1.0 which given the amount of Lasix he is on for like his kidneys are doing pretty well. Reexamination: Patient remained stable. No increased work of breathing. No altered mental status. No focal motor deficits. I spoke with patient and with family at length about venous stasis and that is a mechanical problem and that he will need compression and elevation. May be some early cellulitis and somata place him on some antibiotics and some steroids for his hip. correction for rehab or [place] [facility] placement were discussed and family is completely opposed to this. Assessment and plan: Venous stasis and venous stasis dermatitis Fall Hip pain - Discharged home - Discussed findings and plan with patient. Answered any questions. - All laboratory values were reviewed and interpreted personally by myself, the ER physician - All imaging was reviewed and interpreted personally by myself, the ER physician. - Evaluation and treatment of this problem were appropriate in the emergency setting Lab Data 07/01/24 16:38 07/01/24 16:[address] 07/01/24 16:24 IMPRESSION: No acute intracranial abnormality. Chest X-Ray 07/01/24 16:46 IMPRESSION: No acute findings. Hip/Pelvis X-Ray 07/01/24 16:46 IMPRESSION: No acute findings. Venous Duplex 07/01/24 17:55 IMPRESSION: No evidence of deep vein thrombosis. Pelvis CT 07/01/24 19:47 IMPRESSION: 1. No acute findings. 2. 3.3 cm abdominal aortic aneurysm. Laboratory Results WBC 10.01 10^3/uL (3.29-11.43) 07/01/24 16:38 RBC 3.44 10^6/uL (3.85-5.65) L 07/01/24 16:38 Hgb 10.80 g/dL (11.27-16.99) L 07/01/24 16:38 Hct 32.7 % (37-53) L 07/01/24 16:38 MCV 95.1 fl (82-101) 07/01/24 16:38 MCH 31.4 pg (27-33) 07/01/24 16:38 MCHC 33.0 g/dL (30-55) 07/01/24 16:38 RDW 17.0 % (12.1-15.1) H 07/01/24 16:38 Plt Count 363 10^3/cmm (157-399) 07/01/24 16:38 MPV 10.9 fL (7.4-10.4) H 07/01/24 16:38 Neut % (Auto) 58.0 % 07/01/24 16:38 Lymph % (Auto) 22.5 % 07/01/24 16:38 [place] % (Auto) 15.9 % 07/01/24 16:38 Eos % (Auto) 2.6 % 07/01/24 16:38 Baso % (Auto) 0.5 % 07/01/24 16:38 Neut # (Auto) 5.81 10^3/uL (1.8-7.7) 07/01/24 16:38 Lymph # (Auto) 2.3 10^3/uL (0.8-4.8) 07/01/24 16:38 [place] # (Auto) 1.6 10^3/uL (0.2-0.9) H 07/01/24 16:38 Eos # (Auto) 0.3 10^3/uL (0.0-0.8) 07/01/24 16:38 Baso # (Auto) 0.1 10^3/uL (0.0-0.1) 07/01/24 16:38 Nucleated RBC % (auto) 0.2 % 07/01/24 16:38 Nucleated RBCs # 0.0 /100WBC 07/01/24 16:38 Sodium 137 mmol/L (136-145) 07/01/24 16:38 Potassium 4.9 mmol/L (3.5-5.1) 07/01/24 16:38 Chloride 100 mmol/L (98-107) 07/01/24 16:38 Carbon Dioxide 26 mmol/L (22-29) 07/01/24 16:38 Anion Gap 15.9 (5-19) 07/01/24 16:38 BUN 30 mg/dL (8-23) H 07/01/24 16:38 Creatinine 1.0 mg/dL (0.7-1.2) 07/01/24 16:38 GFR Calculation Not Reportable 07/01/24 16:38 Glucose 129 mg/dL (65-115) H 07/01/24 16:38 Calculated Osmolality 292 mOsm/kg (285-295) 07/01/24 16:38 Lactic Acid 1.1 mmol/L (0.5-2.2) 07/01/24 18:55 Calcium 9.6 mg/dL (8.5-10.5) 07/01/24 16:38 Total Bilirubin 0.5 mg/dL (0.15-1.2) 07/01/24 16:38 AST 36 U/L (0-40) 07/01/24 16:38 ALT 25 U/L (0-41) 07/01/24 16:38 Alkaline Phosphatase 104 U/L (40-130) 07/01/24 16:38 Creatine Kinase 272 U/L (39-308) 07/01/24 16:38 Troponin T Baseline 16 ng/L (0-15) H 07/01/24 16:38 Troponin T 120 Minute 15.45 ng/L (0-15) H 07/01/24 18:55 Delta Troponin T -0.55 ABS# (0-10) L 07/01/24 18:55 NT-Pro-B Natriuret Pep 933 pg/mL (0-450) H 07/01/24 16:38 Total Protein 7.4 g/dL (6.6-8.7) 07/01/24 16:38 Albumin 3.5 g/dL (3.5-5.2) 07/01/24 16:38 Globulin 3.9 g/dL (1.3-4.6) 07/01/24 16:38 Urine Color Yellow (Yellow) 07/01/24 17:12 Urine Appearance Clear (CLEAR) 07/01/24 17:12 Urine pH 6.0 (5-7) 07/01/24 17:12 Ur Specific [place] 1.008 (1.005-1.030) 07/01/24 17:12 Urine Protein Negative (Negative) 07/01/24 17:12 Urine Glucose (UA) Negative (Normal) 07/01/24 17:12 Urine Ketones Negative (Negative) 07/01/24 17:12 Urine Blood Negative (Negative) 07/01/24 17:12 Urine Nitrate Negative (Negative) 07/01/24 17:12 Urine Bilirubin Negative (Negative) 07/01/24 17:12 Urine Urobilinogen 1.0 mg/dL (Negative) 07/01/24 17:12 Ur Leukocyte Esterase Negative (Negative) 07/01/24 17:12 Urine RBC 0-2 /hpf (0-2) 07/01/24 17:12 Urine WBC 0-5 /hpf (0-5) 07/01/24 17:12 Ur Squamous Epith Cells 0-5 /hpf (0-5) 07/01/24 17:12 Amorphous Sediment Not Reportable 07/01/24 17:12 Urine Bacteria Trace /hpf (NONE) 07/01/24 17:12 Hyaline Casts 3.30 /lpf 07/01/24 17:12 All radiology interpretation(s) finalized by discharge Discharge Plan Discharge Patient Disposition: Home Clinical Impression: Venous stasis, Falls, Weakness, Hip injury, Venous stasis dermatitis Condition: Stable Prescriptions: New dexamethasone 6 mg tablet 6 mg PO DAILY 5 Days Qty: 5 0RF cephalexin 500 mg capsule 500 mg PO TID 10 Days Qty: 30 0RF No Action furosemide 80 mg tablet 120 mg PO BID Qty: 280 2RF Rx Instructions: 120 m tamsulosin 0.4 mg capsule See Rx Instructions .ROUTE .COMPLEX Qty: 90 3RF Dose Instruction: TAKE ONE CAPSULE BY MOUTH ONCE DAILY AT BEDTIME Rx Instructions: TAKE ONE CAPSULE BY MOUTH ONCE DAILY AT BEDTIME losartan 50 mg tablet 25 mg PO DAILY@12 Qty: 90 2RF metolazone 2.5 mg tablet 2.5 mg PO .every other day Qty: 30 1RF Rx Instructions: 1 tab every other day spironolactone 25 mg tablet 25 mg PO DAILY@12 magnesium 250 mg Tablet 500 mg PO QPM fluticasone propionate 50 mcg/actuation spray,suspension 1 spray INTRANASAL BID PRN (Reason: Nasal Congestion) Atrovent HFA 17 mcg/actuation HFA aerosol inhaler 2 puff INHALATION QID PRN (Reason: Shortness Of Breath) atorvastatin 40 mg tablet 40 mg PO BEDTIME multivitamin Tablet 1 tab PO DAILY ascorbic acid (vitamin C) [Vitamin C] 500 mg Tablet 500 mg PO DAILY ferrous sulfate [iron] 325 mg (65 mg iron) tablet 325 mg PO BID albuterol sulfate 90 mcg/actuation HFA aerosol inhaler 2 inh inhalation Q6H PRN (Reason: shortness of breath or wheezing) Qty: 8.5 2RF potassium chloride 20 mEq tablet extended release 20 meq PO .COMPLEX Rx Instructions: 30 meq twice a day Discharge Orders: Discharge ED (Routine); Ordered 07/01/24 Ordered By: Didi Dutton Referrals: Jose Welch FNP [Primary Care Provider] - Discharge Diet: Usual diet Discharge Activity: Increase activity as tolerated Patient Instructions: Fall Prevention for Older Adults (ED), Stasis Dermatitis (ED), Venous Insufficiency (DC) Activity Restrictions/Additional Instructions: Thank you for choosing [facility] for your healthcare needs today. Please realize this is an emergency room and that we are providing you with a medical screening exam and this may not be complete and all inclusive of all the testing and or work up that you may need to determine your ailment or severity of your illness. You have been screened and evaluated and felt safe for discharge. Health conditions do change or evolve sometimes and as such it is important that you follow up with your Primary Doctor to be re checked, 3-5 days is a general good time frame for follow up. You are always welcome to return to the ED for re assessment if your symptoms are worsening or you have new concerns Coding Level of Care Code ED Hat And Cap Sewer for Mallikag Fwd Related Data Home Medications Medication Instructions Recorded Confirmed atorvastatin 40 mg tablet 40 mg PO BEDTIME 11/12/21 03/29/23 fluticasone propionate 50 1 spray intranasal BID PRN Nasal 11/12/21 03/29/23 mcg/actuation nasal Congestion spray,suspension ipratropium bromide 17 2 puff inhalation QID PRN 11/12/21 03/29/23 mcg/actuation HFA aerosol inhaler Shortness Of Breath (Atrovent HFA) magnesium 250 mg tablet 500 mg PO QPM 11/12/21 03/29/23 spironolactone 25 mg tablet 25 mg PO DAILY@12 11/12/21 03/29/23 ascorbic acid (vitamin C) 500 mg 500 mg PO DAILY 12/03/21 03/29/23 tablet (Vitamin C) multivitamin 1 tab PO DAILY 12/03/21 03/29/23 ferrous sulfate 325 mg (65 mg 325 mg PO BID 11/30/22 03/29/23 iron) tablet (iron) potassium chloride 20 mEq 20 meq PO .COMPLEX 11/30/22 03/29/23 tablet,extended release Previous Rx's Medication Instructions Recorded albuterol sulfate 90 mcg/actuation 2 inh inhalation Q6H PRN shortness 05/19/22 aerosol inhaler of breath or wheezing #8.5 grams tamsulosin 0.4 mg capsule See Rx Instructions .Route 01/19/23 .COMPLEX #90 caps furosemide 80 mg tablet 120 mg (1.5 x 80 mg) PO BID #280 01/25/23 tabs losartan 50 mg tablet 25 mg (1/2 x 50 mg) PO DAILY@12 07/04/23 #90 tabs metolazone 2.5 mg tablet 2.5 mg PO .every other day #30 tabs 09/01/23 cephalexin 500 mg capsule 500 mg PO TID 10 days #30 caps 07/01/24 dexamethasone 6 mg tablet 6 mg PO DAILY 5 days #5 tabs 07/01/24 Allergies Allergy/AdvReac Type Severity Reaction Status Date / Time No Known Allergies Allergy Verified 07/26/23 07:31
[2024-07-01 16:56] LABS: Basophils # 0.1 10^3/uL (0.0-0.1); Basophils % 0.5 %; Eosinophils # 0.3 10^3/uL (0.0-0.8); Eosinophils % 2.6 %; Hematocrit 32.7 % (37-53); Lymphocytes # 2.3 10^3/uL (0.8-4.8); Lymphocytes % 22.5 %; Mean Corpuscular Hemoglobin 31.4 pg (27-33); Mean Corpuscular Volume 95.1 fl (82-101); Mean Platelet Volume 10.9 fL (7.4-10.4); Monocytes # 1.6 10^3/uL (0.2-0.9); Monocytes % 15.9 %; Neutrophils # 5.81 10^3/uL (1.8-7.7); Nucleated Red Blood Cells % 0.2 %; Platelet Count 363 10^3/cmm (157-399); Red Blood Count 3.44 10^6/uL (3.85-5.65); White Blood Count 10.01 10^3/uL (3.29-11.43)
[2024-07-01 17:16] LABS: Troponin(5th) Baseline 16 ng/L (0-15)
[2024-07-01 17:23] LABS: Alanine Aminotransferase 25 U/L (0-41); Albumin Level 3.5 g/dL (3.5-5.2); Alkaline Phosphatase 104 U/L (40-130); Anion Gap 15.9 (5-19); Aspartate Amino Transferase 36 U/L (0-40); Blood Urea Nitrogen 30 mg/dL (8-23); Calcium 9.6 mg/dL (8.5-10.5); Carbon Dioxide 26 mmol/L (22-29); Chloride 100 mmol/L (98-107); Creatinine Clr Calc Pharmacy 69.6898; Globulin 3.9 g/dL (1.3-4.6); Glucose 129 mg/dL (65-115); NT Pro B Type Natriuretic Pept 933 pg/mL (0-450); Osmolality Calculated 292 mOsm/kg (285-295); Potassium 4.9 mmol/L (3.5-5.1); Sodium 137 mmol/L (136-145); Total Bilirubin 0.5 mg/dL (0.15-1.2); Total Protein 7.4 g/dL (6.6-8.7)
[2024-07-01 17:24] LABS: Slide Review Slide Review Perform
[2024-07-01 17:32] LABS: Charge for UA Resulting for Rev
[2024-07-01 17:42] LABS: Creatine Phosphokinase 272 U/L (39-308)
[2024-07-01 17:49] LABS: Bilirubin Urine Negative (Negative); Blood Urine Negative (Negative); Glucose Urine UA Negative (Normal); Ketones Urine Negative (Negative); Leukocyte Esterase Urine Negative (Negative); Nitrate Urine Negative (Negative); Protein Urine Negative (Negative); Specific Gravity, Urine 1.008 (1.005-1.030); Urine Appearance Clear (CLEAR); Urine Color Yellow (Yellow)
[2024-07-01 17:54] LABS: Bacteria Urine Trace /hpf; RBC Urine 0-2 /hpf (0-2); Squamous Epithelial Cell Urine 0-5 /hpf (0-5); WBC Urine 0-5 /hpf (0-5)
--- NOTE | 2024-07-01 17:55 | USR_ITS ---
PROCEDURE INFORMATION: Exam: US Duplex Lower Extremity Veins, Bilateral Exam date and time: 07/01/2024 6:07 PM Age: 89 years old Clinical indication: Edema, localized; Lower extremity, bilateral; Patient HX: Massive edema and severe prolific ulcerations of bilateral lower extremities, chronic for years. ; Additional info: Leg edema TECHNIQUE: Imaging protocol: Real-time duplex ultrasound of the bilateral extremities with 2-D mclaughlin scale, color Doppler flow and spectral waveform analysis including responses to compression and other maneuvers (when performed) with image documentation. Complete exam focused on the lower extremity veins. COMPARISON: CT abdomen pelvis w con* [id number] 12/03/2021 9:05 PM FINDINGS: Right deep veins: The common femoral, femoral, proximal profunda femoral and popliteal veins are patent without thrombus. Left deep veins: The common femoral, femoral, proximal profunda femoral and popliteal veins are patent without thrombus. Superficial veins: Greater saphenous veins at the saphenofemoral junctions are patent bilaterally without thrombus. Soft tissues: Subcutaneous edema in the lower extremities. US/CV venous duplex [facility] [id number] IMPRESSION: No evidence of deep vein thrombosis.
--- NOTE | 2024-07-01 18:44 | ECG_ITS ---
[facility] Test Date: 2024-07-01 Pat Name: Mikal Waller Department: Room: Gender: Male [employer]: : [id number] Requested By: Lavelle Swan Order Number: [id number] Marciano MD: Scotty Neal M.D. Measurements Intervals [place] Rate: 53 P: 0 GA: 0 QRS: 61 QRSD: 122 T: 55 QT: 446 QTc: 419 Interpretive Statements ATRIAL FIBRILLATION WITH SLOW VENTRICULAR RESPONSE WITH ABERRANT CONDUCTION OR VENTRICULAR PREMATURE COMPLEXES SEPTAL MYOCARDIAL INFARCTION , PROBABLY OLD [40+ ms Q WAVE IN V1/V2] Compared to ECG 07/01/2024 16:22:23 Intraventricular conduction delay no longer present Myocardial infarct finding still present Electronically Signed On 07-02-2024 7:48:47 CDT by Scotty Neal M.D. [email or web address]
[2024-07-01 19:18] LABS: Lactic Sepsis W/Reflex 1.1 mmol/L (0.5-2.2)
[2024-07-01 19:20] LABS: Troponin 5 2HR 15.45 ng/L (0-15)
[2024-07-01 19:21] LABS: Troponin 5 2HR Delta -0.55 ABS# (0-10)
--- NOTE | 2024-07-01 19:47 | CTR_ITS ---
PROCEDURE INFORMATION: Exam: CT Pelvis Without Contrast, Skeleton Exam date and time: 07/01/2024 7:56 PM Age: 89 years old Clinical indication: Injury or trauma; Fall; Blunt trauma (contusions or hematomas); Right; Hip; Additional info: Right hip and pelvic pain TECHNIQUE: Imaging protocol: Computed tomography of the pelvis without contrast. Exam focused on the skeleton. Radiation optimization: All CT scans at this facility use at least one of these dose optimization techniques: automated exposure control; mA and/or kV adjustment per patient size (includes targeted exams where dose is matched to clinical indication); or iterative reconstruction. COMPARISON: CT abdomen pelvis w con* [id number] 12/03/2021 9:05 PM RADIATION DOSE METRICS: Total DLP (mGy-cm): 752 FINDINGS: Vasculature: 3.3 cm infrarenal abdominal aortic aneurysm. Bones/joints: Generalized osseous demineralization. No acute fracture. No dislocation. Soft tissues: Unremarkable. CT/CT pelvis wo con [id number] IMPRESSION: 1. No acute findings. 2. 3.3 cm abdominal aortic aneurysm.
[2024-07-01] MEDS: cefTRIAXone 1,000 mg SDV 1000 MG IVP (21:00)
[2024-07-01] MEDS: dexamethasone 10 mg/mL INJ IVP (21:01)
== END 2024-07-01 21:18 | disposition home or self-care (01) ==
PROVIDERS: Family Medicine; Emergency Provider Emergency Medicine; PCP Nurse Practitioner
DX: I87.8 Other specified disorders of veins (principal); R53.1 Weakness; I87.2 Venous insufficiency (chronic) (peripheral); S79.911A Unspecified injury of right hip, initial encounter; Z85.46 Personal history of malignant neoplasm of prostate; Z86.73 Personal history of transient ischemic attack (TIA), and cerebral infarction without residual deficits; I10 Essential (primary) hypertension; I25.10 Atherosclerotic heart disease of native coronary artery without angina pectoris; Z95.1 Presence of aortocoronary bypass graft; W19.XXXA Unspecified fall, initial encounter
CPT/HCPCS: 36415; 70450; 71045; 72192; 73502; 80053; 81003; 81015; 82550; 83605; 83880; 84484; 85025; 87040; 93005; 93970; 96374; 96375; 99285; J0696; J1100